=== PATIENT | male | born 1935 | race African-American/Black ===

== ENCOUNTER 2017-07-23 08:50 | Inpatient (IN) | payer MEDICARE, OTHER ==
[2017-07-23 09:56] LABS: Hematocrit 19.6 % (42.0-52.0); Mean Platelet Volume 13.9 fL (7.4-10.4); Red Blood Cell (RBC) Count 2.01 mill/uL (4.70-6.10); White Blood Cell (WBC) Count 3.4 thou/uL (4.8-10.8)
[2017-07-23 09:59] LABS: PTT 31.4 SEC (22.9-36.1); Prothrombin Time 14.1 SEC (12.0-14.7)
[2017-07-23 10:11] LABS: Anisocytosis SLIGHT = 6-15 cells (100X) (0-5/hpf); Band 23 % (5-11); Neutrophil 43 % (42-75); Polychromasia SLIGHT = 2-3 cells (100X) (0-2/hpf)
[2017-07-23 10:13] LABS: ALT (SGPT) 12 U/L (8-55); AST (SGOT) 17 U/L (5-34); Alkaline Phosphatase 76 U/L (40-150); Anion Gap 15 mmol/L (10-20); BUN (Urea Nitrogen) 67 mg/dL (8.4-25.7); Bilirubin, Total 0.8 mg/dL (0.2-1.2); Calc. Creatinine Clearance 0 mL/min (70-130); Calcium 8.9 mg/dL (7.8-10.44); Carbon Dioxide 31 mmol/L (23-31); Chloride 98 mmol/L (98-107); Estimated GFR-MDRD 13; Globulin 4.5 g/dL (2.4-3.5); Lipase 20 U/L (8-78); Protein, Total 7.8 g/dL (5.8-8.1)
--- NOTE | 2017-07-23 11:58 | CT ---
CT ANGIOGRAM ABDOMEN AND PELVIS WITH IV CONTRAST AND 3D RECONSTRUCTIONS: DATE: 07/23/17. HISTORY: Bright red blood in stool with onset of symptoms 1 day ago. The patient has associated abdominal ofelia n. COMPARISON: Noncontrasted CT abdomen and pelvis on 10/03/13 as well as noncontrast CT thorax on 11/30/14. There is bibasilar atelectasis present with motion at each lung base. There is persistent elevation of the left hemidiaphragm. Multiple osseous sclerotic metastatic lesions are seen throughout visualized thoracic as well as lumb ar spine involving the visualized lower ribs and each scapulae as well as multiple sclerotic metastat ic lesions within the pelvis and involving the visualized proximal bilateral femurs. Postsurgical ch anges lumbar spine are noted with pedicular screws within the L2, L3, and L4 vertebral bodies with ev idence of posterior fusion at these levels. There is a focal area of moderate narrowing involving the proximal superior mesenteric artery which d oes not appear to represent atherosclerotic area of narrowing and is likely related to a kink as the vessel extends at a 90-degree angle to the left in this region. The superior mesenteric and inferior mesenteric arteries appear patent. There is a single patent right renal artery with 2 left renal ar teries which are small in caliber but do appear patent. The abdominal aorta is normal in caliber without evidence of an aortic dissection. There is scattere d calcified atherosclerotic plaque within the abdominal aorta as well as involving the iliac arteries . There is mild narrowing involving the proximal bilateral internal iliac arteries due to eccentric atherosclerotic plaque. Bilateral common femoral arteries are patent, and the most proximal bilatera l superficial femoral arteries are patent. There is atherosclerotic narrowing and plaque in the prox imal right superficial femoral artery. There is a hypodense lesion at the superior pole left kidney measuring 2 cm, which does demonstrate a ttenuation coefficient suggesting a cyst. There are 2 additional subcentimeter too small to characte rize hypodense lesions in the superior pole and mid portion of the left kidney. The liver, spleen, pancreas, bilateral adrenal glands, and the right kidney demonstrate a normal CT a ppearance. Calcified granuloma is seen in the right hepatic lobe. The becker of the urinary bladder appear thickened, some of which could be related to incomplete diste ntion. However, cystitis is a possibility. Surgical clips are seen in the pelvis with findings which may be related to prostatectomy as the pros romero gland is not visualized on this exam. The becker of the rectum appear mildly thickened, but this is probably related to incomplete distentio n. The opacified small bowel has a normal CT appearance and no dilated loops of small bowel are pres ent. IMPRESSION: 1. Diffuse osteoblastic metastatic disease. 2. Prostatectomy. 3. Left renal cyst with subcentimeter difficult to characterize hypodense left renal lesion also pre sent. 4. Post cholecystectomy changes. 5. Prominent elevation of the left hemidiaphragm with volume loss present at each lung base. 6. No dilated loops of small bowel are seen. 7. There is a moderate to severe focal narrowing in the proximal superior mesenteric artery, but thi s is probably related to a prominent kink; there is no evidence of atherosclerotic narrowing of the s uperior mesenteric artery. The superior mesenteric artery distal to this region is well opacified. 8. Postsurgical changes right iliac bone. There are also postsurgical changes lumbar spine. POS: LARRY
--- NOTE | 2017-07-23 13:54 | HP-2 ---
CODE STATUS: FULL. PRIMARY CARE PHYSICIAN: Dr. Osei Forbes in [place], [place]. ATTENDING PHYSICIAN: Shari Fry M.D. RESIDENT PHYSICIAN: Jf Dumont M.D. CHIEF COMPLAINT: Bright red blood per rectum. HISTORY OF PRESENT ILLNESS: This is an 82-year-old male who presents with a 1-day history of bright red blood per rectum. He has had multiple year history of episodes of GI bleeding and had a workup e xtensively with the last endoscopy completed in 12/2016 that was unremarkable. He states he usually gets transfused and then discharged home. He is under treatment for bone cancer and has had radiatio n as recently as two and a half months ago. He states his bowel movements are watery with blood. He states he feels weak and lightheaded when he stands. Two to three weeks ago, he had a similar episo de in [place] and he was hospitalized at that time and received transfusion too. In the ER, he was t ransfused 1 unit of platelets and 1 unit of packed red blood cells. 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 PAST SURGICAL HISTORY: Cholecystectomy, back surgery x3, hernia and dialysis shunt and then a TURP. ALLERGIES: Apresoline. MEDICATIONS: 1. Amlodipine 5 mg. 2. Metoprolol tartrate 50 mg b.i.d. 3. Gabapentin 300 mg. 4. Doxazosin 2 mg. 5. Bicalutamide 50 mg. 6. Sodium bicarbonate 650 mg b.i.d. 7. Hydralazine 50 mg. FAMILY HISTORY: Noncontributory. SOCIAL HISTORY: The patient does have a 11-ruxz-alcf smoking history, but he quit 15 years ago. Alc ohol socially and he denies any drug use. REVIEW OF SYSTEMS: GENERAL: He denies any fevers or chills. He does admit to weight loss, but he cannot quantify how m uch. He denies any night sweats. He does admit to fatigue. EYES: Denies vision changes. ENT: Denies nasal congestion, rhinorrhea, or sore throat. RESPIRATORY: Denies cough, congestion. He does admit to exertional shortness of breath. CARDIOVASC ULAR: Denies chest pain, palpitations, edema. GASTROINTESTINAL: Denies nausea. He does admit to vomiting, abdominal pain, GI bleeding, early sati ety. GENITOURINARY: Denies incontinence, dysuria, polyuria. SKIN: Denies rashes, lesions, jaundice, itching. MUSCULOSKELETAL: Denies pain, tenderness, stiffness, swelling or arthritis. NEUROLOGIC: He does admit to weakness and tingling in his legs. He denies any numbness, syncope, or seizures. PSYCHIATRIC: He denies anxiety or depression. PHYSICAL EXAMINATION: VITAL SIGNS: Blood pressure 128/50, pulse 85, respiration 18, temperature max 98.0, pulse ox 99% on room air, current weight is 61 kilos. GENERAL: He is alert and oriented x4. He is appropriate, interactive. HEENT: PERRLA. Conjunctivae within normal limits. ENT: Tympanic membranes pearly do without bulging or erythema. Nasal mucosa and oropharynx within normal limits. NECK: Supple, no lymphadenopathy, no thyromegaly, no bruit. CARDIOVASCULAR: He had an irregular rhythm, regular rate, no murmurs. Radial and pedal pulses equal bilaterally. RESPIRATORY: Normal effort noted. No retractions. CHEST: Clear. LUNGS: Clear to auscultation bilaterally. SKIN: Warm and dry. No cyanosis. No lesions. ABDOMEN: Soft. Bowel sounds are present x4. No mass or distention. He did have tenderness to palp ation, but it was more of a superficial tenderness from a postherpetic neuralgia following a shingles infection the last month. Also, on his abdominal exam, he had bright red blood per rectum EXTREMITIES: No clubbing, cyanosis or edema. MUSCULOSKELETAL: Structure, tone. Muscle strength. Range of motion within normal limits. Muscle s trength is 4/5 in lower extremities, 5/5 in upper extremities. NEUROLOGIC: No focal neurologic deficits. Sensation within normal limits. Cranial nerves II-XII gr ossly intact. GCS is 15. PSYCHIATRIC: Appropriate. LABORATORY DATA: We have a white blood cell count 3.4, platelet count 26, hemoglobin 6.4, hematocrit 19.6, MCV 97.7 and 23% bands, 43% neutrophils. Sodium 140, potassium 3.8, chloride 98, bicarbonate 31, BUN 67, creatinine 5.31, glucose 125, calcium 8.9, total protein 7.8, albumin 3.3, total bilirubi n 0.8, AST 17, ALT 12, alkaline phosphatase 76. Blood type was O negative. He did have a positive f ecal occult blood test. PTT showed 31.4. PT showed 14.1, INR showed 1.1, lipase is 20. EKG showed atrial fibrillation with controlled ventricular response and a prolonged QTC. He did have a CT abdom en that showed diffuse osteoblastic disease, prostatectomy, left renal cyst, post-cholecystectomy dalia nges, prominent elevation of his left hemidiaphragm and no dilated bowel loops. ASSESSMENT AND PLAN: This is an 82-year-old male who presents with: 1. Gastrointestinal bleeding, status post transfusion. I will get a repeat CBC coming back later to day. We will consult with Dr. Call with GI and requesting records from his outside facility. 2. Severe symptomatic anemia. He is status post transfusion. We will monitor the CBC. We will put him on tele. 3. Thrombocytopenia. He is status post platelet transfusion. We will monitor that going forward as well. 4. End-stage renal disease on dialysis. We can consult to Dr. Dejuan Johnson to keep him on hi s Sunday, , and Sunday dialysis schedule. 5. Hypertension. Continue his home medications. 6. Malignancy, will continue his home meds. 7. Gastrointestinal for prophylaxis. We will put him on Protonix b.i.d. for his gastrointestinal bl eeding. Disposition and length of hospital stay will be at least 2 midnights. Symptomatic medications will be provided. History and physical exam as well as management has been discussed with Dr. Fry.
[2017-07-23] MEDS ORDERED: Acetaminophen 325 MG TAB PO PRN (14:29)
[2017-07-23] MEDS ORDERED: Pantoprazole 40 MG VIAL IVP SCH (14:45)
[2017-07-23 15:03] LABS: Iron 188 ug/dL (65-175)
[2017-07-23] MEDS ORDERED: GoLYTELY 4,000 ml Bottle PO SCH (17:15)
[2017-07-23] MEDS ORDERED: ISOVUE-370 76%-LOCM 1 ML ONE (17:20)
[2017-07-23] MEDS ORDERED: Iopamidol 370 76% 50 ML VIAL FS ONE (17:20)
[2017-07-23 19:22] LABS: Hematocrit 17.7 % (42.0-52.0)
[2017-07-23] MEDS ORDERED: FLU VACC TS2017-18 (>65YR) 0.5 ML SYRINGE IM ONE (21:00)
--- NOTE | 2017-07-23 21:00 | PDOC.EVN ---
Event Note - Event Note Event Note: Patient seen and examined at 1445. Case discussed with Dr. Dumont and his H&P reviewed and repeated by me. Agree with A/P as documented. Mr Beltran is an 82 yo BM with PMH of metastatic prostate cancer, recurrent hematochezia, ESRD, afib, h/o recurrent blood transfusions, HTN who presents with a one day history of hematochezia, generalized weakness. He has multiple admission for this (at [facility] and in [place]). He has had multiple EGDs/ colonoscopies that were negative. He also notes some mild bleeding of his gums. Denies petechial rash, hematuria, dyspnea and chest pain. afebrile, VSS CV: irreg irregular but normal rate. no m Lungs: ctab Abd: soft, nt/nd, +bs. Hemoccult positive Labs reviewed. 1. Hematochezia- stable vitals 2. Symptomatic iron deficiency anemia 3. Pancytopenia- most likely secondary to bone marrow dysfunction from bony mets 4. Metastatic Prostate Cancer 5. ESRD- dialysis T,Th, Sat Transfuse PRBC and platelets with serial CBCs. We do not have any records of his baseline Hgb and Plt count. Check peripheral smear and call his oncologist to discuss case with him. Per patient he has been getting transfusions at least every other week. Appreciate GI and nephro recs
[2017-07-23] MEDS: Pantoprazole 40 MG VIAL IVP SCH (23:36)
[2017-07-24 00:43] LABS: Hematocrit 16.2 % (42.0-52.0); Mean Platelet Volume 8.3 fL (7.4-10.4); Red Blood Cell (RBC) Count 1.76 mill/uL (4.70-6.10)
[2017-07-24 01:05] LABS: Anisocytosis MODERATE=16-30 cells (100X) (0-5/hpf); Band 8 % (5-11); Neutrophil 41 % (42-75)
--- NOTE | 2017-07-24 06:21 | PDOC.FM ---
- Subjective Subjective: Patient states he had a good night. He states he was still having bloody bowel movements. He does note that he is no longer as lightheaded or weak when he stands or walks this morning. He will be going for endoscopic evaluation and dialysis today. He has no other complaints at this time. - Objective Vital Signs & Weight: Vital Signs (12 hours) Temp Pulse Pulse Resp BP BP Pulse Ox 07/24/17 04:00 98.2 F 83 16 153/68 H 99 07/24/17 00:49 98.3 F 85 14 139/61 95 07/24/17 00:37 98.3 F 85 14 139/61 95 07/23/17 20:50 98.6 F 87 18 98 Weight Weight 71.804 kg I&O: 07/22/17 07/23/17 07/24/17 06:59 06:59 06:59 Intake Total 3900 Output Total 400 Balance 3500 Result Diagrams: 07/24/17 06:07 07/24/17 06:07 Phys Exam - Physical Examination HEENT: moist MMs Neck: no nodes Respiratory: no wheezing, clear to auscultation bilateral Cardiovascular: RRR, no significant murmur Gastrointestinal: soft, non-tender, no distention, positive bowel sounds Musculoskeletal: no edema, pulses present Neurological: non-focal, moves all 4 limbs Psychiatric: normal affect, A&O x 3 Skin: no rash Dx/Plan (1) GI bleeding Code(s): K92.2 - GASTROINTESTINAL HEMORRHAGE, UNSPECIFIED Status: Acute Plan: -Acute drop in Hgb to 5.3 following transfusion of blood -Dr. Call with GI consulted, appreciate his recs -Plans for endoscopy today. -Will await findings (2) Symptomatic anemia Code(s): D64.9 - ANEMIA, UNSPECIFIED Status: Acute Plan: -Hgb today 6.5 -Will transfuse 2u pRBCs this am -Will recheck this afternoon (3) Prostate cancer metastatic to bone Code(s): C61 - MALIGNANT NEOPLASM OF PROSTATE; C79.51 - SECONDARY MALIGNANT NEOPLASM OF BONE Status: Acute Plan: -On hormonal therapy -Requesting records from oncologist Dr. Quinteros -Will follow up with his recs. (4) Pancytopenia Code(s): D61.818 - OTHER PANCYTOPENIA Status: Acute Plan: Platelets this am 89 following 1u platelets -Hgb 5.3, undergoing 2u pRBCs -WBC 2.0 -Will contact Dr. Quinteros to find baseline values and overall treatment plans. (5) ESRD (end stage renal disease) on dialysis Code(s): N18.6 - END STAGE RENAL DISEASE; Z99.2 - DEPENDENCE ON RENAL DIALYSIS Status: Acute Plan: -Dialysis this AM -Will keep on , , Sun -Nephrology, Dr. Zaidi, consulted, appreciate his recs (6) Hypertension, benign Code(s): I10 - ESSENTIAL (PRIMARY) HYPERTENSION Status: Chronic Plan: -Continue home meds. - Plan Plan: Will recheck Hgb and await endoscopic results.
[2017-07-24 06:41] LABS: Mean Platelet Volume 9.2 fL (7.4-10.4); White Blood Cell (WBC) Count 2.6 thou/uL (4.8-10.8)
--- NOTE | 2017-07-24 06:41 | CON ---
GI CONSULTATION NOTE DATE OF CONSULTATION: 07/23/2017 REASON FOR CONSULTATION AND HISTORY OF PRESENT ILLNESS: Mr. Beltran is an 82-year-old gentleman with a history of metastatic prostate cancer to the bone, it is fairly extensive. His treatment has been over at [facility]. He came to the hospital and was admitted for 1 day history of bright red blood per rectum. He notes that it started yesterday, had about 3 episodes of blood wi th some clot. He had similar episodes of bleeding back in 12/2016 at which time he underwent a colon oscopy at [facility] by Dr. Scotty Jonas and was found to have internal hemorrho ids and some radiation telangiectasias, neither of which were bleeding at that time. He also had an EGD in 11/2016, which was negative. The patient denies any abdominal pain. Apparently in the ER, he had a CT angiogram that showed multiple metastatic lesions in the thoracic, lumbar spines, ribs, fem urs and humerus bilaterally. The patient denies any bone pain at this time. He is on dialysis as we ll in Sunday, and Sunday. His bowel movements have been pretty loose with some blood. W hen he came, he was weak and lightheaded and had a hemoglobin of 6, reports that he had to get transf used a few weeks ago in [place]. In the ER here, apparently, he was given a unit of blood and a unit of platelets. PAST MEDICAL HISTORY: 1. Metastatic prostate cancer of the bone. 2. Reflux. 3. Hypertension. 4. Prostate cancer, metastatic as above. 5. History of radiation proctitis. 6. End-stage renal disease, on dialysis Sunday, and Sunday. 7. Atrial fibrillation. PAST SURGICAL HISTORY: Includes cholecystectomy, back surgery x2, hernia, dialysis shunt and TURP. ALLERGIES: APRESOLINE. MEDICATIONS: Amlodipine, metoprolol, gabapentin, doxycycline, bicalutamide, sodium bicarbonate b.i.d . and hydralazine. SOCIAL HISTORY: A 01-epol-buiq smoking history. Alcohol socially, he denies now. PRESENT MEDICATIONS: Tylenol p.r.n., pantoprazole 40 mg IV one q.12 hours. PHYSICAL EXAMINATION: GENERAL: The patient is resting in bed. He is thin and frail. VITAL SIGNS: Temperature is 98, pulse 87, blood pressure is 106/74. LUNGS: Clear. HEART: Regular rate and rhythm, without clicks or murmurs. ABDOMEN: Soft and nontender, without palpable hepatosplenomegaly. No rebound or guarding. RECTAL: Shows no overt masses. There is some old blood on the examining glove. LABORATORY FINDINGS: White count 3.4. Hemoglobin is 6.4. His last hemoglobin here was 11.6 in 03/14 015, although looking at his labs from when he was in the hospital in December and several other times to the [facility] where he typically goes, has run between 7 and 8 range for several months now and gets transfused not infrequently. Platelet count 26,000. INR 1.1, BUN and creatinine are 67 and 5.31, sodium 140 and potassium 3.8. Liver function tests normal. ASSESSMENT: 1. Chronic anemia. He does have many components that may be contributing to this. His renal failur e and his metastatic bone cancer originating from the prostate and he has got a little bit of rectal bleeding. I suspect that the burden of metastatic disease in the bone is probably the driving factor and the fact that he is pancytopenic and his MCV is high. 2. Rectal bleeding. This has been attributed to hemorrhoids in the past and he has had on and off b leeding, had received transfusion a few months ago in [place] apparently. It will be reasonable to r epeat a flexible sigmoidoscopy and see if there are something we can treat there endoscopically. APC would be a reasonable treatment for radiation telangiectasias if they are significant. Although, I do not think that hemorrhoid surgery is in this patient's best interest with the platelet count of 26 ,000. We will plan limited sigmoidoscopy for APC tomorrow and get a unit of platelets on transfusion , and he needs to get a blood transfusion as well first.
[2017-07-24 06:47] LABS: Anion Gap 17 mmol/L (10-20); BUN (Urea Nitrogen) 76 mg/dL (8.4-25.7); Calc. Creatinine Clearance 12 mL/min (70-130); Calcium 8.3 mg/dL (7.8-10.44); Carbon Dioxide 25 mmol/L (23-31); Chloride 100 mmol/L (98-107); Estimated GFR-MDRD 13
--- NOTE | 2017-07-24 06:48 | CON ---
DATE OF CONSULTATION: 07/23/2017 CONSULTING PHYSICIAN: Dejuan Johnson M.D. REQUESTING PHYSICIAN: Jf Dumont MD REASON FOR CONSULTATION: The need for maintenance hemodialysis. IMPRESSION: 1. End-stage renal disease, hemodialysis dependent on Sunday, , and Sunday schedule. 2. Severe anemia in the context of multifactorial etiologies including blood loss. 3. History of metastatic prostatic carcinoma. PLAN: 1. The patient to receive dialysis today and then tomorrow. 2. The patient likely to get 2 more units of blood during dialysis tomorrow. HISTORY OF PRESENT ILLNESS: History is that of an 82-year-old gentleman recently initiated on hemodi alysis, who does have issues with anemia given the fact that this patient has metastatic prostatic ca rcinoma. The patient currently receiving erythropoiesis stimulating agent in the name of DiaBeta. PAST MEDICAL HISTORY: Significant for metastatic prostatic carcinoma, hypertension, reflux disease, atrial fibrillation, and end-stage renal disease. ALLERGIES: APRESOLINE. MEDICATIONS: As documented on [place]. FAMILY HISTORY: Not significantly related to the presenting illness. SOCIAL HISTORY: Denies alcohol, tobacco or illicit drug use. PHYSICAL EXAMINATION: GENERAL: On examination, the patient was found to be ill-looking. Noted with the following vital si gns. VITAL SIGNS: Afebrile with temperature 98.6, pulse 87, respiratory rate of 18, O2 sat of 99% with bl ood pressure 172/74. HEENT: Unremarkable. Moist oral mucosa. NECK: Supple. CARDIOVASCULAR SYSTEM: First and second heart sounds were heard. RESPIRATORY SYSTEM: Clear to auscultation. DIGESTIVE SYSTEM: Revealed a benign abdomen with positive bowel sounds. EXTREMITIES: No peripheral edema. SKIN: No new gross rash. LYMPHATICS: No peripheral lymphadenopathy. SUMMARY: An 82-year-old gentleman who presented here with GI bleed and noted to be severely anemic t o the point requiring blood transfusion.
[2017-07-24 08:34] LABS: Band 15 % (5-11); Hypochromia SLIGHT = 6-15 cells (100X) (0-5/hpf); Neutrophil 25 % (42-75); Polychromasia SLIGHT = 2-3 cells (100X) (0-2/hpf)
[2017-07-24] MEDS: Pantoprazole 40 MG VIAL IVP SCH ×2 (10:28→21:35)
--- NOTE | 2017-07-24 13:27 | EKG ---
Test Reason : Blood Pressure : / mmHG Vent. Rate : 092 BPM Atrial Rate : 100 BPM P-R Int : 000 ms QRS Dur : 080 ms QT Int : 392 ms P-R-T Axes : 000 063 072 degrees QTc Int : 484 ms Atrial fibrillation Prolonged QT Abnormal ECG Confirmed by CHIQUITA VOSS ([id number]), assistant production editor YADIEL HOWARD ([id number]) on 07/24/2017 1:26:59 PM Referred By: Confirmed By:CHIQUITA VOSS
--- NOTE | 2017-07-24 13:32 | ADD-PRG ---
DATE OF SERVICE: 07/24/2017 This is an addendum to the note of Dr. fJ Dumont. Mr. Beltran is an unfortunate 82-year-old black male patient with metastatic prostate cancer. He was admitted with a rather profound anemia with a hemoglobin of 6. He has a history of metastatic prost ate cancer which is likely causing his anemia through invasion of the bone marrow. He has been trans fused with packed cells and platelets and this will be continued to reach his normal of around 7-8. His overall prognosis would seem to be quite poor. He is currently in dialysis and is in no distress . He is awake, alert, talkative.
[2017-07-24 15:21] VITALS: BMI 22.1
[2017-07-24] MEDS ORDERED: Propofol 200 MG/20 ML VIAL ONE (16:07)
[2017-07-24] MEDS ORDERED: Lidocaine 1% PF 5 ML VIAL ONE (16:07)
--- NOTE | 2017-07-24 19:11 | OP ---
DATE OF PROCEDURE: 07/24/2017 PROCEDURE: Colonoscopy with control of hemorrhage. DESCRIPTION OF PROCEDURE: After speaking with the patient and outlining the risks and benefits of the procedures including risk of bleeding, perforation, infection or reaction to anesthesia, and pain, informed consent was obtained. The patient then was taken to the endoscopy suite, and after a timeout was performed, induction of deep sedation with propofol was administered via anesthesia support. A standard colonoscope was then introduced into the rectum and advanced to the terminal ileum with careful examination of the mucosa upon withdrawal. FINDINGS: Rectum: normal susan-rectal examination with no evidence of external hemorrhoids. Normal mucosa was seen in the terminal ileum. A large amount of blood mixed with stool was seen throughout the entire colon. However, upon aggressive irrigation and suctioning, the mucosa was able to be seen adequately for the purposes of determination of an origin of GI bleeding. A 2-3 mm polyp was seen in the transverse colon, but not intervened upon given increased risk of bleeding from this particular lesion. Another 3 mm polyp was seen in the distal transverse colon, but not removed again because of risk of bleeding. A 4 -5 mm lesion was seen in the descending colon and not removed due to increased risk of bleeding. A 3 mm arteriovenous malformation was seen in the sigmoid colon at approximately 30 cm with overlying clot, but not actively bleeding. Aggressive irrigation and suctioning did not induce bleeding from this particular lesion. Given that this lesion had high risk stigmata of rebleeding , argon plasma coagulation was then applied to this lesion with good hemostasis/ cautery achieved. A 1 cm polyp was seen in the sigmoid colon, but not intervened upon due to increased risk of bleeding. The mucosa in the rectum did have 1-2 areas of linear, petechia-like oozing of blood, but no significant active bleeding seen at this particular point in time. Upon retroflexion, large non-bleeding internal hemorrhoids were seen. IMPRESSION: 1. Multiple colonic polyps are seen throughout the colon ranging between 3-10 mm in size with the largest being in the sigmoid colon. These polyps were not removed at this particular point in time due to the admitting reason of GI bleed and possibility of creating more bleeding in the process. 2. A 3 mm arteriovenous malformation with overlying clot seen in the sigmoid colon with destruction of the lesion with APC. This is the most likely reason for the patient's hematochezia at this point in time 3. Large internal hemorrhoids. RECOMMENDATIONS: 1. Follow up with primary inpatient team. 2. Continue to trend H&H and transfuse as necessary to maintain an H&H of approximately 7/. 3. Continue to monitor for signs of GI bleeding. If he continues to have bright red blood per rectum, would consider CT angiography for evaluation of the bleeding source. 4. Can place patient on clear liquid diet, and with no signs of further bleeding , could ADAT We will continue to follow. Please call with any questions. HUSAM
--- NOTE | 2017-07-24 21:39 | PRG ---
DATE OF SERVICE: 07/24/2017 SUBJECTIVE: Sharon Beltran seen and examined today at dialysis and ill-looking, remained hemodynamic ally stable. OBJECTIVE: VITAL SIGNS: Afebrile with temperature 98.4, pulse 73, blood pressure 136/57, and respiratory rate o f 14. HEENT: Unremarkable. CARDIOVASCULAR: First and second heart sounds were heard. RESPIRATORY: Clear to auscultation. DIGESTIVE: Revealed a benign abdomen with positive bowel sounds. EXTREMITIES: No peripheral edema. SKIN: No new gross rash. LYMPHATICS: No peripheral lymphadenopathy. LABORATORY INVESTIGATIONS: Significant for hemoglobin that dropped down into the 5 range. IMPRESSION: 1. Multifactorial, severe anemia compounded by gastrointestinal blood loss. 2. End-stage renal disease on hemodialysis. PLAN: 1. The patient to continue with hemodialysis per his schedule. 2. Possible Gastroenterology intervention today. 3. Transfuse this patient with platelets as well as red blood cells. 4. Further management to be dependent on the clinical course.
[2017-07-25 05:47] LABS: Anion Gap 12 mmol/L (10-20); BUN (Urea Nitrogen) 32 mg/dL (8.4-25.7); Calc. Creatinine Clearance 17 mL/min (70-130); Calcium 8.7 mg/dL (7.8-10.44); Carbon Dioxide 29 mmol/L (23-31); Chloride 102 mmol/L (98-107); Estimated GFR-MDRD 20
[2017-07-25 06:08] LABS: Band 7 % (5-11); Hematocrit 28.2 % (42.0-52.0); Mean Platelet Volume 7.9 fL (7.4-10.4); Neutrophil 42 % (42-75); Red Blood Cell (RBC) Count 3.16 mill/uL (4.70-6.10); White Blood Cell (WBC) Count 2.5 thou/uL (4.8-10.8)
--- NOTE | 2017-07-25 06:14 | PDOC.FM ---
- Objective Vital Signs & Weight: Vital Signs (12 hours) Temp Pulse Resp BP Pulse Ox 07/25/17 04:22 98.7 F 81 16 147/67 H 94 L 07/25/17 04:00 98.7 F 81 147/67 H 07/24/17 23:37 98.6 F 77 14 171/77 H 98 07/24/17 22:03 98.6 F 77 14 98 Weight Admit Weight 71.668 kg Weight 69.49 kg Most Recent Monitor Data Heart Rate from ECG 79 NIBP 137/66 Respiration from ECG 14 I&O: 07/23/17 07/24/17 07/25/17 06:59 06:59 06:59 Intake Total 3900 2200 Output Total 400 3100 Balance 3500 -900 Result Diagrams: 07/25/17 05:02 07/25/17 05:02 Dx/Plan (1) GI bleeding Code(s): K92.2 - GASTROINTESTINAL HEMORRHAGE, UNSPECIFIED Status: Acute Plan: -Hgb 9.5 this AM following transfusions -Dr. Reyes with GI consulted, appreciate his recs -Colonoscopy found multiple polyps and AVMs, use of Argon for hemostasis -Patient will likely need to be followed by his PCP and oncologist for follow up of labs. (2) Symptomatic anemia Code(s): D64.9 - ANEMIA, UNSPECIFIED Status: Acute Plan: -Hgb today 9.5 today -No longer symptomatic (3) Prostate cancer metastatic to bone Code(s): C61 - MALIGNANT NEOPLASM OF PROSTATE; C79.51 - SECONDARY MALIGNANT NEOPLASM OF BONE Status: Acute Plan: -On hormonal therapy -Requesting records from oncologist Dr. Quinteros -Will follow up with his recs. (4) Pancytopenia Code(s): D61.818 - OTHER PANCYTOPENIA Status: Acute Plan: Platelets this am 117 -Hgb 9.5 -WBC 2.5 -Will attempt to contact Dr. Quinteros again to find baseline values and overall treatment plans. (5) ESRD (end stage renal disease) on dialysis Code(s): N18.6 - END STAGE RENAL DISEASE; Z99.2 - DEPENDENCE ON RENAL DIALYSIS Status: Acute Plan: -Dialysis this AM -Will keep on T, , Sat -Nephrology, Dr. Zaidi, consulted, appreciate his recs (6) Hypertension, benign Code(s): I10 - ESSENTIAL (PRIMARY) HYPERTENSION Status: Chronic Plan: -Continue home meds. - Plan Plan: Patient can likely be discharged today with follow up with GI for polyps, Oncology for prostate cancer & anemia, and PCP for coordination of his healthcare needs.
[2017-07-25] MEDS: Pantoprazole 40 MG VIAL IVP SCH (10:50)
--- NOTE | 2017-07-25 11:04 | PQF ---
CLINICAL DOCUMENTATION IMPROVEMENT CLARIFICATION FORM: ICD-10 Updated PLEASE DO AN ADDENDUM TO THE PROGRESS NOTE WITH ANY DOCUMENTATION UPDATES OR ADDITIONS AND CARRY THROUGH TO DC SUMMARY. THANK YOU. DATE: 07/25/17 ATTN: Dr. Dumont/ Attending Dr. Granado Please exercise your independent, professional judgment in responding to the clarification form. 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 ACUTE DROP IN HGB TO 5.3 FOLLOWING TRANSFUSION OF BLOOD. SYMPTOMATIC ANEMIA. ACUTE. RENAL PN 07/24: MULTIFACTORIAL, SEVERE ANEMIA COMPOUNDED BY GI BLOOD LOSS. RISKS: H&P: HX SIGNIFICANT FOR BONE CANCER. HYPERTENSION, PROSTATE CANCER, ESRD. TREATMENT: CPOE 07/23: GI CONSULT TRANSFUSIONS 07/23: LEUKOCYTE-REDUCED RED BLOOD CELLS @ 1058 07/24: LEUKOCYTE-REDUCED RED BLOOD CELLS @ 0112 LEUKOCYTE-REDUCED RED BLOOD CELLS @ 0614 LEUKOCYTE-REDUCED RED BLOOD CELLS @ 0859 LEUKOCYTE-REDUCED RED BLOOD CELLS @ 0950 Thank you, Jyoti (This form is maintained as a part of the permanent medical record) 2015 [employer] All Rights Reserved Jyoti Tay RN, BSN [email or web address] Office: [phone] [facility]
--- NOTE | 2017-07-25 11:29 | ADD-PRG ---
DATE OF SERVICE: 07/25/2017 This is an addendum to the note of Dr. Jf Dumont. Mr. Beltran looks and feels much better this morning. He underwent colonoscopy yesterday per Dr. Darya marrero with finding of some colon polyps and AV malformations, telangiectasia's which were cauterized. H e is now back up to a hemoglobin of above 9. He will be discharged and instructed to follow up close ly with his PCP.
[2017-07-25 12:00] VITALS: BP 172/80; TEMP 98
--- NOTE | 2017-07-25 17:41 | DIS-2 ---
DATE OF ADMISSION: 07/23/2017 DATE OF DISCHARGE: 07/25/2017 RESIDENT PHYSICIAN: Jf Dumont M.D. ADMITTING ATTENDING: Catalino Granado M.D. DISCHARGE ATTENDING: Catalino Granado M.D. CONSULTATIONS: Gastroenterology with Dr. Call, Nephrology with Dr. Dejuan Johnson. Consults for PT evaluation and treatment. PROCEDURES: The patient did have an abdominal pelvis CTA that showed it was done on 07/23/2017. It showed diffuse osteoblastic metastatic disease, evidence of a prostatectomy, a left renal cyst with subcentimeter, difficulty to characterize hypodense left renal lesion post-cholecystectomy changes, prominent elevation of left hemidiaphragm with volume loss present in each lung base, no dilated loops of small bowel are seen in a moderate to severe focal narrowing in the proximal superior mesenteric artery. He also underwent a colonoscopy with Dr. Reyes who was covering for Dr. Call. Colonoscopy did show multiple colonic polyps seen throughout the colon ranging from 3-10 mm in size with the largest being in the sigmoid colon. These polyps were not removed at this particular point in time due to the admitting reason of GI bleed and possibility of occurring more bleeding in the process. Also, a 3 mm arteriovenous malformation overlying clot seen in the sigmoid colon with destruction of lesion with APC. The patient also did receive 5 units of leukoreduced red blood cells and 2 units of leukoreduced platelets during his hospitalization. Hemodialysis on Sunday to keep him on his regular dialysis schedule. PRIMARY DIAGNOSES: 1. Gastrointestinal bleeding. 2. Symptomatic anemia. 3. Prostate cancer, metastatic to bone. 4. Pancytopenia. 5. End-stage renal disease, on dialysis. 6. Hypertension. DISCHARGE MEDICATIONS: 1. Metoprolol tartrate 50 mg b.i.d. 2. Doxazosin 2 mg at bedtime. 3. Gabapentin 300 mg at bedtime. 4. Casodex 50 mg daily. 5. Amlodipine 5 mg daily. 6. Hydralazine 50 mg daily. 7. Sodium bicarbonate 650 mg b.i.d. HISTORY OF PRESENT ILLNESS AND HOSPITAL COURSE: This is an 82-year-old male who presents with 1-day history of bright red blood per rectum. He has had multiple year history of episodes of GI bleeding and has had a workup extensively with last endoscopy completed in 12/2016 that was unremarkable. He states he usually gets transfused and then discharged home. He is under treatment for bone cancer and has had radiation as recently as two and a half months ago. He states his bowel movements are watery with blood. He states he feels weak and lightheaded when he stands. Two to three weeks ago, he had a similar episode in [place] and he was hospitalized at that time and received transfusions as well. In the ER, he was transfused 1 unit of platelets and 1 unit of packed red blood cells. During his hospitalization, he did undergo 5 units of transfusions of leukoreduced packed red blood cells and 2 units of platelets. His hemoglobin ranged from as low as 5.3 to as high as 9.5. On day of discharge, his white blood cell ranged from 2.0-3.4. Platelet count ranged from 21-117 on day of discharge. The patient also had a ferritin level of 2252 and iron level of 188 , total iron binding capacity 184. He also had a peripheral smear that was completed that did note pancytopenia negative for blast cells. The patient underwent the colonoscopy by Dr. Reyes, had the Argon treatment on [facility]. At that time, he no longer was symptomatic, no longer was bleeding from his rectum and no longer had any of the lightheadedness spells. His lightheadedness and weakness improved from the blood transfusion, but he noted improvement specifically after he had his colonoscopy. Patient also underwent hemodialysis per Dr. Zaidi to keep him on his Sunday, , and Sunday schedule and he tolerated that well. Patient otherwise had no other complications during this hospitalization and will be discharged in appropriate condition. DISPOSITION: Stable. DISCHARGE INSTRUCTIONS: 1. The patient will be discharged home into his own care. 2. Diet will be a renal, low sodium diet. 3. Activity will be as tolerated with no restrictions. Follow up will be with his primary care physician, Dr. Osei sanchez in [place], [place]. Also with Dr. Quinteros, his oncologist down in [place]. We wish him the best of luck hope that he can have some coordination with his care as far as the likely outcome and likely prognosis of his condition, being it be so dismal. [facility] CENTERMadeline
== END 2017-07-25 14:59 | disposition home or self-care (01) | DRG 377 ==
LOC: ERS 08:50 → ERHOLD 12:00 → 2NO 14:20
PROVIDERS: ADMIT Family Medicine; ATTEND Family Medicine
PROC: 30233R1 Transfusion of Nonautologous Platelets into Peripheral Vein, Percutaneous Approach (ICD-10-PCS; 2017-07-23)
PROC: 30233N1 Transfusion of Nonautologous Red Blood Cells into Peripheral Vein, Percutaneous Approach (ICD-10-PCS; 2017-07-23)
PROC: 0W3P8ZZ Control Bleeding in Gastrointestinal Tract, Via Natural or Artificial Opening Endoscopic (ICD-10-PCS; principal; 2017-07-24)
PROC: 5A1D70Z Performance of Urinary Filtration, Intermittent, Less than 6 Hours Per Day (ICD-10-PCS; 2017-07-24)
DX: K55.21 Angiodysplasia of colon with hemorrhage (principal); N18.6 End stage renal disease; C79.51 Secondary malignant neoplasm of bone; D61.818 Other pancytopenia; I12.0 Hypertensive chronic kidney disease with stage 5 chronic kidney disease or end stage renal disease; D69.6 Thrombocytopenia, unspecified; B02.9 Zoster without complications; D63.0 Anemia in neoplastic disease; D50.0 Iron deficiency anemia secondary to blood loss (chronic); K21.9 Gastro-esophageal reflux disease without esophagitis; K63.5 Polyp of colon; K64.8 Other hemorrhoids; I78.1 Nevus, non-neoplastic; Z99.2 Dependence on renal dialysis; Z88.8 Allergy status to other drugs, medicaments and biological substances; Z92.3 Personal history of irradiation
CPT/HCPCS: 36415; 36416; 36430; 74174; 80048; 80053; 82274; 82728; 83540; 83550; 83690; 85025; 85060; 85610; 85730; 86850; 86900; 86901; 87340; 90471; 90682; 90935; 93005; C9113; G0008; G0257; G8987-GO-CI; G8988-GO-CI; G8989-GO-CI; J2001; J2704; P9016; P9035; Q2036

== ENCOUNTER 2017-08-10 14:14 | Day surgery (SDC) | payer MEDICARE ==
[2017-08-10] MEDS ORDERED: FLU VACC TS2017-18 (>65YR) 0.5 ML SYRINGE IM ONE (17:30)
[2017-08-11 00:58] VITALS: BP 142/64; TEMP 98
== END 2017-08-11 00:54 | disposition home or self-care (01) ==
LOC: ONC/OP 14:14 → EDSTATUS 14:17 → ONC/OP 08-11 00:54
PROVIDERS: ATTEND Internal Medicine Nephrology
PROC: 30233R1 Transfusion of Nonautologous Platelets into Peripheral Vein, Percutaneous Approach (ICD-10-PCS; principal; 2017-08-10)
PROC: 30233N1 Transfusion of Nonautologous Red Blood Cells into Peripheral Vein, Percutaneous Approach (ICD-10-PCS; 2017-08-10)
DX: D64.9 Anemia, unspecified (principal); D69.6 Thrombocytopenia, unspecified; I12.0 Hypertensive chronic kidney disease with stage 5 chronic kidney disease or end stage renal disease; N18.6 End stage renal disease; K21.9 Gastro-esophageal reflux disease without esophagitis; I48.91 Unspecified atrial fibrillation; Z88.8 Allergy status to other drugs, medicaments and biological substances; Z99.2 Dependence on renal dialysis; Z87.891 Personal history of nicotine dependence
CPT/HCPCS: 36415; 36430; 86850; 86900; 86901; P9016; P9035

== ENCOUNTER 2017-08-25 09:01 | Observation (INO) | payer MEDICARE ==
[2017-08-25 15:56] VITALS: BP 147/65
[2017-08-25 19:13] VITALS: TEMP 97.4
== END 2017-08-25 18:41 | disposition home or self-care (01) ==
LOC: LAB 09:01 → ONC 10:02
PROVIDERS: ADMIT Internal Medicine Nephrology; ATTEND Internal Medicine Nephrology
PROC: 30233M1 Transfusion of Nonautologous Plasma Cryoprecipitate into Peripheral Vein, Percutaneous Approach (ICD-10-PCS; principal; 2017-08-25)
DX: I12.0 Hypertensive chronic kidney disease with stage 5 chronic kidney disease or end stage renal disease (principal); N18.6 End stage renal disease; D63.1 Anemia in chronic kidney disease; K21.9 Gastro-esophageal reflux disease without esophagitis; C61 Malignant neoplasm of prostate; C41.9 Malignant neoplasm of bone and articular cartilage, unspecified; Z88.8 Allergy status to other drugs, medicaments and biological substances; Z79.899 Other long term (current) drug therapy; Z90.49 Acquired absence of other specified parts of digestive tract; Z98.890 Other specified postprocedural states; Z87.891 Personal history of nicotine dependence; Z99.2 Dependence on renal dialysis
CPT/HCPCS: 36430; 86850; 86900; 86901; 86920; G0379; P9016

== ENCOUNTER 2017-09-02 06:59 | Day surgery (SDC) | payer MEDICARE ==
[2017-09-02 15:30] VITALS: BP 153/71; TEMP 98.2
== END 2017-09-02 15:47 | disposition home or self-care (01) ==
LOC: SDC/OP 06:59 → ONC 07:14 → UNDOADMOB 07:14 → ONC 07:14 → SDC/OP 15:47 → UNDODISOB 15:47
PROVIDERS: ATTEND Internal Medicine Nephrology
PROC: 30233N1 Transfusion of Nonautologous Red Blood Cells into Peripheral Vein, Percutaneous Approach (ICD-10-PCS; principal; 2017-09-02)
DX: I12.0 Hypertensive chronic kidney disease with stage 5 chronic kidney disease or end stage renal disease (principal); N18.6 End stage renal disease; D63.1 Anemia in chronic kidney disease; K21.9 Gastro-esophageal reflux disease without esophagitis; I48.91 Unspecified atrial fibrillation; C61 Malignant neoplasm of prostate; C79.51 Secondary malignant neoplasm of bone; Z99.2 Dependence on renal dialysis; Z79.899 Other long term (current) drug therapy; Z88.8 Allergy status to other drugs, medicaments and biological substances; Z90.49 Acquired absence of other specified parts of digestive tract; Z98.890 Other specified postprocedural states; Z87.891 Personal history of nicotine dependence; Z86.73 Personal history of transient ischemic attack (TIA), and cerebral infarction without residual deficits
CPT/HCPCS: 36430; 86850; 86900; 86901; 86920; P9016; 36415

== ENCOUNTER 2017-09-07 13:07 | Day surgery (SDC) | payer MEDICARE ==
[2017-09-07 15:23] VITALS: BP 150/67; TEMP 97.7
== END 2017-09-07 15:24 | disposition home or self-care (01) ==
LOC: ONC/OP 13:07
PROVIDERS: ATTEND Internal Medicine Nephrology
PROC: 30233R1 Transfusion of Nonautologous Platelets into Peripheral Vein, Percutaneous Approach (ICD-10-PCS; principal; 2017-09-07)
DX: D69.6 Thrombocytopenia, unspecified (principal); I12.0 Hypertensive chronic kidney disease with stage 5 chronic kidney disease or end stage renal disease; N18.6 End stage renal disease; D63.1 Anemia in chronic kidney disease; K21.9 Gastro-esophageal reflux disease without esophagitis; I48.91 Unspecified atrial fibrillation; C61 Malignant neoplasm of prostate; C79.51 Secondary malignant neoplasm of bone; Z99.2 Dependence on renal dialysis; Z79.899 Other long term (current) drug therapy; Z88.8 Allergy status to other drugs, medicaments and biological substances; Z90.49 Acquired absence of other specified parts of digestive tract; Z98.890 Other specified postprocedural states; Z87.891 Personal history of nicotine dependence
CPT/HCPCS: 36430; 86900; 86901; P9035

== ENCOUNTER 2017-09-13 10:50 | Inpatient (IN) | payer MEDICARE ==
[2017-09-13] MEDS ORDERED: Hydrocortisone Sod Succ/PF 100 mg/2 ml Vial ONE (12:09)
[2017-09-13] MEDS ORDERED: Methocarbamol 0.5 GM in Sodium Chloride 0.9% 100 ML IVPB ONE (12:15)
[2017-09-13] MEDS ORDERED: Hydrocortisone Sod Succ/PF 100 mg/2 ml Vial IVP SCH (12:15)
[2017-09-13 12:37] LABS: Hemoglobin 8.1 g/dL (14.0-18.0); Mean Corpuscular HGB CONC 31.1 g/dL (32.0-36.0); Mean Corpuscular Hemoglobin 29.2 pg (27.0-31.0); Mean Corpuscular Volume 93.9 fl (80.0-94.0); Mean Platelet Volume 11.1 fL (7.4-10.4); Platelet Count 19 thou/uL (130-400); RBC Distribution Width 13.5 % (11.5-14.5); Red Blood Cell (RBC) Count 2.78 mill/uL (4.70-6.10); White Blood Cell (WBC) Count 1.4 thou/uL (4.8-10.8)
[2017-09-13 12:51] LABS: Band 12 % (5-11); Lymphocytes 66 % (21-51); MDiff Complete? YES; Monocytes 6 % (0-10); Neutrophil 14 % (42-75); PLT Morphology Comment Appears Decreased; RBC Morphology Normal; Reactive Lymphocytes 2 % (0-10)
[2017-09-13 12:58] LABS: ALT (SGPT) 16 U/L (8-55); AST (SGOT) 22 U/L (5-34); Albumin 3.5 g/dL (3.4-4.8); Alkaline Phosphatase 114 U/L (40-150); Anion Gap 17 mmol/L (10-20); BUN (Urea Nitrogen) 71 mg/dL (8.4-25.7); Bilirubin, Total 0.6 mg/dL (0.2-1.2); CK (CPK) 85 U/L (30-200); Calc. Creatinine Clearance 0 mL/min (70-130); Calcium 8.5 mg/dL (7.8-10.44); Carbon Dioxide 31 mmol/L (23-31); Chloride 96 mmol/L (98-107); Estimated GFR-MDRD 12; Globulin 4.9 g/dL (2.4-3.5); Glucose 119 mg/dL (83-110); Magnesium 2.3 mg/dL (1.6-2.6); Protein, Total 8.4 g/dL (5.8-8.1); Sodium 140 mmol/L (136-145)
--- NOTE | 2017-09-13 13:57 | CT ---
CT OF THE LUMBAR SPINE WITHOUT CONTRAST: Date: 09/13/17 HISTORY: Low back pain for over a week with tremors in legs and tingling in legs. TECHNIQUE: Multiple contiguous axial images were obtained in a CT of the lumbar spine without contrast. Sagittal and coronal reformats were performed. FINDINGS: There are extensive postsurgical changes in the lumbar spine. Currently, hardware is seen spanning th e posterior elements of L2, L3, and L4. The bilateral pedicle screws at these levels show no perihard banerjee lucency. There are prior postsurgical changes from fusion of L4 through S1. No bony narrowing of the central canal is seen. There are sclerotic lesions in the visualized bones c oncerning for blastic metastatic disease. The prevertebral soft tissues show atherosclerotic calcific ations in aorta, but are otherwise unremarkable. IMPRESSION: 1. Extensive postsurgical changes of the lumbar spine without acute osseous abnormality. 2. There are multiple sclerotic lesions in the bones consistent with osseous metastatic disease. POS: BEN
--- NOTE | 2017-09-13 16:31 | PDOC.EVN ---
Attending Addendum - Attending Addendum I personally evaluated the patient and discussed the management with Dr. Mcdonald I agree with the History, Examination, Assessment and Plan documented above with any addition or exceptions noted below. 82 yo BM brought to Er with tremor and weakness. Patient with history Metastatic prostrate CA to bone s/p XRT. Patient with recent GI bleed secondary colon angiodysplasia. s/p several transfusion outpt received 2 units tranfusion PRBC two weeks ago. Patient today notable pancytopenia with WBC 1, 400 HGB 8.1 and Platelets 19,000. PMHX notable HTN ESRD Hemodialysis, prior CVA with right sided hemiparesis. remote history of atrial fibrillation. Patient followed by Nephrology and oncology. Exam notable afebrile HR 86 BP 108/57 alert OX3 right hemiparesis 4/5 RLE No rales Lung exam heart irregular rhythm addomen soft nontender vascular access right upper ext with brisk thrill Patient will be admitted transfuse plts and consider neupogen etc to address leukopenia will consult with oncology for recommendation. 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 Note elevated globulins consider SPEP
[2017-09-13] MEDS ORDERED: Acetaminophen 325 MG TAB PO PRN (18:08)
[2017-09-13] MEDS ORDERED: Ondansetron HCl/PF 4 MG/2 ML Vial IVP PRN (18:08)
[2017-09-13] MEDS ORDERED: HYDROcodone/Acetaminophen 5/325 mg Tablet PO PRN ×4 (18:08→19:46)
[2017-09-13] MEDS ORDERED: Ondansetron ODT 4 MG TAB SL PRN (18:08)
[2017-09-13] MEDS ORDERED: Gabapentin 300 MG CAP PO SCH (21:00)
[2017-09-13] MEDS ORDERED: Doxazosin 2 MG TAB PO SCH (21:00)
[2017-09-13] MEDS: Metoprolol Tartrate 50 MG TAB PO SCH (21:58)
[2017-09-13] MEDS: Sodium Bicarbonate Tab 325 MG TAB PO SCH (21:58)
[2017-09-13 22:03] VITALS: BMI 22.6
--- NOTE | 2017-09-14 00:26 | HP-2 ---
CODE STATUS: FULL. PRIMARY CARE PHYSICIAN: This is a [facility]. Patient's physician is located in [place], [place]. ATTENDING: Dr. Lin. RESIDENT: Dr. Regine Pablo. SPECIALISTS: 1. Nephrology, Dr. Zaidi. 2. Oncology, Dr. Quinteros. CHIEF COMPLAINT: Weakness. HISTORY OF PRESENT ILLNESS: This is an 82-year-old -[place] male with past medical history of metastatic prostate cancer that presented with generalized weakness and worsening lower left extremity numbness and tingling. Patient was recently seen on our service for severe symptomatic anemia. At that time, endoscopy and colonoscopy were performed which did not show any evidence of acute blood loss. Patient does have metastatic prostate cancer and bone marrow appears to be infiltrated and nonfunctioning. Thus, the patient requires recurrent transfusions to maintain levels of hemoglobin and platelets. Left lower extremity numbness and tingling has been present for several months ; however, it did worsen, which is what prompted patient's visit to the emergency department. He denies any chest pain, shortness of breath or palpitations at this time. His last transfusion was on 09/07/[address] Zaidi. He received 2 units of packed red blood cells at that time. Patient was receiving radiation therapy, but has not had that done in several months. Patient was given steroids in the emergency department to help with inflammation and decompression of the spine which is possibly causing the patient's symptoms. Of note, patient's platelets were found to be 19 today, thus prompting his admission into the hospital for further transfusion. PAST MEDICAL HISTORY: 1. Metastatic prostate cancer. 2. Gastroesophageal reflux disease. 3. Hypertension. 4. End-stage renal disease on dialysis Sunday, and Sunday. 5. Atrial fibrillation. PAST SURGICAL HISTORY: 1. Cholecystectomy. 2. Back surgery x3. 3. Hernia and dialysis shunt. 4. TURP. ALLERGIES: APRESOLINE. MEDICATIONS: 1. Amlodipine 5 mg daily. 2. Metoprolol tartrate 50 mg b.i.d. 3. Bicalutamide 50 mg daily. 4. Hydralazine 50 mg daily. 5. Sodium bicarbonate 650 daily. 6. Gabapentin 300 mg daily. FAMILY HISTORY: Noncontributory. SOCIAL HISTORY: Patient has a 11-[id number] history. He quit 15 years ago. He admits to drinking socially. Denies any drug use. REVIEW OF SYSTEMS: The patient denies any fever or chills. Appetite decreased. Night sweats, vision changes, nasal congestion, rhinorrhea, sore throat, cough, congestion, shortness of breath, exercise intolerance, chest pain , palpitations, edema, nausea, vomiting, diarrhea, constipation, urinary or fecal incontinence, rashes, lesions, jaundice syncope, anxiety or depression. The patient does endorse some fatigue, low back pain and , weakness and numbness and tingling on the left lower extremity. PHYSICAL EXAMINATION: VITAL SIGNS: Blood pressure 115/58, pulse 93, respiratory rate 18, T-max 99.1, pulse ox 100% on room air, current weight 77.11 kilograms. GENERAL: Patient is alert and oriented x3, no acute distress, well-developed, well-nourished, and appropriately interactive. EYES: Extraocular muscles intact. Conjunctiva within normal limits. ENT: Nasal mucosa within normal limits. NECK: Supple. CARDIOVASCULAR: Irregularly irregular rhythm, but no murmurs, no gallops. Radial and pedal pulses 2+. RESPIRATORY: Normal effort, no retractions, clear to auscultation bilaterally. SKIN: Warm and dry. No cyanosis. No lesions. ABDOMEN: Soft, nontender to palpation. Bowel sounds positive in all 4 quadrants. No masses or distention. EXTREMITIES: No clubbing, cyanosis or edema. MUSCULOSKELETAL: Structure within normal limits. Muscle strength 5/5 in upper extremities and 4/5 in the lower extremities secondary to back pain. Patient does have tenderness to palpation along the lower thoracic spine and the lumbar spine. NEUROLOGIC: No focal deficits. GCS 15. PSYCHIATRIC: Appropriate. LABORATORY DATA: 1. CBC reveals white blood cell count 1.4, hemoglobin 8.1, hematocrit 26.1, and platelets of 19. 2. CMP: Sodium 140, potassium 4.0, chloride 96, bicarbonate 31, BUN 71, creatinine 5.42, blood glucose 117, calcium 8.5, protein 8.4, albumin 3.5, alkaline phosphatase 114, AST 22, ALT 16, total bilirubin 0.6. 3. Magnesium 2.3. 4. CK 85. 5. CT lumbar spine shows extensive postsurgical changes in the lumbar spine without acute osseous abnormality. There are multiple sclerotic lesions in the bones indicating osseous metastasis. ASSESSMENT AND PLAN: This is an 82-year-old -[place] male with past medical history of metastatic prostate cancer that presents with weakness. 1. 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 The patient was admitted to telemetry as inpatient. Patient' s rn clinical review, Dr. Zaidi was consulted. He has plans to do hemodialysis and transfuse platelets in conjunction with the dialysis session. We will repeat a CBC in the a.m. to evaluate for changes in platelet function. 2. Severe neutropenia secondary to bone marrow failure from metastatic prostate cancer. Again, Dr. Zaidi was consulted. We will consult Oncology in the morning. We will consider Neupogen at this time, but we will get the recommendations from Oncology before administering this medication. The patient's white blood cell count was 1.4, which is the lowest it has been. 3. Normocytic anemia. This is again likely secondary to infiltrated bone marrow from the metastatic prostate cancer. Patient has frequent transfusions. His last transfusion was on the of this month at which time he received 2 units of packed red blood cells during dialysis. His hemoglobin is 8.1 and stable at this time. 4. Left lower extremity neuropathy. CT of the lumbar spine showed the sclerotic lesions in the bones, which is consistent with osseous metastasis and he does have some lumbar spine changes. Again, this is all likely secondary to the cancer. Steroids were given in the emergency department for symptomatic relief. The patient has no symptoms of cauda equina at this time to include loss of bowel function, perineal paresthesias or urinary incontinence. 5. End-stage renal disease on hemodialysis Sunday, , and Sunday. The patient has not missed a session. Dr. Zaidi was consulted in the emergency department. He will transfuse platelets during dialysis. We appreciate Dr. Zaidi's recommendations. 6. Metastatic prostate cancer. The patient sees Dr. Quinteros, his oncologist. He used to do radiation, but has not in a while. He plans on restarting this in the near future. We will do p.r.n. pain medications for the patient. 7. Hypertension. We will continue his home medications. 8. Gastroesophageal reflux disease. Continue home medications. 9. Gastrointestinal prophylaxis, Protonix. 10. Deep venous thrombosis prophylaxis, sequential compression devices. The patient has contraindication to Lovenox therapy at this time as he has had recent GI bleed and his platelets are below 100. DISPOSITION AND LENGTH OF HOSPITAL STAY: Two days. Symptomatic medication will be provided. History and physical exam as well as management discussed with Dr. Lin. HUSAM
[2017-09-14 05:35] LABS: Anion Gap 14 mmol/L (10-20); BUN (Urea Nitrogen) 34 mg/dL (8.4-25.7); Calc. Creatinine Clearance 19 mL/min (70-130); Calcium 8.7 mg/dL (7.8-10.44); Carbon Dioxide 28 mmol/L (23-31); Chloride 99 mmol/L (98-107); Estimated GFR-MDRD 23; Glucose 114 mg/dL (83-110); Potassium 3.7 mmol/L (3.5-5.1); Sodium 137 mmol/L (136-145)
[2017-09-14 06:27] LABS: Band 6 % (5-11); Hemoglobin 7.2 g/dL (14.0-18.0); Lymphocytes 50 % (21-51); MDiff Complete? YES; Mean Corpuscular HGB CONC 32.5 g/dL (32.0-36.0); Mean Corpuscular Hemoglobin 30.4 pg (27.0-31.0); Mean Corpuscular Volume 93.5 fl (80.0-94.0); Mean Platelet Volume 8.3 fL (7.4-10.4); Monocytes 17 % (0-10); Neutrophil 27 % (42-75); PLT Morphology Comment Appears Decreased; Platelet Count 63 thou/uL (130-400); RBC Distribution Width 13.2 % (11.5-14.5); Red Blood Cell (RBC) Count 2.35 mill/uL (4.70-6.10); White Blood Cell (WBC) Count 1.3 thou/uL (4.8-10.8)
--- NOTE | 2017-09-14 08:10 | PDOC.FM ---
- Subjective Subjective: Patient resting comfortably with no complaints this morning. He went for dialysis yesterday and received 1 unit of platelets as well. He is afebrile, with normal vital signs overnight. - Objective MAR Reviewed: Yes Vital Signs & Weight: Vital Signs (12 hours) Temp Pulse Resp BP BP Pulse Ox 09/14/17 07:15 98.1 F 75 18 109/75 100 09/14/17 03:23 97.2 F L 78 18 112/56 L 97 09/13/17 23:26 98.5 F 94 114/52 L 97 09/13/17 21:25 98.3 F 118 H 18 132/61 100 Weight Weight 73.482 kg Most Recent Monitor Data Heart Rate from ECG 93 NIBP 101/58 Respiration from ECG 16 I&O: 09/13/17 09/14/17 09/15/17 06:59 06:59 06:59 Intake Total 730 Output Total 150 Balance 580 Result Diagrams: 09/14/17 04:38 09/14/17 04:38 <Don Echols - Last Filed: 09/14/17 08:06> - Objective Vital Signs & Weight: Vital Signs (12 hours) Temp Pulse Resp BP Pulse Ox 09/14/17 07:15 98.1 F 75 18 109/75 100 09/14/17 03:23 97.2 F L 78 18 112/56 L 97 09/13/17 23:26 98.5 F 94 114/52 L 97 Weight Weight 73.482 kg Most Recent Monitor Data Heart Rate from ECG 93 NIBP 101/58 Respiration from ECG 16 I&O: 09/13/17 09/14/17 09/15/17 06:59 06:59 06:59 Intake Total 730 Output Total 150 Balance 580 Result Diagrams: 09/14/17 04:38 09/14/17 04:38 <Daljit Marroquin - Last Filed: 09/14/17 10:47> Phys Exam - Physical Examination Constitutional: NAD HEENT: moist MMs Respiratory: no wheezing, no rales Cardiovascular: RRR, no significant murmur Gastrointestinal: soft, non-tender TTP of paraspinous muscles in lumbar region Psychiatric: normal affect, A&O x 3 <Don Echols - Last Filed: 09/14/17 08:06> Dx/Plan (1) Pancytopenia Code(s): D61.818 - OTHER PANCYTOPENIA Status: Chronic Plan: Secondary to bone marrow failure from primary prostate cancer. Admitted with a plt count of 19. He is s/p 1u transfusion and is now at 63. Hg is stable at 7.2. He is asymptomatic currently. S/p 2u PRBC transfusion on WBC count of 1.3 (2) ESRD (end stage renal disease) on dialysis Code(s): N18.6 - END STAGE RENAL DISEASE; Z99.2 - DEPENDENCE ON RENAL DIALYSIS Status: Chronic Plan: Managed by Nephro Dialysis yesterday with transfusion of platelets Monitor BUN, Cr, and mental status (3) Prostate cancer metastatic to bone Code(s): C61 - MALIGNANT NEOPLASM OF PROSTATE; C79.51 - SECONDARY MALIGNANT NEOPLASM OF BONE Status: Chronic Plan: CT in ER shows osseous lesions in lumbar spine that are likely the etiology behind his new left lower extremity neuropathy. Follows up with oncologist regularly and was seen in office last week. (4) Hypertension, benign Code(s): I10 - ESSENTIAL (PRIMARY) HYPERTENSION Status: Chronic Plan: continue amlodipine, hydralazine, and metoprolol (5) History of CVA with residual deficit Code(s): I69.30 - UNSPECIFIED SEQUELAE OF CEREBRAL INFARCTION Status: Chronic - Plan Plan: Plan: -patient is stable and platelet count has improved. His metastatic prostate cancer is likely the cause behind this LLE weakness <Don Echols - Last Filed: 09/14/17 08:06> Attending Addendum - Attending Addendum I personally evaluated the patient and discussed the management with Dr. Echols. I agree with and repeated the History, Examination, Assessment and Plan documented above with any addition or exceptions noted below. Patient in great spirits this morning, wants to go home. Denies cp/sob/n/v/f/c. Exam unremarkable - no signs of thrombocytopenia. Likely plan for discharge today after discussing with and establishing good follow up with oncology. No s/s infection. ANC noted. <Daljit Marroquin - Last Filed: 09/14/17 10:47>
[2017-09-14] MEDS ORDERED: Amlodipine 5 MG TAB PO SCH (09:00)
[2017-09-14] MEDS ORDERED: Bicalutamide 50 MG TAB PO SCH (09:00)
[2017-09-14] MEDS ORDERED: hydrALAZINE 25 MG TAB PO SCH (09:00)
[2017-09-14] MEDS: Sodium Bicarbonate Tab 325 MG TAB PO SCH (09:59)
[2017-09-14] MEDS: Metoprolol Tartrate 50 MG TAB PO SCH (10:00)
[2017-09-14 12:45] VITALS: BP 107/52; TEMP 97.6
--- NOTE | 2017-09-21 03:40 | DIS-2 ---
DATE OF ADMISSION: 09/13/2017 DATE OF DISCHARGE: 09/14/2017 RESIDENT: Don Echols M.D. ADMITTING ATTENDING: Brandan Lin M.D. DISCHARGE ATTENDING: Daljit Marroquin M.D. CONSULTS: Nephrology. PROCEDURES: CT of the lumbar spine without contrast showing extensive post- surgical changes of the lumbar spine without acute osseous abnormalities. There are multiple sclerotic lesions in the bones consistent with osseous metastatic disease. PRIMARY DIAGNOSES: 1. Severe pancytopenia secondary to metastatic prostate cancer. 2. Prostate cancer with metastases. SECONDARY DIAGNOSES: 1. Atrial fibrillation. 2. Hypertension. 3. Gastroesophageal reflux disease. 4. End-stage renal disease on hemodialysis. 5. History of gastrointestinal bleed. DISCHARGE MEDICATIONS: 1. Metoprolol tartrate 50 mg p.o. b.i.d. 2. Doxazosin 2 mg p.o. at bedtime. 3. Gabapentin 300 mg p.o. at bedtime. 4. Casodex 50 mg p.o. daily. 5. Amlodipine 5 mg p.o. daily. 6. Sodium bicarbonate 650 mg tablet p.o. b.i.d. DISCONTINUED MEDICATIONS: Gore 5/325. HISTORY OF PRESENT ILLNESS AND HOSPITAL COURSE: An 82-year-old - [place] male with history of metastatic prostate cancer, recently coming into the ER with generalized weakness in the left lower extremity. The patient endorsed numbness and tingling on the presentation. The patient has been pancytopenic at that time he requires frequent transfusions. Bone marrow appears to be infiltrated and nonfunctioning. CT was done of the lumbar spine showing likely osseous metastasis responsible for his new onset radiculopathy. The patient was admitted, given 6-pack of platelets and monitored. Platelets increased from 19 to 63. His hemoglobin was 7.2 on day of discharge, not requiring transfusion. This was higher than the levels over the last several months. The patient has scheduled followup with Oncology after discharge. The patient was started on gabapentin for his left lower extremity neuropathy. DISPOSITION: Guarded. DISCHARGE INSTRUCTIONS: 1. Location: Home. 2. Diet: Heart healthy. 3. Activity: As tolerated. 4. Followup: Follow up with Oncology in 5 to 7 days. [facility]
== END 2017-09-14 14:33 | disposition home or self-care (01) | DRG 840 ==
LOC: ERS 10:50 → T4-B 15:08 → ERS 17:03 → ERHOLD 18:26 → 2NO 18:33
PROVIDERS: ADMIT Student in an Organized Health Care Education/Training Program; ATTEND Student in an Organized Health Care Education/Training Program
PROC: 5A1D70Z Performance of Urinary Filtration, Intermittent, Less than 6 Hours Per Day (ICD-10-PCS; principal; 2017-09-13)
PROC: 30233R1 Transfusion of Nonautologous Platelets into Peripheral Vein, Percutaneous Approach (ICD-10-PCS; 2017-09-13)
DX: D61.82 Myelophthisis (principal); N18.6 End stage renal disease; C79.51 Secondary malignant neoplasm of bone; I12.0 Hypertensive chronic kidney disease with stage 5 chronic kidney disease or end stage renal disease; G62.9 Polyneuropathy, unspecified; I48.91 Unspecified atrial fibrillation; K21.9 Gastro-esophageal reflux disease without esophagitis; C61 Malignant neoplasm of prostate; Z99.2 Dependence on renal dialysis; Z88.8 Allergy status to other drugs, medicaments and biological substances; Z79.899 Other long term (current) drug therapy
CPT/HCPCS: 36415; 36430; 72131; 80048; 80053; 82550; 83735; 85025; 86850; 86900; 86901; 90935; 93005; 93010; 96365; 96375; G0257; J1720; J2800; J7050; P9035

== ENCOUNTER 2017-09-28 13:05 | Emergency (ER) | payer MEDICARE ==
[2017-09-28 15:47] LABS: Hemoglobin 8.3 g/dL (14.0-18.0); Mean Corpuscular HGB CONC 33.1 g/dL (32.0-36.0); Mean Corpuscular Hemoglobin 30.5 pg (27.0-31.0); Mean Corpuscular Volume 92.1 fl (80.0-94.0); Platelet Count 10 thou/uL (130-400); RBC Distribution Width 12.7 % (11.5-14.5); Red Blood Cell (RBC) Count 2.73 mill/uL (4.70-6.10); White Blood Cell (WBC) Count 1.5 thou/uL (4.8-10.8)
[2017-09-28 16:00] LABS: ALT (SGPT) 11 U/L (8-55); AST (SGOT) 17 U/L (5-34); Albumin 3.4 g/dL (3.4-4.8); Alkaline Phosphatase 116 U/L (40-150); Anion Gap 15 mmol/L (10-20); BUN (Urea Nitrogen) 42 mg/dL (8.4-25.7); Bilirubin, Total 0.5 mg/dL (0.2-1.2); Calc. Creatinine Clearance 0 mL/min (70-130); Carbon Dioxide 31 mmol/L (23-31); Chloride 96 mmol/L (98-107); Estimated GFR-MDRD 15; Glucose 78 mg/dL (83-110); Potassium 3.1 mmol/L (3.5-5.1); Protein, Total 8.4 g/dL (5.8-8.1); Sodium 139 mmol/L (136-145)
[2017-09-28 16:19] LABS: Band 2 % (5-11); Eosinophils 2 % (0-10); Lymphocytes 60 % (21-51); MDiff Complete? YES; Monocytes 12 % (0-10); Neutrophil 20 % (42-75); PLT Morphology Comment Appears Decreased; Reactive Lymphocytes 4 % (0-10)
== END 2017-09-28 19:01 | disposition home or self-care (01) ==
LOC: ERS 13:05
DX: D69.6 Thrombocytopenia, unspecified (principal); C61 Malignant neoplasm of prostate; C79.51 Secondary malignant neoplasm of bone; K21.9 Gastro-esophageal reflux disease without esophagitis; I48.91 Unspecified atrial fibrillation; I12.9 Hypertensive chronic kidney disease with stage 1 through stage 4 chronic kidney disease, or unspecified chronic kidney disease; N18.9 Chronic kidney disease, unspecified; Z79.899 Other long term (current) drug therapy; Z99.2 Dependence on renal dialysis
CPT/HCPCS: 36430; 80053; 85025; 86850; 86900; 86901; 99284; P9035; 36415

== ENCOUNTER 2017-10-05 09:15 | Day surgery (SDC) | payer MEDICARE ==
[2017-10-05] MEDS ORDERED: Sodium Chloride 0.9% 20 ML ONE (10:04)
[2017-10-05 15:38] VITALS: BP 139/68; TEMP 98.5
== END 2017-10-05 15:38 | disposition home or self-care (01) ==
LOC: ONC/OP 09:15
PROVIDERS: ATTEND Internal Medicine Nephrology
PROC: 30233N1 Transfusion of Nonautologous Red Blood Cells into Peripheral Vein, Percutaneous Approach (ICD-10-PCS; principal; 2017-10-05)
DX: I12.0 Hypertensive chronic kidney disease with stage 5 chronic kidney disease or end stage renal disease (principal); N18.6 End stage renal disease; D63.1 Anemia in chronic kidney disease; I48.91 Unspecified atrial fibrillation; K21.9 Gastro-esophageal reflux disease without esophagitis; C61 Malignant neoplasm of prostate; Z88.8 Allergy status to other drugs, medicaments and biological substances; Z98.890 Other specified postprocedural states
CPT/HCPCS: 36415; 36430; 86850; 86900; 86901; A4216; P9016

== ENCOUNTER 2017-10-19 07:51 | Day surgery (SDC) | payer MEDICARE ==
[2017-10-19] MEDS ORDERED: Sodium Chloride 0.9% 30 ML ONE (08:06)
[2017-10-19 14:47] VITALS: BP 126/63; TEMP 98.8
== END 2017-10-19 14:42 | disposition home or self-care (01) ==
LOC: ONC/OP 07:51
PROVIDERS: ATTEND Internal Medicine Nephrology
PROC: 30233N1 Transfusion of Nonautologous Red Blood Cells into Peripheral Vein, Percutaneous Approach (ICD-10-PCS; principal; 2017-10-19)
DX: I12.0 Hypertensive chronic kidney disease with stage 5 chronic kidney disease or end stage renal disease (principal); N18.6 End stage renal disease; D63.1 Anemia in chronic kidney disease; C61 Malignant neoplasm of prostate; I48.91 Unspecified atrial fibrillation; K21.9 Gastro-esophageal reflux disease without esophagitis; Z88.8 Allergy status to other drugs, medicaments and biological substances; Z79.899 Other long term (current) drug therapy; Z90.49 Acquired absence of other specified parts of digestive tract; Z90.79 Acquired absence of other genital organ(s); Z98.890 Other specified postprocedural states; Z87.891 Personal history of nicotine dependence
CPT/HCPCS: 36415; 36430; 86850; 86900; 86901; A4216; P9016

== ENCOUNTER 2017-10-23 10:24 | Day surgery (SDC) | payer MEDICARE ==
[2017-10-23] MEDS ORDERED: Epoetin 40,000 UNITS/ML VIAL ONE (10:34)
== END 2017-10-23 12:29 | disposition home or self-care (01) ==
LOC: ONC/OP 10:24
PROVIDERS: ATTEND Internal Medicine Nephrology
DX: I12.0 Hypertensive chronic kidney disease with stage 5 chronic kidney disease or end stage renal disease (principal); N18.6 End stage renal disease; D63.1 Anemia in chronic kidney disease; C61 Malignant neoplasm of prostate; D61.818 Other pancytopenia; I48.91 Unspecified atrial fibrillation; K21.9 Gastro-esophageal reflux disease without esophagitis; Z88.8 Allergy status to other drugs, medicaments and biological substances; Z79.899 Other long term (current) drug therapy; Z90.79 Acquired absence of other genital organ(s); Z98.890 Other specified postprocedural states; Z87.891 Personal history of nicotine dependence
CPT/HCPCS: 96372; J0885

== ENCOUNTER 2017-11-01 10:13 | Day surgery (SDC) | payer MEDICARE ==
[2017-11-01] MEDS ORDERED: Sodium Chloride 0.9% 40 ML ONE (12:27)
[2017-11-01 17:11] VITALS: TEMP 98
[2017-11-01 18:04] VITALS: BP 133/60
== END 2017-11-01 18:04 | disposition home or self-care (01) ==
LOC: ONC/OP 10:13
PROVIDERS: ATTEND Internal Medicine Nephrology
PROC: 30233N1 Transfusion of Nonautologous Red Blood Cells into Peripheral Vein, Percutaneous Approach (ICD-10-PCS; principal; 2017-11-01)
DX: I12.0 Hypertensive chronic kidney disease with stage 5 chronic kidney disease or end stage renal disease (principal); N18.6 End stage renal disease; D63.1 Anemia in chronic kidney disease; I48.91 Unspecified atrial fibrillation; K21.9 Gastro-esophageal reflux disease without esophagitis; Z99.2 Dependence on renal dialysis; Z79.899 Other long term (current) drug therapy; Z88.8 Allergy status to other drugs, medicaments and biological substances
CPT/HCPCS: 36430; 86850; 86900; 86901; A4216; P9016

== ENCOUNTER 2017-11-06 10:05 | Day surgery (SDC) | payer MEDICARE ==
[2017-11-06] MEDS ORDERED: Epoetin 40,000 UNITS/ML VIAL ONE (10:29)
[2017-11-06] MEDS ORDERED: Epoetin 40,000 UNITS/ML VIAL SC SCH (11:15)
== END 2017-11-06 11:00 | disposition home or self-care (01) ==
LOC: ONC/OP 10:05
PROVIDERS: ATTEND Internal Medicine Nephrology
DX: I12.0 Hypertensive chronic kidney disease with stage 5 chronic kidney disease or end stage renal disease (principal); D63.1 Anemia in chronic kidney disease; N18.6 End stage renal disease; I48.91 Unspecified atrial fibrillation; C61 Malignant neoplasm of prostate; C79.51 Secondary malignant neoplasm of bone; D61.818 Other pancytopenia; I69.30 Unspecified sequelae of cerebral infarction; K21.9 Gastro-esophageal reflux disease without esophagitis; Z88.8 Allergy status to other drugs, medicaments and biological substances; Z79.899 Other long term (current) drug therapy; Z90.79 Acquired absence of other genital organ(s); Z98.890 Other specified postprocedural states
CPT/HCPCS: 96372; J0885

== ENCOUNTER 2017-11-13 07:41 | Inpatient (IN) | payer MEDICARE ==
[2017-11-13 08:32] LABS: Hemoglobin 5.9 g/dL (14.0-18.0); Mean Corpuscular Hemoglobin 30.3 pg (27.0-31.0); Mean Corpuscular Volume 91.7 fl (80.0-94.0); Mean Platelet Volume 14.2 fL (7.4-10.4); Platelet Count 9 thou/uL (130-400); RBC Distribution Width 12.9 % (11.5-14.5); Red Blood Cell (RBC) Count 1.95 mill/uL (4.70-6.10); White Blood Cell (WBC) Count 1.5 thou/uL (4.8-10.8)
[2017-11-13 08:41] LABS: ALT (SGPT) 16 U/L (8-55); AST (SGOT) 20 U/L (5-34); Albumin 3.1 g/dL (3.4-4.8); Alkaline Phosphatase 102 U/L (40-150); Anion Gap 15 mmol/L (10-20); BUN (Urea Nitrogen) 59 mg/dL (8.4-25.7); Bilirubin, Total 0.6 mg/dL (0.2-1.2); Calc. Creatinine Clearance 0 mL/min (70-130); Calcium 8.3 mg/dL (7.8-10.44); Carbon Dioxide 30 mmol/L (23-31); Chloride 96 mmol/L (98-107); Estimated GFR-MDRD 13; Globulin 4.5 g/dL (2.4-3.5); Glucose 115 mg/dL (83-110); Potassium 3.8 mmol/L (3.5-5.1); Protein, Total 7.6 g/dL (5.8-8.1); Sodium 137 mmol/L (136-145)
[2017-11-13 08:53] LABS: Band 10 % (5-11); Lymphocytes 39 % (21-51); MDiff Complete? YES; Monocytes 12 % (0-10); Neutrophil 39 % (42-75); PLT Morphology Comment Appears Decreased
[2017-11-13 09:15] LABS: INR-International Normal Ratio 1.3; Prothrombin Time 16.1 SEC (12.0-14.7)
[2017-11-13] MEDS ORDERED: HYDROcodone/Acetaminophen 5/325 mg Tablet PO PRN (10:46)
[2017-11-13] MEDS ORDERED: Chloraseptic Spray 180 ml Bottle PO PRN (10:46)
[2017-11-13] MEDS ORDERED: Loratadine 10 MG TAB PO PRN (10:46)
[2017-11-13] MEDS ORDERED: Diabetic Tussin 200 MG/10 ML UDCUP PO PRN (10:46)
[2017-11-13] MEDS ORDERED: Milk Of Magnesia 30 ML UDCUP PO PRN (10:46)
[2017-11-13] MEDS ORDERED: Ondansetron PF 4 MG/2 ML Vial IVP PRN (10:46)
[2017-11-13] MEDS ORDERED: Labetalol HCl 100 MG/20 ML VIAL SLOW IVP PRN (10:46)
[2017-11-13] MEDS ORDERED: Eucerin (Mineral Oil/Petrolatum,White) 30 gm Jar TOP PRN (10:46)
[2017-11-13] MEDS ORDERED: Acetaminophen 325 MG TAB PO PRN (10:46)
[2017-11-13] MEDS ORDERED: cloNIDine 0.1 MG TAB PO PRN (10:46)
[2017-11-13] MEDS ORDERED: Senokot 8.6 MG TAB PO PRN (10:46)
[2017-11-13] MEDS ORDERED: Ondansetron ODT 4 MG TAB PO PRN (10:46)
[2017-11-13] MEDS ORDERED: Zolpidem Tartrate 5 MG TAB PO PRN (10:46)
[2017-11-13] MEDS ORDERED: Loperamide HCl 2 MG CAP PO PRN (10:46)
[2017-11-13] MEDS ORDERED: Mag-Al 1200 mg/1200 mg/30 ML UDCUP PO PRN (10:46)
[2017-11-13] MEDS ORDERED: Sodium Chloride 0.65% Nasal 44 ML BOT EA NARE PRN (10:46)
[2017-11-13] MEDS ORDERED: Artificial Tears 18 DROP/0.9 ML EA EYE PRN (10:46)
--- NOTE | 2017-11-13 10:48 | RAD ---
TWO VIEWS CHEST: Comparison: 05-10-08 History: Weakness and abnormal laboratory values. Patient was sent from dialysis for fever and chills . FINDINGS: Single view of the chest shows a cardiomediastinal silhouette which is upper limits of normal in size . There is stable elevation of the left hemidiaphragm. There is questionable airspace opacity project ing over the left upper lobe. No pleural effusion is seen. IMPRESSION: Possible left upper lobe infiltrate. POS: [facility]
[2017-11-13] MEDS ORDERED: Digoxin 0.5 MG/2 ML AMP SLOW IVP SCH (11:00)
--- NOTE | 2017-11-13 11:16 | HP ---
PRIMARY CARE PHYSICIAN: Dr. Franz in [place]. REASON FOR ADMISSION: Symptomatic anemia, severe pancytopenia. HISTORY OF PRESENT ILLNESS: An 82-year-old -[place] male who has history of hypertension, end-stage renal disease on hemodialysis as well as metastatic prostate cancer who had dialysis today. Over there, he was having fever and chills. The patient was feeling weak for the last few days. The patient had routine blood test done at dialysis center, and his hemoglobin was very low and that is why he was told to go to emergency room for evaluation. In the emergency room, his blood pressure was 107/69. He was tachycardic with pulse of 110. He was afebrile. Patient does have subjective fever and chills since yesterday. He was feeling weak, fatigued, tired, dyspnea on exertion, dizziness. He denies any chest pain, abdominal pain or rash. He denies any hematochezia, melena or hematemesis. He denies taking any blood thinner medicine. He denies taking any NSAIDs. Patient reports that he had multiple blood transfusions in the past. The patient denies any UTI symptoms. He denies any constipation, diarrhea. He denies any cough or flu-like illness. Today in the emergency room, he had routine blood tests and he was found with WBC of 1.5, hemoglobin 5.9, and platelet 9. His chest x-ray was unremarkable. The patient is being admitted for symptomatic anemia as well as severe pancytopenia. ALLERGIES: No known drug allergy. CURRENT HOME MEDICATIONS: Metoprolol 50 mg p.o. twice daily, bicalutamide 50 mg p.o. daily, hydralazine 50 mg p.o. daily, sodium bicarbonate 650 mg p.o. daily, gabapentin 300 mg p.o. at bedtime. PAST MEDICAL HISTORY: Metastatic prostate cancer, gastroesophageal reflux disease, hypertension, end-stage renal disease on hemodialysis, paroxysmal atrial fibrillation. PAST SURGICAL HISTORY: Laparoscopic cholecystectomy, back surgery x3, hernia repair, dialysis shunt in left upper extremity. PAST PSYCHIATRIC HISTORY: Reviewed and negative. SOCIAL HISTORY: Patient is and lives at home with his . He is a former smoker. He currently denies any smoking. He denies any alcohol or other illicit drug abuse. FAMILY HISTORY: Positive for kidney failure, cancer among several family members. EMERGENCY ROOM COURSE: Reviewed. REVIEW OF SYSTEMS: The following complete review of systems was negative, unless otherwise mentioned in the HPI or below: Constitutional: Weight loss or gain, ability to conduct usual activities. Skin: Rash, itching. Eyes: Double vision, pain. ENT/Mouth: Nose bleeding, neck stiffness, pain, tenderness. Cardiovascular: Palpitations, dyspnea on exertion, orthopnea. Respiratory: Shortness of breath, wheezing, cough, hemoptysis, fever or night sweats. Gastrointestinal: Poor appetite, abdominal pain, heartburn, nausea, vomiting, constipation, or diarrhea. Genitourinary: Urgency, frequency, dysuria, nocturia. Musculoskeletal: Pain, swelling. Neurologic/Psychiatric: Anxiety, depression. Allergy/Immunologic: Skin rash, bleeding tendency. Please see my HPI for pertinent positive and negative. All other review of systems reviewed and negative except as mentioned in the HPI. PHYSICAL EXAMINATION: VITAL SIGNS: On arrival, blood pressure 107/69, pulse 110 irregular, respiratory rate 13, temperature 98.2, saturation 95% on room air, weight 76.2 kilograms. GENERAL: Patient currently appears alert, awake, weak. No obvious acute distress. HEAD: Normocephalic, atraumatic. EYES: Pupils round, reactive to light. Pale conjunctivae. No nystagmus. ENT: Pale mucous membrane. No oropharyngeal lesion. No exudate. No pharyngeal erythema. Moist mucous membranes. NECK: Supple, no JVD, no thyromegaly, no carotid bruit, no jugular venous distention. LUNGS: Clear to auscultation without any rhonchi or rales. CARDIAC: S1, S2 appears irregular. Soft systolic murmur noted. No gallop, no rub. ABDOMEN: Soft, bowel sounds present, nontender, nondistended. No organomegaly , no mass, no suprapubic tenderness. BACK: Unremarkable, no CVA tenderness. EXTREMITIES: Upper extremity, passive movement of all joints are normal. Dialysis site in left arm with palpable thrill. Lower extremity, no edema, good peripheral pulsation, no calf tenderness. SKIN: No skin rash. HEMATOLOGICAL: No lymphadenopathy. PSYCHIATRIC: Normal affect. NEUROLOGIC: The patient is moving all 4 limbs. Plantar bilateral flexor. Sensation intact. Motor 5/5. Reflexes symmetrical, no focal neurological deficit noted. SIGNIFICANT LABORATORY DATA AND IMAGING: EKG showing atrial fibrillation with rapid ventricular response, nonspecific ST-T changes. Chest x-ray based on my review, no acute cardiopulmonary process. CBC: WBC 1.1, hemoglobin 5.9, platelet 9, bandemia. INR 1.3. BMP shows sodium 137, potassium 3.8, chloride 96, carbon dioxide 30, anion gap 15, BUN 59, creatinine 5.11, glucose 115, calcium 8.3. Lactic acid 1.7. LFT: AST 20, ALT 16, alkaline phosphatase 102, albumin 3.1. ASSESSMENT AND PLAN: 1. Symptomatic anemia. At this point, the patient does have symptoms of anemia including fatigue, dyspnea on exertion and dizziness. The patient will need 2 units of blood transfusion. With dialysis, we will try to give him 2 units of blood transfusion. The patient already had dialysis today and that is why we want to give him at least 1 unit of blood transfusion today and tomorrow with the dialysis, we will consider giving him another unit of blood transfusion. We will watch for any fluid overload. We will also consult Hematology for their opinion. 2. Pancytopenia, likely related with bone marrow suppression from metastatic tumor involvement. We will consult Hematology for their opinion. We are transfusing platelets as well as blood transfusion during this admission for support. 3. End-stage renal disease, on hemodialysis. Patient is following Dr. Zaidi and that is why we will consult him for maintenance hemodialysis while in hospital. 4. Atrial fibrillation with rapid ventricular response. At this point, the patient's blood pressure runs low and that is why we will give him digoxin 0.125 mcg IV one time dose. If blood pressure permits, then we will resume metoprolol tartrate 50 mg twice daily. The patient is not a candidate for any chronic anticoagulation therapy, because of severe anemia from bone marrow suppression. 5. Metastatic prostate cancer. We will continue bicalutamide 50 mg p.o. daily. 6. History of hypertension, but currently low blood pressure and that is why we will hold on hydralazine therapy. If blood pressure permits, then we will resume hydralazine therapy. 7. Peripheral neuropathy. Based on the renal dose, we will continue gabapentin 300 mg p.o. at bedtime. 8. Deep venous thrombosis prophylaxis. Sequential compression device boots. No Lovenox because of low platelet count as well as severe anemia. 9. Gastrointestinal prophylaxis, Protonix 40 mg p.o. daily. 10. Gastroesophageal reflux disease. We will continue Protonix 40 mg p.o. daily while in hospital. 11. Severe thrombocytopenia: will transfuse 1 unit platelet today CODE STATUS: The patient is FULL CODE. The patient's is surrogate decision maker. DISPOSITION AND PLAN BASED ON CLINICAL COURSE: We are expecting patient's stay in hospital more than 2 midnights. Plan of care discussed with the patient in detail. [facility]TDD
[2017-11-13 16:02] VITALS: BMI 24.7
[2017-11-13] MEDS: Gabapentin 300 MG CAP PO SCH (20:30)
--- NOTE | 2017-11-13 22:34 | CON ---
DATE OF CONSULTATION: 11/13/2017 CONSULTING PHYSICIAN: Dejuan Johnson M.D. REQUESTING PHYSICIAN: Dr. Sellers. REASON FOR CONSULTATION: Need for maintenance hemodialysis. IMPRESSION: 1. End-stage renal disease, hemodialysis dependent, could not dialyze effectively today. 2. Severe symptomatic pancytopenia in the context of problem 3. 3. Metastatic prostatic carcinoma, status post radiotherapy. PLAN: 1. The patient to be transfused with some units of blood today and platelets and then plan on dialyz ing this patient tomorrow and receive more 2 units of blood during dialysis tomorrow. 2. Urinalysis, we will check for urine culture if indicated. 3. Further management will be dependent on the clinical course. HISTORY OF PRESENT ILLNESS: An 82-year-old gentleman with end-stage renal disease, hemodialysis depe sallynt, who has been dependent on blood transfusions for some time due to severe anemia in the context of prostatic carcinoma, metastatic, status post radiotherapy which I do believe has destroyed the pa carlisle's bone marrow. Patient presented with worsening weakness, fever, and inability to sleep last n ight. Hemoglobin was checked at dialysis, it came back 5 and platelet was 9000. Decision was then t zuleima to transfer this patient to ER for further management. Patient is now being admitted with the deanne banuelos complaints. PAST MEDICAL HISTORY: Significant for end-stage renal disease, hemodialysis dependent, hypertension, metastatic prostatic CA status post radiotherapy. MEDICATIONS: Reviewed and documented on Figment. ALLERGIES: No known drug allergy. FAMILY HISTORY: Not significantly related to presenting illness. SOCIAL HISTORY: The patient is . Denies alcohol, tobacco or illicit drug use. REVIEW OF SYSTEMS: As documented in the body of the history, reviewed with patient that is pretty si ck. All the other systems review were not found to be significantly related to presenting illness. PHYSICAL EXAMINATION: GENERAL: The patient was found to be ill-looking, not able to follow. VITAL SIGNS: Afebrile with temperature 98.8, pulse 84, respiratory rate of 18, O2 saturation 100% wi th blood pressure 123/71. HEENT: Unremarkable with moist oral mucosa. CARDIOVASCULAR SYSTEM: First and second heart sounds were heard. RESPIRATORY SYSTEM: Clear to auscultation. DIGESTIVE SYSTEM: Revealed a benign abdomen with positive bowel sounds. EXTREMITIES: No peripheral edema. SKIN: No new gross rash. LYMPHATICS: No peripheral lymphadenopathy. SUMMARY: An 82-year-old gentleman with end-stage renal disease, hemodialysis dependent, who presente d here with symptomatic pancytopenia.
[2017-11-14] MEDS ORDERED: Vancomycin HCl 1.5 GM in Sodium Chloride 0.9% 250 ML 300 ML IVPB SCH (00:45)
[2017-11-14] MEDS ORDERED: Vancomycin HCl 1.25 GM in Sodium Chloride 0.9% 250 ML 250 ML IVPB SCH (03:45)
[2017-11-14] MEDS ORDERED: HOLD VANCOMYCIN FOR LEVEL >20 FS SCH ×2 (03:45)
[2017-11-14] MEDS ORDERED: Vancomycin HCl 500 MG in Sodium Chloride 0.9% 100 ML IVPB SCH (03:45)
[2017-11-14] MEDS ORDERED: Vancomycin HCl 750 MG in Sodium Chloride 0.9% 250 ML 250 ML IVPB SCH (03:45)
[2017-11-14] MEDS ORDERED: Vancomycin HCl 1 GM in Premix Bag 1 BAG IVPB SCH (03:45)
[2017-11-14 06:30] LABS: ALT (SGPT) 13 U/L (8-55); AST (SGOT) 14 U/L (5-34); Albumin 2.9 g/dL (3.4-4.8); Alkaline Phosphatase 98 U/L (40-150); Anion Gap 14 mmol/L (10-20); BUN (Urea Nitrogen) 76 mg/dL (8.4-25.7); Bilirubin, Total 0.7 mg/dL (0.2-1.2); Calc. Creatinine Clearance 10 mL/min (70-130); Calcium 8.2 mg/dL (7.8-10.44); Carbon Dioxide 29 mmol/L (23-31); Chloride 100 mmol/L (98-107); Estimated GFR-MDRD 11; Globulin 3.9 g/dL (2.4-3.5); Glucose 99 mg/dL (83-110); Potassium 4.2 mmol/L (3.5-5.1); Protein, Total 6.8 g/dL (5.8-8.1); Sodium 139 mmol/L (136-145)
[2017-11-14 06:38] LABS: Band 2 % (5-11); Hemoglobin 7.3 g/dL (14.0-18.0); Lymphocytes 39 % (21-51); MDiff Complete? YES; Mean Corpuscular HGB CONC 33.6 g/dL (32.0-36.0); Mean Corpuscular Hemoglobin 30.4 pg (27.0-31.0); Mean Corpuscular Volume 90.4 fl (80.0-94.0); Mean Platelet Volume 7.9 fL (7.4-10.4); Monocytes 20 % (0-10); Neutrophil 38 % (42-75); PLT Morphology Comment Appears Decreased; Platelet Count 51 thou/uL (130-400); RBC Distribution Width 12.9 % (11.5-14.5); Reactive Lymphocytes 1 % (0-10); Red Blood Cell (RBC) Count 2.39 mill/uL (4.70-6.10); White Blood Cell (WBC) Count 1.5 thou/uL (4.8-10.8)
[2017-11-14] MEDS: cefTRIAXone\\ROCEPHIN 1 GM in Syringe 10 ML IVPB SCH (06:40)
[2017-11-14] MEDS ORDERED: Epoetin (ESRD) 20,000 UNITS/ML SC SCH (09:00)
[2017-11-14] MEDS ORDERED: Non-Formulary Item 1 EACH (Sodium Bicarbonate [Sodium Bicarbonate] 650 MG) PO SCH (09:00)
[2017-11-14] MEDS ORDERED: Non-Formulary Item 1 EACH (Cholecalciferol (Vitamin D3) [Vitamin D3] 2,000 UNIT) PO SCH (09:00)
[2017-11-14] MEDS: Sodium Bicarbonate Tab 325 MG TAB PO SCH ×2 (09:09→21:25)
[2017-11-14] MEDS: Calcium Acetate 667 MG CAP PO SCH ×3 (09:10→17:56)
[2017-11-14] MEDS: Folic Acid/Vit B Comp W-C PO SCH (09:10)
--- NOTE | 2017-11-14 09:44 | PDOC.PN ---
- Subjective Encounter Start Date: 11/14/17 Encounter Start Time: 06:45 -: old records requested/rev Patient seen and examined. No new complaints. No overnight events has cough - Objective Resuscitation Status: Resuscitation Status FULL:Full Resuscitation MAR Reviewed: Yes Vital Signs & Weight: Vital Signs (12 hours) Temp Pulse Resp BP Pulse Ox 11/14/17 04:00 98.1 F 85 16 104/59 L 100 I&O: 11/13/17 11/14/17 11/15/17 06:59 06:59 06:59 Intake Total 0 Output Total 150 Balance -150 Result Diagrams: 11/14/17 05:04 11/14/17 05:04 EKG Reviewed by me: Yes Phys Exam - Physical Examination Constitutional: NAD HEENT: PERRLA, moist MMs, sclera anicteric Neck: no JVD, supple Respiratory: no wheezing, no rales, no rhonchi Cardiovascular: RRR, no significant murmur, no rub Gastrointestinal: soft, non-tender, no distention, positive bowel sounds Musculoskeletal: no edema, pulses present Neurological: non-focal, normal sensation, moves all 4 limbs Lymphatic: no nodes Psychiatric: normal affect Skin: no rash, normal turgor Dx/Plan (1) Bacteremia due to Streptococcus Code(s): R78.81 - BACTEREMIA; B95.5 - UNSP STREPTOCOCCUS THE CAUSE OF DISEASES CLASSD ELSWHR Status: Acute (2) UTI (urinary tract infection) Status: Acute (3) Sepsis Code(s): A41.9 - SEPSIS, UNSPECIFIED ORGANISM Status: Acute (4) Streptococcal pneumonia Code(s): J15.4 - PNEUMONIA DUE TO OTHER STREPTOCOCCI Status: Acute (5) Symptomatic anemia Code(s): D64.9 - ANEMIA, UNSPECIFIED Status: Acute (6) Thrombocytopenia Code(s): D69.6 - THROMBOCYTOPENIA, UNSPECIFIED Status: Acute (7) ESRD (end stage renal disease) on dialysis Code(s): N18.6 - END STAGE RENAL DISEASE; Z99.2 - DEPENDENCE ON RENAL DIALYSIS Status: Chronic (8) GERD (gastroesophageal reflux disease) Code(s): K21.9 - GASTRO-ESOPHAGEAL REFLUX DISEASE WITHOUT ESOPHAGITIS Status: Chronic (9) Hypertension Code(s): I10 - ESSENTIAL (PRIMARY) HYPERTENSION Status: Chronic (10) Pancytopenia Code(s): D61.818 - OTHER PANCYTOPENIA Status: Chronic (11) Peripheral neuropathy Code(s): G62.9 - POLYNEUROPATHY, UNSPECIFIED Status: Chronic (12) Prostate cancer metastatic to bone Code(s): C61 - MALIGNANT NEOPLASM OF PROSTATE; C79.51 - SECONDARY MALIGNANT NEOPLASM OF BONE Status: Chronic - Plan cont current plan of care, plan discussed w/ family, continue antibiotics, PT/OT * continue vancomycin * add rocephin * repeat labs and culture tomorrow * medication reviewed as below * symptomatic treatment * HD as pe nephrology. * ID consult * Echo today * discussed with Review of Systems - Review of Systems Constitutional: weakness. negative: fever, chills, sweats, malaise, other ENT: negative: Ear Pain, Ear Discharge, Nose Pain, Nose Discharge, Nose Congestion, Mouth Pain, Mouth Swelling, Throat Pain, Throat Swelling, Other Respiratory: Cough. negative: Dry, Shortness of Breath, Hemoptysis, SOB with Excertion, Pleuritic Pain, Sputum, Wheezing Cardiovascular: negative: chest pain, palpitations, orthopnea, paroxysmal nocturnal dyspnea, edema, light headedness, other Gastrointestinal: negative: Nausea, Vomiting, Abdominal Pain, Diarrhea, Constipation, Melena, Hematochezia, Other Genitourinary: negative: Dysuria, Frequency, Incontinence, Hematuria, Retention , Other Musculoskeletal: negative: Neck Pain, Shoulder Pain, Arm Pain, Back Pain, Hand Pain, Leg Pain, Foot Pain, Other Skin: negative: Rash, Lesions, Tru, Bruising, Other - Medications/Allergies Allergies/Adverse Reactions: Allergies Allergy/AdvReac Type Severity Reaction Status Date / Time No Known Allergies Allergy Unverified 11/13/17 17:05 Medications: Current Medications Acetaminophen (Tylenol) 650 mg PO Q4H PRN PRN Reason: Headache/Fever or Pain Last Admin: 11/13/17 20:30 Dose: 650 mg Hydrocodone Bitart/Acetaminophen ([place] 5/325) 1 tab PO Q4H PRN PRN Reason: Moderate Pain (4-6) Al Hydroxide/Mg Hydroxide (Maalox) 30 ml PO Q6H PRN PRN Reason: Heartburn or Indigestion Artificial Tears (Tears Naturale) 0 drop EA EYE PRN PRN PRN Reason: Dry Eyes Bicalutamide (Casodex) 50 mg PO DAILY [facility] Calcium Acetate (Phoslo) 1,334 mg PO TID-[facility] Last Admin: 11/14/17 09:10 Dose: 1,334 mg Cholecalciferol (Vitamin D3) 2,000 units PO DAILY [facility] Last Admin: 11/14/17 09:09 Dose: 2,000 units Clonidine (Catapres) 0.1 mg PO Q4H PRN PRN Reason: Systolic BP > 180 Epoetin Emir (Procrit) 20,000 units [facility] Gabapentin (Neurontin) 300 mg PO [facility] Last Admin: 11/13/17 20:30 Dose: 300 mg Guaifenesin (Robitussin Sf) 200 mg PO Q4H PRN PRN Reason: Cough Vancomycin HCl 1.25 gm/ Sodium (Chloride) 250 mls @ 166.667 mls/hr IVPB WILLCALL SUSAN Vancomycin HCl 1 gm/ Device 200 mls @ 200 mls/hr IVPB WILLCALL [facility] Vancomycin HCl 750 mg/ Sodium (Chloride) 250 mls @ 250 mls/hr IVPB WILLCALL [facility] Vancomycin HCl 500 mg/ Sodium (Chloride) 100 mls @ 100 mls/hr IVPB WILLCALL [facility] Ceftriaxone Sodium 1 gm/ (Syringe) 10 mls @ 20 mls/hr IVPB Q24HR [facility] Last Admin: 11/14/17 06:40 Dose: 10 mls Labetalol HCl (Normodyne) 10 mg SLOW IVP Q4H PRN PRN Reason: Systolic BP > 180 Loperamide HCl (Imodium) 2 mg PO PRN PRN PRN Reason: Diarrhea/Loose Stools Loratadine (Claritin) 10 mg PO DAILYPRN PRN PRN Reason: Sinus Symptoms Magnesium Hydroxide (Milk Of Magnesium) 30 ml PO DAILYPRN PRN PRN Reason: Constipation Mineral Oil/White Petrolatum (Eucerin Cream) 0 gm TOP BIDPRN PRN PRN Reason: Dry Skin Miscellaneous Medication (Pharmacy To Dose) 0 each IVPB PRN PRN PRN Reason: POSSIBLE SEPSIS Hold Vancomycin For (Level >20) 0 each FS .RANDOM VANC [facility] Ondansetron HCl (Zofran Odt) 4 mg PO Q6H PRN PRN Reason: Nausea/Vomiting Ondansetron HCl (Zofran) 4 mg IVP Q6H PRN PRN Reason: Nausea/Vomiting Phenol (Chloraseptic Baker 180 Ml Bot) 0 ml PO PRN PRN PRN Reason: Sore Throat Senna (Senokot) 2 tab PO HSPRN PRN PRN Reason: Constipation Sodium Bicarbonate (Bicarbonate, Sodium) 650 mg PO BID [facility] Last Admin: 11/14/17 09:09 Dose: 650 mg Sodium Chloride (Real Nasal Baker 0.65%) 0 ml EA NARE QIDPRN PRN PRN Reason: Nasal Congestion Sodium Chloride (Flush - Normal Saline) 10 ml IVF Q12HR [facility] Sodium Chloride (Flush - Normal Saline) 10 ml IVF PRN PRN PRN Reason: Saline Flush Vitamin B Complex/Vit C/Folic Acid (Nephro-Lesly Tablet) 1 tab PO DAILY [facility] Last Admin: 11/14/17 09:10 Dose: 1 tab Zolpidem Tartrate (Ambien) 5 mg PO HSPRN PRN PRN Reason: Insomnia
--- NOTE | 2017-11-14 13:37 | PRG ---
DATE OF SERVICE: 11/14/2017 SUBJECTIVE: The patient is seen and examined. PHYSICAL EXAMINATION: VITAL SIGNS: Afebrile with temperature 98.6, pulse 99, respiratory rate of 20, O2 saturation 97%, bl ood pressure 109/63. GENERAL: The patient seems to be feeling much better. HEENT: Unremarkable. CARDIOVASCULAR: First and second heart sounds were heard. RESPIRATORY: Clear to auscultation. DIGESTIVE: Revealed a benign abdomen. EXTREMITIES: No peripheral edema. SKIN: No new gross rash. LYMPHATICS: No peripheral lymphadenopathy. LABORATORY INVESTIGATION: Showed hemoglobin 7.3, white count 1.5, platelets 51,000. Chemistry showe d a creatinine of 6.12, BUN of 76. IMPRESSION: 1. End-stage renal disease, hemodialysis dependent. 2. Pancytopenia, little improved, status post transfusions of platelets and red blood cells. 3. Fever, query cause. 4. Advanced age. PLAN: 1. We will hold off dialyzing this patient today and plan for dialysis tomorrow. This way, the vilma ent will be back on his normal Sunday, , and Sunday schedule. 2. We will transfuse this patient with 1 more unit during dialysis tomorrow. 3. Continue erythropoiesis stimulating agent.
[2017-11-14] MEDS: Bicalutamide 50 MG TAB PO SCH (13:51)
[2017-11-14] MEDS: Gabapentin 300 MG CAP PO SCH (21:25)
[2017-11-15] MEDS: cefTRIAXone\\ROCEPHIN 1 GM in Syringe 10 ML IVPB SCH (05:28)
[2017-11-15 06:14] LABS: Albumin 2.8 g/dL (3.4-4.8); Anion Gap 17 mmol/L (10-20); BUN (Urea Nitrogen) 89 mg/dL (8.4-25.7); BUN/Creatinine Ratio 13.01; Calc. Creatinine Clearance 9 mL/min (70-130); Calcium 8.1 mg/dL (7.8-10.44); Carbon Dioxide 28 mmol/L (23-31); Chloride 100 mmol/L (98-107); Estimated GFR-MDRD 9; Glucose 105 mg/dL (83-110); Potassium 4.5 mmol/L (3.5-5.1); Sodium 140 mmol/L (136-145)
[2017-11-15 06:18] LABS: Band 5 % (5-11); Hemoglobin 7.1 g/dL (14.0-18.0); Lymphocytes 57 % (21-51); MDiff Complete? YES; Mean Corpuscular HGB CONC 34.3 g/dL (32.0-36.0); Mean Corpuscular Hemoglobin 30.9 pg (27.0-31.0); Mean Corpuscular Volume 90.2 fl (80.0-94.0); Mean Platelet Volume 8.6 fL (7.4-10.4); Monocytes 5 % (0-10); Neutrophil 32 % (42-75); PLT Morphology Comment Appears Decreased; Platelet Count 40 thou/uL (130-400); RBC Distribution Width 12.9 % (11.5-14.5); Red Blood Cell (RBC) Count 2.28 mill/uL (4.70-6.10); White Blood Cell (WBC) Count 1.3 thou/uL (4.8-10.8)
[2017-11-15 06:44] LABS: HBSAg Index 0.22 S/CO (0-0.99); Hep B Surf Ag Non-Reactive S/CO (NonReactive)
[2017-11-15] MEDS: Calcium Acetate 667 MG CAP PO SCH ×3 (09:00→17:12)
--- NOTE | 2017-11-15 10:48 | CON ---
DATE OF CONSULTATION: 11/14/2017 REASON FOR CONSULTATION: Hypertension, end-stage renal disease and alpha hemolytic streptococcus axel teremia. HISTORY OF PRESENT ILLNESS: An 82-year-old gentleman who has a history of hypertension, end-stage re nal disease on hemodialysis through an AV fistula in the left upper extremity and metastatic prostate cancer, who developed fever and chills at dialysis on the day of admission, although he had been fee ling weak the prior days before admission. He was admitted to the emergency room from the dialysis c enter on arrival, he was tachycardic, but had no temperature elevation. Denies any headaches, no vis ual symptoms, sore throat, odynophagia, dysphagia, no back pain, no joint symptoms, no cough or sputu m production, no abdominal pain. Still has urinary output with some dysuria, no diarrhea or constipa tion. PAST MEDICAL HISTORY: Metastatic prostate cancer, undergoing treatment in [place], GERD, hypertensio n, end-stage renal disease on hemodialysis through an AV fistula in the left upper extremity, atrial fibrillation. PAST SURGICAL HISTORY: Laparoscopic cholecystectomy, back surgery x3, laminectomy, hernia repair and an AV fistula placement. SOCIAL HISTORY: , lives with . Former smoker. FAMILY HISTORY: Noncontributory. CURRENT MEDICATIONS: Include hydrocodone, Casodex, PhosLo, ceftriaxone, clonidine, guaifenesin, guy tadine, ondansetron, vancomycin. PHYSICAL EXAMINATION: VITAL SIGNS: T-max 99.8, currently 98.1, blood pressure 140/70, pulse 95, respirations 20, O2 sat 95 %. SKIN: Shows AV fistula in the left upper extremity which is functional. No inflammatory changes. N o Cornejo catheter. No lymphadenopathy, Alopecia. HEENT: Ocular movements conjugate. Sclerae white. Oral cavity with no abnormalities noted. NECK: Supple. LUNGS: Symmetric clear breath sounds. HEART: S1, S2, irregular rate. No obvious murmurs. ABDOMEN: Soft, not distended or tender. No ascites. No bladder distention. EXTREMITIES: No joint inflammatory activity noted. Pulses 1 plus dorsalis pedis. Plantar responses are flexure. Cap refill is normal. Moves all extremities equally. NEUROLOGIC: Cognitive function appears to be intact. LABORATORY DATA: White cell count is 1.5, hemoglobin 5.9, platelets 9000 and now 51,000 after platel et transfusion, 2% bands, 38% neutrophils. INR 1.3, sodium 137, creatinine 5.1, potassium 3.8, carbo n dioxide 30. Liver profile normal. Albumin 3.1, globulin 4.5. Random vancomycin 19. Microbiology : We have 2 sets from 11/13/2017 and one set from 11/14/2017 positive for likely alpha hemolytic str eptococcus yet to be fully identified susceptibility tested. IMAGING STUDIES: Include chest x-ray from yesterday with possible left upper lobe infiltrate. ASSESSMENT: 1. End-stage renal disease associated with hypertension. 2. Metastatic prostate cancer. 3. 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 4. Alpha hemolytic streptococcus bacteremia, which appears to have continuous nature, depending on t he identification of today's isolate. DISCUSSION: Differential diagnosis include endocarditis versus community-acquired pneumonia versus a n alternate site for example intra-abdominal inflammatory process, which is not apparent at this time . Bone and joint infection is not apparent either. The patient will need 2D echocardiogram, may nee d a transesophageal echocardiogram. Increase Rocephin 2 grams daily. Wait on full susceptibility an d identification of the organism. Depending on the identification he probably will need long-term ad ministration of antimicrobials, which can be done now at dialysis which will simplify the disposition . The nature of the regimen to be determined after full microbiology results are available. Further evaluation depending on the results of the culture and transthoracic echocardiogram.
--- NOTE | 2017-11-15 11:38 | PDOC.PN ---
- Subjective Encounter Start Date: 11/15/17 Encounter Start Time: 07:20 pt is doing overall well, i saw him in dialysis, no fever, no chills, Patient seen and examined. No new complaints. No overnight events - Objective Resuscitation Status: Resuscitation Status FULL:Full Resuscitation MAR Reviewed: Yes Vital Signs & Weight: Vital Signs (12 hours) Temp Pulse Pulse Resp BP BP Pulse Ox 11/15/17 11:15 98 F 81 18 120/66 11/15/17 11:00 98 F 84 18 144/64 H 11/15/17 10:49 98.0 F 96 18 142/74 H 11/15/17 10:30 98 F 82 18 129/63 11/15/17 10:15 98.2 F 79 18 11/15/17 10:02 98.2 F 91 18 121/62 11/15/17 08:00 98.2 F 103 H 18 128/68 95 11/15/17 04:00 98.7 F 92 12 124/71 97 11/15/17 00:00 98.4 F 74 13 126/61 98 Weight Weight 168 lb 12.8 oz Most Recent Monitor Data NIBP 122/54 I&O: 11/14/17 11/15/17 11/16/17 06:59 06:59 06:59 Intake Total 0 950 Output Total 150 450 Balance -150 -450 950 Result Diagrams: 11/15/17 05:43 11/15/17 05:43 EKG Reviewed by me: Yes (nsr) Phys Exam - Physical Examination Constitutional: NAD HEENT: PERRLA, moist MMs, sclera anicteric Neck: no JVD, supple Respiratory: no wheezing, no rales, no rhonchi Cardiovascular: RRR, no significant murmur, no rub Gastrointestinal: soft, non-tender, no distention, positive bowel sounds Musculoskeletal: no edema, pulses present Neurological: non-focal, normal sensation Lymphatic: no nodes Psychiatric: normal affect, A&O x 3 Skin: no rash, normal turgor Dx/Plan (1) Bacteremia due to Streptococcus Code(s): R78.81 - BACTEREMIA; B95.5 - UNSP STREPTOCOCCUS THE CAUSE OF DISEASES CLASSD ELSWHR Status: Acute Comment: alpha hemolytic streptococci (2) UTI (urinary tract infection) Status: Acute Comment: due to klebsiella (3) Sepsis Code(s): A41.9 - SEPSIS, UNSPECIFIED ORGANISM Status: Acute Qualifiers: Sepsis type: Streptococcus, unspecified Qualified Code(s): A40.9 - Streptococcal sepsis, unspecified; A40 - Streptococcal sepsis (4) Streptococcal pneumonia Code(s): J15.4 - PNEUMONIA DUE TO OTHER STREPTOCOCCI Status: Acute (5) Symptomatic anemia Code(s): D64.9 - ANEMIA, UNSPECIFIED Status: Acute Comment: 3 unit PRBC given (6) Thrombocytopenia Code(s): D69.6 - THROMBOCYTOPENIA, UNSPECIFIED Status: Acute Comment: 1 pack platelet given (7) ESRD (end stage renal disease) on dialysis Code(s): N18.6 - END STAGE RENAL DISEASE; Z99.2 - DEPENDENCE ON RENAL DIALYSIS Status: Chronic (8) GERD (gastroesophageal reflux disease) Code(s): K21.9 - GASTRO-ESOPHAGEAL REFLUX DISEASE WITHOUT ESOPHAGITIS Status: Chronic (9) Hypertension Code(s): I10 - ESSENTIAL (PRIMARY) HYPERTENSION Status: Chronic (10) Pancytopenia Code(s): D61.818 - OTHER PANCYTOPENIA Status: Chronic (11) Peripheral neuropathy Code(s): G62.9 - POLYNEUROPATHY, UNSPECIFIED Status: Chronic (12) Prostate cancer metastatic to bone Code(s): C61 - MALIGNANT NEOPLASM OF PROSTATE; C79.51 - SECONDARY MALIGNANT NEOPLASM OF BONE Status: Chronic - Plan cont current plan of care, continue antibiotics * DC tele * transfer to medical * continue HD as per nephrology * today 2 unit PRBC given with HD * continue rocephin * ID recommendation appreciated * today Echo * may need JOSHUA and residential antibiotics * medication reviewed as below * symptomatic treatment. Review of Systems - Review of Systems Constitutional: negative: fever, chills, sweats, weakness, malaise, other ENT: negative: Ear Pain, Ear Discharge, Nose Pain, Nose Discharge, Nose Congestion, Mouth Pain, Mouth Swelling, Throat Pain, Throat Swelling, Other Respiratory: negative: Cough, Dry, Shortness of Breath, Hemoptysis, SOB with Excertion, Pleuritic Pain, Sputum, Wheezing Cardiovascular: negative: chest pain, palpitations, orthopnea, paroxysmal nocturnal dyspnea, edema, light headedness, other Gastrointestinal: negative: Nausea, Vomiting, Abdominal Pain, Diarrhea, Constipation, Melena, Hematochezia, Other Genitourinary: negative: Dysuria, Frequency, Incontinence, Hematuria, Retention , Other Musculoskeletal: negative: Neck Pain, Shoulder Pain, Arm Pain, Back Pain, Hand Pain, Leg Pain, Foot Pain, Other Skin: negative: Rash, Lesions, Tru, Bruising, Other - Medications/Allergies Allergies/Adverse Reactions: Allergies Allergy/AdvReac Type Severity Reaction Status Date / Time No Known Allergies Allergy Unverified 11/13/17 17:05 Medications: Current Medications Acetaminophen (Tylenol) 650 mg PO Q4H PRN PRN Reason: Headache/Fever or Pain Last Admin: 11/13/17 20:30 Dose: 650 mg Hydrocodone Bitart/Acetaminophen ([place] 5/325) 1 tab PO Q4H PRN PRN Reason: Moderate Pain (4-6) Al Hydroxide/Mg Hydroxide (Maalox) 30 ml PO Q6H PRN PRN Reason: Heartburn or Indigestion Artificial Tears (Tears Naturale) 0 drop EA EYE PRN PRN PRN Reason: Dry Eyes Bicalutamide (Casodex) 50 mg PO DAILY [facility] Last Admin: 11/14/17 13:51 Dose: 50 mg Calcium Acetate (Phoslo) 1,334 mg PO TID-[facility] Last Admin: 11/15/17 09:00 Dose: Not Given Cholecalciferol (Vitamin D3) 2,000 units PO DAILY [facility] Last Admin: 11/14/17 09:09 Dose: 2,000 units Clonidine (Catapres) 0.1 mg PO Q4H PRN PRN Reason: Systolic BP > 180 Epoetin Emir (Procrit) 20,000 units [facility] Gabapentin (Neurontin) 300 mg PO [facility] Last Admin: 11/14/17 21:25 Dose: 300 mg Guaifenesin (Robitussin Sf) 200 mg PO Q4H PRN PRN Reason: Cough Vancomycin HCl 1.25 gm/ Sodium (Chloride) 250 mls @ 166.667 mls/hr IVPB [facility]CALL [facility] Vancomycin HCl 1 gm/ Device 200 mls @ 200 mls/hr IVPB [facility] Vancomycin HCl 750 mg/ Sodium (Chloride) 250 mls @ 250 mls/hr IVPB [facility] Vancomycin HCl 500 mg/ Sodium (Chloride) 100 mls @ 100 mls/hr IVPB [facility] Last Admin: 11/15/17 11:27 Dose: 100 mls Ceftriaxone Sodium 1 gm/ (Syringe) 10 mls @ 20 mls/hr IVPB Q24HR [facility] Last Admin: 11/15/17 05:28 Dose: 10 mls Labetalol HCl (Normodyne) 10 mg SLOW IVP Q4H PRN PRN Reason: Systolic BP > 180 Loperamide HCl (Imodium) 2 mg PO PRN PRN PRN Reason: Diarrhea/Loose Stools Loratadine (Claritin) 10 mg PO DAILYPRN PRN PRN Reason: Sinus Symptoms Magnesium Hydroxide (Milk Of Magnesium) 30 ml PO DAILYPRN PRN PRN Reason: Constipation Mineral Oil/White Petrolatum (Eucerin Cream) 0 gm TOP BIDPRN PRN PRN Reason: Dry Skin Miscellaneous Medication (Pharmacy To Dose) 0 each IVPB PRN PRN PRN Reason: POSSIBLE SEPSIS Hold Vancomycin For (Level >20) 0 each FS .[place] VANC [facility] Ondansetron HCl (Zofran Odt) 4 mg PO Q6H PRN PRN Reason: Nausea/Vomiting Ondansetron HCl (Zofran) 4 mg IVP Q6H PRN PRN Reason: Nausea/Vomiting Phenol (Chloraseptic [place] 180 Ml Bot) 0 ml PO PRN PRN PRN Reason: Sore Throat Senna (Senokot) 2 tab PO HSPRN PRN PRN Reason: Constipation Sodium Bicarbonate (Bicarbonate, Sodium) 650 mg PO BID [facility] Last Admin: 11/14/17 21:25 Dose: 650 mg Sodium Chloride ([place] Nasal [place] 0.65%) 0 ml EA NARE QIDPRN PRN PRN Reason: Nasal Congestion Sodium Chloride (Flush - Normal Saline) 10 ml IVF Q12HR [facility] Last Admin: 11/14/17 21:25 Dose: 10 ml Sodium Chloride (Flush - Normal Saline) 10 ml IVF PRN PRN PRN Reason: Saline Flush Vitamin B Complex/Vit C/Folic Acid (Nephro-Lesly Tablet) 1 tab PO DAILY [facility] Last Admin: 11/14/17 09:10 Dose: 1 tab Zolpidem Tartrate (Ambien) 5 mg PO HSPRN PRN PRN Reason: Insomnia
[2017-11-15] MEDS: Folic Acid/Vit B Comp W-C PO SCH (12:38)
[2017-11-15] MEDS: Sodium Bicarbonate Tab 325 MG TAB PO SCH ×2 (12:38→20:16)
[2017-11-15] MEDS: Bicalutamide 50 MG TAB PO SCH (12:48)
[2017-11-15] MEDS: Epoetin (ESRD) 20,000 UNITS/ML SC SCH (18:20)
[2017-11-15] MEDS: Cipro 250 MG TAB PO SCH (20:16)
[2017-11-15] MEDS: Gabapentin 300 MG CAP PO SCH (20:17)
[2017-11-16] MEDS: cefTRIAXone\\ROCEPHIN 1 GM in Syringe 10 ML IVPB SCH (05:46)
[2017-11-16] MEDS: Cipro 250 MG TAB PO SCH ×2 (05:47→20:37)
[2017-11-16] MEDS: Sodium Bicarbonate Tab 325 MG TAB PO SCH ×2 (08:56→20:37)
[2017-11-16] MEDS: Calcium Acetate 667 MG CAP PO SCH ×3 (08:56→16:21)
[2017-11-16] MEDS: Folic Acid/Vit B Comp W-C PO SCH (08:56)
[2017-11-16] MEDS: Bicalutamide 50 MG TAB PO SCH (08:57)
--- NOTE | 2017-11-16 09:00 | PRG ---
DATE OF SERVICE: 11/15/2017 SUBJECTIVE: The patient seen and examined, feeling much better, noted with the following vital signs . PHYSICAL EXAMINATION: VITAL SIGNS: Afebrile with temperature 98.4, pulse 101, respiratory rate 16, O2 sat of 94% with bloo d pressure 159/82. HEENT EXAMINATION: Unremarkable with moist oral mucosa. NECK: Supple, no conjunctival injection or icterus. CARDIOVASCULAR SYSTEM: First and second heart sounds were heard. RESPIRATORY SYSTEM: Clear to auscultation. DIGESTIVE SYSTEM: Revealed a benign abdomen with positive bowel sounds. EXTREMITIES: No peripheral edema. SKIN EXAMINATION: No new gross rash. LYMPHATICS: No peripheral lymphadenopathy. LABORATORY INVESTIGATION: Showed hemoglobin of 7.1 with a white count of 1.3 and platelets 40,000. Chemistry showed a creatinine of 6.84, BUN of 89. IMPRESSION: 1. End-stage renal disease, hemodialysis dependent. 2. Sepsis. 3. Pancytopenia in the context of advanced metastatic prostate carcinoma. 4. Advanced metastatic prostate carcinoma. PLAN: 1. Based on sensitivity, patient to be on ceftriaxone and Cipro double coverage. 2. Hemodialysis per schedule. 3. Transfuse 2 more units of blood today. 4. Further management to be dependent on the clinical course.
--- NOTE | 2017-11-16 11:15 | PDOC.PN ---
- Subjective Encounter Start Date: 11/16/17 Encounter Start Time: 07:45 Patient seen and examined. No new complaints. No overnight events - Objective Resuscitation Status: Resuscitation Status FULL:Full Resuscitation MAR Reviewed: Yes Vital Signs & Weight: Vital Signs (12 hours) Temp Pulse Resp BP Pulse Ox 11/16/17 08:00 98.5 F 104 H 12 11/16/17 07:45 98.5 F 104 H 12 121/63 99 11/16/17 04:31 98.4 F 102 H 19 112/69 97 11/15/17 23:56 98.4 F 98 19 128/55 L 98 Weight Weight 151 lb 6 oz Most Recent Monitor Data NIBP 122/54 I&O: 11/15/17 11/16/17 11/17/17 06:59 06:59 06:59 Intake Total 1580 Output Total 450 1800 Balance -450 -220 Result Diagrams: 11/15/17 05:43 11/15/17 05:43 Radiology Reviewed by me: Yes (echo- no vegetation) Phys Exam - Physical Examination Constitutional: NAD HEENT: PERRLA, moist MMs, sclera anicteric Neck: no JVD, supple Respiratory: no wheezing, no rales, no rhonchi Cardiovascular: RRR, no significant murmur, no rub Gastrointestinal: soft, non-tender, no distention, positive bowel sounds Musculoskeletal: no edema, pulses present Neurological: non-focal, normal sensation, moves all 4 limbs Lymphatic: no nodes Psychiatric: normal affect, A&O x 3 Skin: no rash, normal turgor Dx/Plan (1) Bacteremia due to Streptococcus Code(s): R78.81 - BACTEREMIA; B95.5 - UNSP STREPTOCOCCUS THE CAUSE OF DISEASES CLASSD ELSWHR Status: Acute Comment: alpha hemolytic streptococci (2) UTI (urinary tract infection) Status: Acute Comment: due to klebsiella (3) Sepsis Code(s): A41.9 - SEPSIS, UNSPECIFIED ORGANISM Status: Acute Qualifiers: Sepsis type: Streptococcus, unspecified Qualified Code(s): A40.9 - Streptococcal sepsis, unspecified; A40 - Streptococcal sepsis (4) Streptococcal pneumonia Code(s): J15.4 - PNEUMONIA DUE TO OTHER STREPTOCOCCI Status: Acute (5) Symptomatic anemia Code(s): D64.9 - ANEMIA, UNSPECIFIED Status: Acute Comment: 3 unit PRBC given (6) Thrombocytopenia Code(s): D69.6 - THROMBOCYTOPENIA, UNSPECIFIED Status: Acute Comment: 1 pack platelet given (7) ESRD (end stage renal disease) on dialysis Code(s): N18.6 - END STAGE RENAL DISEASE; Z99.2 - DEPENDENCE ON RENAL DIALYSIS Status: Chronic (8) GERD (gastroesophageal reflux disease) Code(s): K21.9 - GASTRO-ESOPHAGEAL REFLUX DISEASE WITHOUT ESOPHAGITIS Status: Chronic (9) Hypertension Code(s): I10 - ESSENTIAL (PRIMARY) HYPERTENSION Status: Chronic (10) Pancytopenia Code(s): D61.818 - OTHER PANCYTOPENIA Status: Chronic (11) Peripheral neuropathy Code(s): G62.9 - POLYNEUROPATHY, UNSPECIFIED Status: Chronic (12) Prostate cancer metastatic to bone Code(s): C61 - MALIGNANT NEOPLASM OF PROSTATE; C79.51 - SECONDARY MALIGNANT NEOPLASM OF BONE Status: Chronic - Plan cont current plan of care, continue antibiotics * continue rocephin * medication reviewed as below * symptomatic treatment * repeat culture is negative * will ask dr macdonald if JOSHUA required or not, if he will need oral vs Iv antibiotics on discharge as well as how long he needs antibiotics treatment * HD as per nephrology. Review of Systems - Review of Systems Eyes: negative: Pain, Vision Change, Conjunctivae Inflammation, Eyelid Inflammation, Redness, Other ENT: negative: Ear Pain, Ear Discharge, Nose Pain, Nose Discharge, Nose Congestion, Mouth Pain, Mouth Swelling, Throat Pain, Throat Swelling, Other Respiratory: negative: Cough, Dry, Shortness of Breath, Hemoptysis, SOB with Excertion, Pleuritic Pain, Sputum, Wheezing Cardiovascular: negative: chest pain, palpitations, orthopnea, paroxysmal nocturnal dyspnea, edema, light headedness, other Gastrointestinal: negative: Nausea, Vomiting, Abdominal Pain, Diarrhea, Constipation, Melena, Hematochezia, Other Genitourinary: negative: Dysuria, Frequency, Incontinence, Hematuria, Retention , Other Musculoskeletal: negative: Neck Pain, Shoulder Pain, Arm Pain, Back Pain, Hand Pain, Leg Pain, Foot Pain, Other Skin: negative: Rash, Lesions, Tru, Bruising, Other - Medications/Allergies Allergies/Adverse Reactions: Allergies Allergy/AdvReac Type Severity Reaction Status Date / Time No Known Allergies Allergy Unverified 11/13/17 17:05 Medications: Current Medications Acetaminophen (Tylenol) 650 mg PO Q4H PRN PRN Reason: Headache/Fever or Pain Last Admin: 11/13/17 20:30 Dose: 650 mg Hydrocodone Bitart/Acetaminophen ([place] 5/325) 1 tab PO Q4H PRN PRN Reason: Moderate Pain (4-6) Al Hydroxide/Mg Hydroxide (Maalox) 30 ml PO Q6H PRN PRN Reason: Heartburn or Indigestion Artificial Tears (Tears Naturale) 0 drop EA EYE PRN PRN PRN Reason: Dry Eyes Bicalutamide (Casodex) 50 mg PO DAILY [facility] Last Admin: 11/16/17 08:57 Dose: 50 mg Calcium Acetate (Phoslo) 1,334 mg PO TID-[facility] Last Admin: 11/16/17 08:56 Dose: 1,334 mg Cholecalciferol (Vitamin D3) 2,000 units PO DAILY [facility] Last Admin: 11/16/17 08:56 Dose: 2,000 units Ciprofloxacin (Cipro) 250 mg PO BID@0600,2000 [facility] Last Admin: 11/16/17 05:47 Dose: 250 mg Clonidine (Catapres) 0.1 mg PO Q4H PRN PRN Reason: Systolic BP > 180 Epoetin Emir (Procrit) 20,000 units [facility] Last Admin: 11/15/17 18:20 Dose: 20,000 units Gabapentin (Neurontin) 300 mg PO [facility] Last Admin: 11/15/17 20:17 Dose: 300 mg Guaifenesin (Robitussin Sf) 200 mg PO Q4H PRN PRN Reason: Cough Ceftriaxone Sodium 1 gm/ (Syringe) 10 mls @ 20 mls/hr IVPB Q24HR [facility] Last Admin: 11/16/17 05:46 Dose: 10 mls Labetalol HCl (Normodyne) 10 mg SLOW IVP Q4H PRN PRN Reason: Systolic BP > 180 Loperamide HCl (Imodium) 2 mg PO PRN PRN PRN Reason: Diarrhea/Loose Stools Loratadine (Claritin) 10 mg PO DAILYPRN PRN PRN Reason: Sinus Symptoms Magnesium Hydroxide (Milk Of Magnesium) 30 ml PO DAILYPRN PRN PRN Reason: Constipation Mineral Oil/White Petrolatum (Eucerin Cream) 0 gm TOP BIDPRN PRN PRN Reason: Dry Skin Ondansetron HCl (Zofran Odt) 4 mg PO Q6H PRN PRN Reason: Nausea/Vomiting Ondansetron HCl (Zofran) 4 mg IVP Q6H PRN PRN Reason: Nausea/Vomiting Phenol (Chloraseptic [place] 180 Ml Bot) 0 ml PO PRN PRN PRN Reason: Sore Throat Senna (Senokot) 2 tab PO HSPRN PRN PRN Reason: Constipation Sodium Bicarbonate (Bicarbonate, Sodium) 650 mg PO BID [facility] Last Admin: 11/16/17 08:56 Dose: 650 mg Sodium Chloride ([place] Nasal [place] 0.65%) 0 ml EA NARE QIDPRN PRN PRN Reason: Nasal Congestion Sodium Chloride (Flush - Normal Saline) 10 ml IVF Q12HR [facility] Last Admin: 11/16/17 08:57 Dose: 10 ml Sodium Chloride (Flush - Normal Saline) 10 ml IVF PRN PRN PRN Reason: Saline Flush Vitamin B Complex/Vit C/Folic Acid (Nephro-Lesly Tablet) 1 tab PO DAILY [facility] Last Admin: 11/16/17 08:56 Dose: 1 tab Zolpidem Tartrate (Ambien) 5 mg PO HSPRN PRN PRN Reason: Insomnia
[2017-11-16] MEDS: Gabapentin 300 MG CAP PO SCH (20:37)
[2017-11-17 06:00] LABS: Hemoglobin 7.7 g/dL (14.0-18.0); Mean Corpuscular HGB CONC 34.2 g/dL (32.0-36.0); Mean Corpuscular Hemoglobin 30.9 pg (27.0-31.0); Mean Corpuscular Volume 90.3 fl (80.0-94.0); Mean Platelet Volume 10.3 fL (7.4-10.4); Platelet Count 18 thou/uL (130-400); Red Blood Cell (RBC) Count 2.48 mill/uL (4.70-6.10); White Blood Cell (WBC) Count 1.4 thou/uL (4.8-10.8)
[2017-11-17 06:13] LABS: ALT (SGPT) 9 U/L (8-55); AST (SGOT) 13 U/L (5-34); Albumin 2.7 g/dL (3.4-4.8); Alkaline Phosphatase 87 U/L (40-150); Anion Gap 12 mmol/L (10-20); BUN (Urea Nitrogen) 66 mg/dL (8.4-25.7); Bilirubin, Total 0.4 mg/dL (0.2-1.2); Calc. Creatinine Clearance 10 mL/min (70-130); Calcium 8.5 mg/dL (7.8-10.44); Carbon Dioxide 30 mmol/L (23-31); Chloride 101 mmol/L (98-107); Estimated GFR-MDRD 12; Globulin 3.7 g/dL (2.4-3.5); Glucose 102 mg/dL (83-110); Potassium 3.8 mmol/L (3.5-5.1); Protein, Total 6.4 g/dL (5.8-8.1); Sodium 139 mmol/L (136-145)
[2017-11-17 06:25] LABS: Eosinophils 2 % (0-10); Lymphocytes 58 % (21-51); MDiff Complete? YES; Monocytes 6 % (0-10); Neutrophil 32 % (42-75); PLT Morphology Comment Appears Decreased
[2017-11-17] MEDS: cefTRIAXone\\ROCEPHIN 1 GM in Syringe 10 ML IVPB SCH (06:51)
[2017-11-17] MEDS: Cipro 250 MG TAB PO SCH ×2 (06:52→21:21)
[2017-11-17] MEDS: Calcium Acetate 667 MG CAP PO SCH ×3 (08:13→16:56)
[2017-11-17] MEDS: Folic Acid/Vit B Comp W-C PO SCH (08:14)
[2017-11-17] MEDS: Sodium Bicarbonate Tab 325 MG TAB PO SCH ×2 (08:14→21:21)
[2017-11-17] MEDS: Bicalutamide 50 MG TAB PO SCH (08:14)
--- NOTE | 2017-11-17 10:21 | PDOC.PN ---
- Subjective Encounter Start Date: 11/17/17 Encounter Start Time: 08:00 Patient seen and examined. No new complaints. No overnight events - Objective Resuscitation Status: Resuscitation Status FULL:Full Resuscitation MAR Reviewed: Yes Vital Signs & Weight: Vital Signs (12 hours) Temp Pulse Resp BP BP Pulse Ox 11/17/17 08:00 98.1 F 102 H 16 11/17/17 07:31 98.1 F 102 H 16 133/73 95 11/17/17 04:04 98.3 F 87 12 119/53 L 98 11/17/17 00:18 98.5 F 93 12 131/64 98 Weight Weight 151 lb 6 oz Most Recent Monitor Data NIBP 122/54 I&O: 11/16/17 11/17/17 11/18/17 06:59 06:59 06:59 Intake Total 1580 Output Total 1800 400 Balance -220 -400 Result Diagrams: 11/17/17 05:20 11/17/17 05:20 Phys Exam - Physical Examination Constitutional: NAD HEENT: PERRLA, moist MMs, sclera anicteric Neck: no JVD, supple Respiratory: no wheezing, no rales, no rhonchi Cardiovascular: RRR, no significant murmur, no rub Gastrointestinal: soft, non-tender, no distention, positive bowel sounds Musculoskeletal: no edema, pulses present Neurological: non-focal, normal sensation Lymphatic: no nodes Psychiatric: normal affect, A&O x 3 Skin: no rash, normal turgor Dx/Plan (1) Bacteremia due to Streptococcus Code(s): R78.81 - BACTEREMIA; B95.5 - UNSP STREPTOCOCCUS THE CAUSE OF DISEASES CLASSD ELSWHR Status: Acute Comment: alpha hemolytic streptococci (2) UTI (urinary tract infection) Status: Acute Comment: due to klebsiella (3) Sepsis Code(s): A41.9 - SEPSIS, UNSPECIFIED ORGANISM Status: Acute Qualifiers: Sepsis type: Streptococcus, unspecified Qualified Code(s): A40.9 - Streptococcal sepsis, unspecified; A40 - Streptococcal sepsis (4) Streptococcal pneumonia Code(s): J15.4 - PNEUMONIA DUE TO OTHER STREPTOCOCCI Status: Acute (5) Symptomatic anemia Code(s): D64.9 - ANEMIA, UNSPECIFIED Status: Acute Comment: 3 unit PRBC given (6) Thrombocytopenia Code(s): D69.6 - THROMBOCYTOPENIA, UNSPECIFIED Status: Acute Comment: 1 pack platelet given (7) ESRD (end stage renal disease) on dialysis Code(s): N18.6 - END STAGE RENAL DISEASE; Z99.2 - DEPENDENCE ON RENAL DIALYSIS Status: Chronic (8) GERD (gastroesophageal reflux disease) Code(s): K21.9 - GASTRO-ESOPHAGEAL REFLUX DISEASE WITHOUT ESOPHAGITIS Status: Chronic (9) Hypertension Code(s): I10 - ESSENTIAL (PRIMARY) HYPERTENSION Status: Chronic (10) Pancytopenia Code(s): D61.818 - OTHER PANCYTOPENIA Status: Chronic (11) Peripheral neuropathy Code(s): G62.9 - POLYNEUROPATHY, UNSPECIFIED Status: Chronic (12) Prostate cancer metastatic to bone Code(s): C61 - MALIGNANT NEOPLASM OF PROSTATE; C79.51 - SECONDARY MALIGNANT NEOPLASM OF BONE Status: Chronic - Plan cont current plan of care, continue antibiotics * JOSHUA will defer to ID team * continue rocephin * final antibiotic will defer to ID team * continue HD as per nephrology * monitor labs * medication reviewed as below * symptomatic treatment. Review of Systems - Review of Systems Eyes: negative: Pain, Vision Change, Conjunctivae Inflammation, Eyelid Inflammation, Redness, Other ENT: negative: Ear Pain, Ear Discharge, Nose Pain, Nose Discharge, Nose Congestion, Mouth Pain, Mouth Swelling, Throat Pain, Throat Swelling, Other Respiratory: negative: Cough, Dry, Shortness of Breath, Hemoptysis, SOB with Excertion, Pleuritic Pain, Sputum, Wheezing Cardiovascular: negative: chest pain, palpitations, orthopnea, paroxysmal nocturnal dyspnea, edema, light headedness, other Gastrointestinal: negative: Nausea, Vomiting, Abdominal Pain, Diarrhea, Constipation, Melena, Hematochezia, Other Genitourinary: negative: Dysuria, Frequency, Incontinence, Hematuria, Retention , Other Musculoskeletal: negative: Neck Pain, Shoulder Pain, Arm Pain, Back Pain, Hand Pain, Leg Pain, Foot Pain, Other Skin: negative: Rash, Lesions, Tru, Bruising, Other - Medications/Allergies Allergies/Adverse Reactions: Allergies Allergy/AdvReac Type Severity Reaction Status Date / Time No Known Allergies Allergy Unverified 11/13/17 17:05 Medications: Current Medications Acetaminophen (Tylenol) 650 mg PO Q4H PRN PRN Reason: Headache/Fever or Pain Last Admin: 11/13/17 20:30 Dose: 650 mg Hydrocodone Bitart/Acetaminophen ([place] 5/325) 1 tab PO Q4H PRN PRN Reason: Moderate Pain (4-6) Al Hydroxide/Mg Hydroxide (Maalox) 30 ml PO Q6H PRN PRN Reason: Heartburn or Indigestion Artificial Tears (Tears Naturale) 0 drop EA EYE PRN PRN PRN Reason: Dry Eyes Bicalutamide (Casodex) 50 mg PO DAILY [facility] Last Admin: 11/17/17 08:14 Dose: Not Given Calcium Acetate (Phoslo) 1,334 mg PO TID-[facility] Last Admin: 11/17/17 08:13 Dose: Not Given Cholecalciferol (Vitamin D3) 2,000 units PO DAILY [facility] Last Admin: 11/17/17 08:14 Dose: Not Given Ciprofloxacin (Cipro) 250 mg PO BID@0600,2000 [facility] Last Admin: 11/17/17 06:52 Dose: 250 mg Clonidine (Catapres) 0.1 mg PO Q4H PRN PRN Reason: Systolic BP > 180 Epoetin Emir (Procrit) 20,000 units SC [facility] Last Admin: 11/15/17 18:20 Dose: 20,000 units Gabapentin (Neurontin) 300 mg PO [facility] Last Admin: 11/16/17 20:37 Dose: 300 mg Guaifenesin (Robitussin Sf) 200 mg PO Q4H PRN PRN Reason: Cough Ceftriaxone Sodium 1 gm/ (Syringe) 10 mls @ 20 mls/hr IVPB Q24HR [facility] Last Admin: 11/17/17 06:51 Dose: 10 mls Labetalol HCl (Normodyne) 10 mg SLOW IVP Q4H PRN PRN Reason: Systolic BP > 180 Loperamide HCl (Imodium) 2 mg PO PRN PRN PRN Reason: Diarrhea/Loose Stools Loratadine (Claritin) 10 mg PO DAILYPRN PRN PRN Reason: Sinus Symptoms Magnesium Hydroxide (Milk Of Magnesium) 30 ml PO DAILYPRN PRN PRN Reason: Constipation Mineral Oil/White Petrolatum (Eucerin Cream) 0 gm TOP BIDPRN PRN PRN Reason: Dry Skin Ondansetron HCl (Zofran Odt) 4 mg PO Q6H PRN PRN Reason: Nausea/Vomiting Ondansetron HCl (Zofran) 4 mg IVP Q6H PRN PRN Reason: Nausea/Vomiting Phenol (Chloraseptic [place] 180 Ml Bot) 0 ml PO PRN PRN PRN Reason: Sore Throat Senna (Senokot) 2 tab PO HSPRN PRN PRN Reason: Constipation Last Admin: 11/16/17 20:40 Dose: 2 tab Sodium Bicarbonate (Bicarbonate, Sodium) 650 mg PO BID [facility] Last Admin: 11/17/17 08:14 Dose: Not Given Sodium Chloride (Becker Nasal [place] 0.65%) 0 ml EA NARE QIDPRN PRN PRN Reason: Nasal Congestion Sodium Chloride (Flush - Normal Saline) 10 ml IVF Q12HR [facility] Last Admin: 11/17/17 08:14 Dose: Not Given Sodium Chloride (Flush - Normal Saline) 10 ml IVF PRN PRN PRN Reason: Saline Flush Vitamin B Complex/Vit C/Folic Acid (Nephro-Lesly Tablet) 1 tab PO DAILY [facility] Last Admin: 11/17/17 08:14 Dose: Not Given Zolpidem Tartrate (Ambien) 5 mg PO HSPRN PRN PRN Reason: Insomnia
[2017-11-17] MEDS: Epoetin (ESRD) 20,000 UNITS/ML SC SCH (16:56)
[2017-11-17] MEDS: Gabapentin 300 MG CAP PO SCH (21:21)
--- NOTE | 2017-11-17 21:34 | EKG ---
Test Reason : WEAKNESS Blood Pressure : / mmHG Vent. Rate : 111 BPM Atrial Rate : 156 BPM P-R Int : 000 ms QRS Dur : 082 ms QT Int : 358 ms P-R-T Axes : 000 013 173 degrees QTc Int : 486 ms Atrial fibrillation with rapid ventricular response Abnormal ECG Confirmed by CAROL CARRASCO M.D. ([id number]), editor newspaper YADIEL HOWARD ([id number]) on 11/17/2017 9:34:40 PM Referred By: Confirmed By:CAROL CARRASCO M.D.
[2017-11-18] MEDS: cefTRIAXone\\ROCEPHIN 1 GM in Syringe 10 ML IVPB SCH (05:49)
[2017-11-18] MEDS: Cipro 250 MG TAB PO SCH (05:49)
[2017-11-18 08:16] LABS: Band 11 % (5-11); Eosinophils 3 % (0-10); Hemoglobin 8.3 g/dL (14.0-18.0); Lymphocytes 53 % (21-51); MDiff Complete? YES; Mean Corpuscular HGB CONC 32.7 g/dL (32.0-36.0); Mean Corpuscular Hemoglobin 30.5 pg (27.0-31.0); Mean Corpuscular Volume 93.2 fl (80.0-94.0); Mean Platelet Volume 11.1 fL (7.4-10.4); Metamyelocyte 1 % (0-0); Monocytes 4 % (0-10); Neutrophil 26 % (42-75); PLT Morphology Comment Appears Decreased; Platelet Count 16 thou/uL (130-400); RBC Distribution Width 12.9 % (11.5-14.5); Red Blood Cell (RBC) Count 2.73 mill/uL (4.70-6.10); White Blood Cell (WBC) Count 1.6 thou/uL (4.8-10.8)
[2017-11-18] MEDS: Sodium Bicarbonate Tab 325 MG TAB PO SCH (08:19)
[2017-11-18] MEDS: Folic Acid/Vit B Comp W-C PO SCH (08:19)
[2017-11-18] MEDS: Calcium Acetate 667 MG CAP PO SCH (08:20)
[2017-11-18] MEDS ORDERED: Metoprolol Tartrate 50 MG TAB PO SCH (09:00)
[2017-11-18] MEDS: Bicalutamide 50 MG TAB PO SCH (09:21)
--- NOTE | 2017-11-18 09:36 | PDOC.PN ---
- Subjective Encounter Start Date: 11/18/17 Encounter Start Time: 07:50 Patient seen and examined. No new complaints. No overnight events - Objective Resuscitation Status: Resuscitation Status FULL:Full Resuscitation MAR Reviewed: Yes Vital Signs & Weight: Vital Signs (12 hours) Temp Pulse Resp BP BP Pulse Ox 11/18/17 07:09 98.4 F 97 14 134/55 L 97 11/18/17 03:23 97.8 F 92 16 127/62 97 11/17/17 23:21 98.4 F 101 H 16 137/71 98 Weight Weight 151 lb 4 oz Most Recent Monitor Data NIBP 122/54 I&O: 11/17/17 11/18/17 11/19/17 06:59 06:59 06:59 Intake Total 480 Output Total 400 Balance -400 480 Result Diagrams: 11/18/17 07:28 11/17/17 05:20 Phys Exam - Physical Examination Constitutional: NAD HEENT: PERRLA, moist MMs, sclera anicteric Neck: no JVD, supple Respiratory: no wheezing, no rales, no rhonchi Cardiovascular: RRR, no significant murmur, no rub Gastrointestinal: soft, non-tender, no distention, positive bowel sounds Musculoskeletal: no edema, pulses present Neurological: non-focal, normal sensation Lymphatic: no nodes Psychiatric: normal affect, A&O x 3 Skin: no rash, normal turgor Dx/Plan (1) Bacteremia due to Streptococcus Code(s): R78.81 - BACTEREMIA; B95.5 - UNSP STREPTOCOCCUS THE CAUSE OF DISEASES CLASSD ELSWHR Status: Acute Comment: alpha hemolytic streptococci (2) UTI (urinary tract infection) Status: Acute Comment: due to klebsiella (3) Sepsis Code(s): A41.9 - SEPSIS, UNSPECIFIED ORGANISM Status: Acute Qualifiers: Sepsis type: Streptococcus, unspecified Qualified Code(s): A40.9 - Streptococcal sepsis, unspecified; A40 - Streptococcal sepsis (4) Streptococcal pneumonia Code(s): J15.4 - PNEUMONIA DUE TO OTHER STREPTOCOCCI Status: Acute (5) Symptomatic anemia Code(s): D64.9 - ANEMIA, UNSPECIFIED Status: Acute Comment: 3 unit PRBC given (6) Thrombocytopenia Code(s): D69.6 - THROMBOCYTOPENIA, UNSPECIFIED Status: Acute Comment: 1 pack platelet given (7) ESRD (end stage renal disease) on dialysis Code(s): N18.6 - END STAGE RENAL DISEASE; Z99.2 - DEPENDENCE ON RENAL DIALYSIS Status: Chronic (8) GERD (gastroesophageal reflux disease) Code(s): K21.9 - GASTRO-ESOPHAGEAL REFLUX DISEASE WITHOUT ESOPHAGITIS Status: Chronic (9) Hypertension Code(s): I10 - ESSENTIAL (PRIMARY) HYPERTENSION Status: Chronic (10) Pancytopenia Code(s): D61.818 - OTHER PANCYTOPENIA Status: Chronic (11) Peripheral neuropathy Code(s): G62.9 - POLYNEUROPATHY, UNSPECIFIED Status: Chronic (12) Prostate cancer metastatic to bone Code(s): C61 - MALIGNANT NEOPLASM OF PROSTATE; C79.51 - SECONDARY MALIGNANT NEOPLASM OF BONE Status: Chronic - Plan cont current plan of care, continue antibiotics * today give 1 pack of platelet * change to cipro for 7 days * continue vancomycin with HD * discussed with Dr macdonald * medication reviewed as below * symptomatic treatment * stable for discharge. Review of Systems - Review of Systems ENT: negative: Ear Pain, Ear Discharge, Nose Pain, Nose Discharge, Nose Congestion, Mouth Pain, Mouth Swelling, Throat Pain, Throat Swelling, Other Respiratory: negative: Cough, Dry, Shortness of Breath, Hemoptysis, SOB with Excertion, Pleuritic Pain, Sputum, Wheezing Cardiovascular: negative: chest pain, palpitations, orthopnea, paroxysmal nocturnal dyspnea, edema, light headedness, other Gastrointestinal: negative: Nausea, Vomiting, Abdominal Pain, Diarrhea, Constipation, Melena, Hematochezia, Other Genitourinary: negative: Dysuria, Frequency, Incontinence, Hematuria, Retention , Other Musculoskeletal: negative: Neck Pain, Shoulder Pain, Arm Pain, Back Pain, Hand Pain, Leg Pain, Foot Pain, Other Skin: negative: Rash, Lesions, Tru, Bruising, Other - Medications/Allergies Allergies/Adverse Reactions: Allergies Allergy/AdvReac Type Severity Reaction Status Date / Time No Known Allergies Allergy Unverified 11/13/17 17:05 Medications: Current Medications Acetaminophen (Tylenol) 650 mg PO Q4H PRN PRN Reason: Headache/Fever or Pain Last Admin: 11/13/17 20:30 Dose: 650 mg Hydrocodone Bitart/Acetaminophen ([place] 5/325) 1 tab PO Q4H PRN PRN Reason: Moderate Pain (4-6) Al Hydroxide/Mg Hydroxide (Maalox) 30 ml PO Q6H PRN PRN Reason: Heartburn or Indigestion Artificial Tears (Tears Naturale) 0 drop EA EYE PRN PRN PRN Reason: Dry Eyes Bicalutamide (Casodex) 50 mg PO DAILY [facility] Last Admin: 11/18/17 09:21 Dose: 50 mg Calcium Acetate (Phoslo) 1,334 mg PO TID-[facility] Last Admin: 11/18/17 08:20 Dose: 1,334 mg Cholecalciferol (Vitamin D3) 2,000 units PO DAILY [facility] Last Admin: 11/18/17 08:20 Dose: 2,000 units Ciprofloxacin (Cipro) 250 mg PO BID@0600,2000 [facility] Last Admin: 11/18/17 05:49 Dose: 250 mg Clonidine (Catapres) 0.1 mg PO Q4H PRN PRN Reason: Systolic BP > 180 Epoetin Emir (Procrit) 20,000 [facility] Last Admin: 11/17/17 16:56 Dose: 20,000 units Gabapentin (Neurontin) 300 mg PO [facility] Last Admin: 11/17/17 21:21 Dose: 300 mg Guaifenesin (Robitussin Sf) 200 mg PO Q4H PRN PRN Reason: Cough Ceftriaxone Sodium 1 gm/ (Syringe) 10 mls @ 20 mls/hr IVPB Q24HR [facility] Last Admin: 11/18/17 05:49 Dose: 10 mls Labetalol HCl (Normodyne) 10 mg SLOW IVP Q4H PRN PRN Reason: Systolic BP > 180 Loperamide HCl (Imodium) 2 mg PO PRN PRN PRN Reason: Diarrhea/Loose Stools Loratadine (Claritin) 10 mg PO DAILYPRN PRN PRN Reason: Sinus Symptoms Magnesium Hydroxide (Milk Of Magnesium) 30 ml PO DAILYPRN PRN PRN Reason: Constipation Metoprolol Tartrate (Lopressor) 50 mg PO BID [facility] Last Admin: 11/18/17 08:20 Dose: 50 mg Mineral Oil/White Petrolatum (Eucerin Cream) 0 gm TOP BIDPRN PRN PRN Reason: Dry Skin Ondansetron HCl (Zofran Odt) 4 mg PO Q6H PRN PRN Reason: Nausea/Vomiting Ondansetron HCl (Zofran) 4 mg IVP Q6H PRN PRN Reason: Nausea/Vomiting Phenol (Chloraseptic [place] 180 Ml Bot) 0 ml PO PRN PRN PRN Reason: Sore Throat Senna (Senokot) 2 tab PO HSPRN PRN PRN Reason: Constipation Last Admin: 11/16/17 20:40 Dose: 2 tab Sodium Bicarbonate (Bicarbonate, Sodium) 650 mg PO BID [facility] Last Admin: 11/18/17 08:19 Dose: 650 mg Sodium Chloride (Turner Nasal [place] 0.65%) 0 ml EA NARE QIDPRN PRN PRN Reason: Nasal Congestion Sodium Chloride (Flush - Normal Saline) 10 ml IVF Q12HR [facility] Last Admin: 11/18/17 08:20 Dose: 10 ml Sodium Chloride (Flush - Normal Saline) 10 ml IVF PRN PRN PRN Reason: Saline Flush Vitamin B Complex/Vit C/Folic Acid (Nephro-Lesly Tablet) 1 tab PO DAILY [facility] Last Admin: 11/18/17 08:19 Dose: 1 tab Zolpidem Tartrate (Ambien) 5 mg PO HSPRN PRN PRN Reason: Insomnia
--- NOTE | 2017-11-18 11:35 | DIS ---
PRIMARY CARE PHYSICIAN: Dr. Sly Franz. DATE OF ADMISSION: 11/13/2017 DATE OF DISCHARGE: 11/18/2017 DISCHARGE DISPOSITION: Home. PRIMARY DISCHARGE DIAGNOSES: 1. Bacteremia due to Streptococcus mutans. 2. Urinary tract infection due to Klebsiella and Proteus. 3. Symptomatic anemia, status post 4 unit transfusion. 4. Thrombocytopenia, status post platelet transfusion. 5. Sepsis with hypotension. SECONDARY DISCHARGE DIAGNOSES: 1. 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 2. Prostate cancer metastatic to bone. 3. Peripheral neuropathy. 4. Hypertension. 5. Gastroesophageal reflux disease. 6. End-stage renal disease, on hemodialysis. PRIMARY PROCEDURE/OPERATION: Maintenance hemodialysis while in hospital. RADIOLOGICAL INVESTIGATION: Chest x-ray normal. Echocardiography did not show any vegetation. SIGNIFICANT LABORATORY DATA: WBC 1.6, hemoglobin 8.3, platelets 16. INR 1.3, creatinine 5.58. Elec trolytes, LFT normal. Hepatitis B surface antigen negative. Blood culture positive for Streptococcu s mutans and subsequently repeat blood culture was negative. Urine culture grew Klebsiella and Prote us. DISCHARGE MEDICATIONS: The patient will get vancomycin as per sliding scale until 12/30/2017. The p atient will have Cipro 250 mg p.o. daily for 7 days. The patient will continue following medication: Amlodipine 5 mg p.o. daily, Casodex 50 mg p.o. daily, PhosLo 1334 mg p.o. t.i.d., Tums 1 tablet dacia ly, vitamin D3 of 2000 units p.o. daily, Cardura 2 mg p.o. at bedtime, Procrit 20,000 units subcu wit h dialysis, Neurontin 300 mg p.o. at bedtime, hydralazine 50 mg p.o. daily, and Lopressor 50 mg p.o. b.i.d. CONTRAINDICATIONS: None. CODE STATUS: FULL CODE. INPATIENT CONSULTANTS: Dr. Zaidi was following for maintenance hemodialysis. Dr. Temple was con sulted for bacteremia. TEST RESULTS PENDING ON DISCHARGE: None. ALLERGIES: No known drug allergy. DISCHARGE PLAN: Post hospital, the patient will follow up with primary care physician. He will cont inue his regular maintenance hemodialysis. The patient will follow up with Dr. Temple at end of treat ment. HOSPITAL COURSE: An 82-year-old male when he was getting dialysis, at that time he was having chills and her low blood pressure and rigors and that is why he was sent to Emergency Room. He had routine blood test done at the dialysis unit and he was found with a low hemoglobin. On admission, his hemo globin was 5.9 and platelet was 9. During this admission, the patient was given total of 4 units of PRBC and 2 packs of platelets. The patient was getting maintenance hemodialysis with Dr. Zaidi. His routine blood culture and urine culture grew bacteria. Blood culture was positive for Streptococcus mutans and urine culture w as positive for Klebsiella and Proteus. We suspected endocarditis and that is why we did transthorac ic echocardiography, which was pretty much unremarkable. The patient was getting vancomycin and Roce phin while in hospital. I spoke with Dr. Temple and he recommended that at this point, we will avoid transesophageal echocardiography and we will treat as if endocarditis with vancomycin as per sliding scale with the dialysis. For UTI, we also prescribing Cipro for another 7 days. The patient has significant clinical improvement. He remained afebrile. Initially, we have to hold blood pressure medicine, but on the discharge, we resumed his above-mentioned blood pressure medicati on. The patient is given instruction to avoid blood pressure medication if blood pressure is less th an 120/80. This patient is at high risk for recurrent admission given pancytopenia. We are consulting case jared beal to arrange IV antibiotic therapy with the dialysis. This patient is medically stable for dischar ge later on today. The patient is seen and examined at bedside today. Please see my progress note from today for furthe r details.
[2017-11-18 12:40] VITALS: TEMP 97.8
[2017-11-18 13:47] VITALS: BP 139/68
--- NOTE | 2017-11-19 09:05 | PRG ---
DATE OF SERVICE: 11/16/2017 SUBJECTIVE: The patient seen and examined with no new complaint noted with the following vital signs . PHYSICAL EXAMINATION: VITAL SIGNS: Afebrile with temperature 98.5, pulse 102, respiratory rate 12, blood pressure 121/63, O2 sat 99%. HEENT: Unremarkable with moist oral mucosa. No conjunctival injection or icterus. NECK: Supple. CARDIOVASCULAR: First and second heart sounds were heard. RESPIRATORY: Clear to auscultation. DIGESTIVE: Revealed a benign abdomen with positive bowel sounds. EXTREMITIES: No peripheral edema. SKIN: No new gross rash. LYMPHATICS: No peripheral lymphadenopathy. IMPRESSION: 1. End-stage renal disease, on hemodialysis. 2. Bacteremia, on treatment. 3. Urinary tract infection. 4. Pancytopenia. PLAN: 1. The patient to continue with dialysis as per his schedule. Therefore, patient will be due for di alysis tomorrow. 2. Continue antibiotics treatment.
--- NOTE | 2017-11-27 18:46 | PQF ---
SHAY SALDANA JR, SALIM NOORJIBHAI MD [id number] [facility] [id number] CLINICAL DOCUMENTATION CLARIFICATION FORM: POST DISCHARGE Addendum to original discharge summary date: _sepsis due to streptococcus Late entry note date: 11/30/17 DATE: 11/27/2017 ATTN: HONORIO BATISTA MD Please exercise your independent, professional judgment in responding to the clarification form. Clinical indicators are provided on the bottom of this form for your review Diagnosis: SEPSIS Present on Admission (POA): [ x ] Yes [ ] No [ ] Unable to determine Coding guidelines require hospitals to identify whether a diagnosis was present on admission (POA) or not. To accurately assign the appropriate POA indicator, this information must be clearly documented within the medical record. 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 All Rights Reserved Cale [email or web address] [phone] HUSAM
== END 2017-11-18 14:02 | disposition home or self-care (01) | DRG 840 ==
LOC: ERS 07:41 → ERHOLD 09:48 → 2NO 15:35 → SURG A 11-15 13:07
PROVIDERS: ADMIT Internal Medicine; ATTEND Internal Medicine
PROC: 5A1D70Z Performance of Urinary Filtration, Intermittent, Less than 6 Hours Per Day (ICD-10-PCS; 2017-11-15)
PROC: 5A1D70Z Performance of Urinary Filtration, Intermittent, Less than 6 Hours Per Day (ICD-10-PCS; 2017-11-17)
PROC: 30233N1 Transfusion of Nonautologous Red Blood Cells into Peripheral Vein, Percutaneous Approach (ICD-10-PCS; principal; 2017-11-18)
PROC: 30233R1 Transfusion of Nonautologous Platelets into Peripheral Vein, Percutaneous Approach (ICD-10-PCS; 2017-11-18)
DX: D61.82 Myelophthisis (principal); A40.9 Streptococcal sepsis, unspecified; J15.4 Pneumonia due to other streptococci; C79.51 Secondary malignant neoplasm of bone; D69.6 Thrombocytopenia, unspecified; N39.0 Urinary tract infection, site not specified; I12.0 Hypertensive chronic kidney disease with stage 5 chronic kidney disease or end stage renal disease; G62.9 Polyneuropathy, unspecified; I38 Endocarditis, valve unspecified; B96.4 Proteus (mirabilis) (morganii) as the cause of diseases classified elsewhere; N18.6 End stage renal disease; D64.9 Anemia, unspecified; B96.89 Other specified bacterial agents as the cause of diseases classified elsewhere; Z99.2 Dependence on renal dialysis; K21.9 Gastro-esophageal reflux disease without esophagitis; C61 Malignant neoplasm of prostate; Z87.891 Personal history of nicotine dependence; I95.9 Hypotension, unspecified
CPT/HCPCS: 36415; 36430; 71046; 80053; 80069; 80202; 83605; 85025; 85610; 86850; 86900; 86901; 87040; 87077; 87086; 87149; 87186; 87340; 90935; 93005; 93306; G0257; G8978-GP-CI; G8979-GP-CI; G8980-GP-CI; G8987-GO-CI; G8988-GO-CI; G8989-GO-CI; J0696; J3370; J7050; P9016; P9035; Q4081

== ENCOUNTER 2017-11-20 10:22 | Day surgery (SDC) | payer MEDICARE ==
[2017-11-20] MEDS ORDERED: Epoetin 40,000 UNITS/ML VIAL ONE (10:25)
[2017-11-20] MEDS ORDERED: Epoetin 40,000 UNITS/ML VIAL SC SCH (10:45)
== END 2017-11-20 10:42 | disposition home or self-care (01) ==
LOC: ONC/OP 10:22
PROVIDERS: ATTEND Internal Medicine Nephrology
DX: I12.0 Hypertensive chronic kidney disease with stage 5 chronic kidney disease or end stage renal disease (principal); N18.6 End stage renal disease; D63.1 Anemia in chronic kidney disease; D61.818 Other pancytopenia; G62.9 Polyneuropathy, unspecified; K21.9 Gastro-esophageal reflux disease without esophagitis; C61 Malignant neoplasm of prostate; C79.51 Secondary malignant neoplasm of bone; Z99.2 Dependence on renal dialysis; Z79.899 Other long term (current) drug therapy
CPT/HCPCS: 96372; J0885

== ENCOUNTER 2017-11-27 10:06 | Day surgery (SDC) | payer MEDICARE ==
[2017-11-27] MEDS ORDERED: Sodium Chloride 0.9% 20 ML ONE (10:35)
[2017-11-27 16:29] VITALS: BP 123/63; TEMP 97.9
== END 2017-11-27 17:00 | disposition home or self-care (01) ==
LOC: ONC/OP 10:06
PROVIDERS: ATTEND Internal Medicine Nephrology
PROC: 30233N1 Transfusion of Nonautologous Red Blood Cells into Peripheral Vein, Percutaneous Approach (ICD-10-PCS; principal; 2017-11-27)
DX: I12.0 Hypertensive chronic kidney disease with stage 5 chronic kidney disease or end stage renal disease (principal); N18.6 End stage renal disease; D63.1 Anemia in chronic kidney disease; Z99.2 Dependence on renal dialysis; Z79.899 Other long term (current) drug therapy
CPT/HCPCS: 36430; 86850; 86900; 86901; A4216; P9016

== ENCOUNTER 2017-12-04 10:45 | Day surgery (SDC) | payer MEDICARE ==
[2017-12-04] MEDS ORDERED: Epoetin 40,000 UNITS/ML VIAL SC SCH (11:15)
[2017-12-04 12:25] VITALS: BP 121/56; TEMP 97.8
== END 2017-12-04 12:26 | disposition home or self-care (01) ==
LOC: ONC/OP 10:45
PROVIDERS: ATTEND Internal Medicine Nephrology
DX: I12.0 Hypertensive chronic kidney disease with stage 5 chronic kidney disease or end stage renal disease (principal); N18.6 End stage renal disease; D63.1 Anemia in chronic kidney disease; Z87.891 Personal history of nicotine dependence; Z79.899 Other long term (current) drug therapy; Z99.2 Dependence on renal dialysis
CPT/HCPCS: 96372; J0885

== ENCOUNTER 2017-12-05 13:49 | Inpatient (IN) | payer MEDICARE ==
[2017-12-05 15:29] LABS: Hemoglobin 4.1 g/dL (14.0-18.0); Mean Corpuscular HGB CONC 33.2 g/dL (32.0-36.0); Mean Corpuscular Hemoglobin 30.6 pg (27.0-31.0); Mean Corpuscular Volume 92.1 fl (80.0-94.0); Platelet Count 8 thou/uL (130-400); RBC Distribution Width 12.6 % (11.5-14.5); Red Blood Cell (RBC) Count 1.34 mill/uL (4.70-6.10)
[2017-12-05 15:52] LABS: ALT (SGPT) 13 U/L (8-55); AST (SGOT) 17 U/L (5-34); Albumin 3.1 g/dL (3.4-4.8); Alkaline Phosphatase 117 U/L (40-150); Anion Gap 14 mmol/L (10-20); BUN (Urea Nitrogen) 49 mg/dL (8.4-25.7); Bilirubin, Total 0.5 mg/dL (0.2-1.2); CK (CPK) 90 U/L (30-200); Calc. Creatinine Clearance 0 mL/min (70-130); Calcium 8.1 mg/dL (7.8-10.44); Carbon Dioxide 29 mmol/L (23-31); Chloride 98 mmol/L (98-107); Estimated GFR-MDRD 15; Globulin 3.8 g/dL (2.4-3.5); Glucose 116 mg/dL (83-110); Potassium 3.7 mmol/L (3.5-5.1); Protein, Total 6.9 g/dL (5.8-8.1); Sodium 137 mmol/L (136-145)
[2017-12-05 15:53] LABS: CKMB 0.8 ng/mL (0-6.6); Troponin I 0.163 ng/mL (< 0.028)
[2017-12-05 16:08] LABS: Band 6 % (5-11); Lymphocytes 49 % (21-51); MDiff Complete? YES; Monocytes 6 % (0-10); Neutrophil 37 % (42-75); PLT Morphology Comment Appears Decreased; Reactive Lymphocytes 2 % (0-10)
[2017-12-05] MEDS ORDERED: Furosemide 20 MG/2 ML VIAL SLOW IVP SCH (17:30)
[2017-12-05 18:40] VITALS: BMI 26.4
--- NOTE | 2017-12-05 18:40 | RAD ---
RIGHT HIP TWO VIEWS: 12/05/17 HISTORY: Fall. Pain. FINDINGS: Contour of the femoral head is maintained. Joint space is preserved. No definite fracture. IMPRESSION: No definite fracture. POS: BEN
--- NOTE | 2017-12-05 18:41 | RAD ---
RIGHT TIBIA AND FIBULA TWO VIEWS 12/05/17 HISTORY: Fall. Pain. COMPARISON: None. FINDINGS: No fracture. No cortical irregularity or periosteal reaction. IMPRESSION: Unremarkable two views right tibia and fibula. POS: LARRY
--- NOTE | 2017-12-05 18:42 | RAD ---
TWO VIEW CHEST 12/05/17 HISTORY: Weakness. COMPARISON: 06/10/14. FINDINGS: Atherosclerosis of the aorta. Stable configuration of the cardiac silhouette. Chronic changes of the lung parenchyma are suspected. No consolidation or mass. No pneumothorax or osseous abnormalities. St able elevation of the left hemidiaphragm. IMPRESSION: Chronic changes. POS: LARRY
[2017-12-05] MEDS: Gabapentin 300 MG CAP PO SCH (20:19)
--- NOTE | 2017-12-05 22:19 | HP ---
PRIMARY CARE PROVIDER: Out of town PCP. CHIEF COMPLAINT: Weakness. HISTORY OF PRESENT ILLNESS: The patient is an 82-year-old male with history of prostate cancer with mets who presents to the hospital with complaints of falling and generalized weakness. Patient stated that for the past couple of days, his legs have been giving out and he has been falling on the floor on his knees. Denies any head injury. Patient states that he also has been having some shakes, but denies any fevers. The patient also states that he has been nauseated and has had emesis x1, but is able to tolerate oral food well. The patient denies any diarrhea or any abdominal pain. Denies any chest pain at this time nor does he complain of shortness of breath. Patient normally ambulates with a cane. The patient normally gets dialyzed, , , and Saturdays. ALLERGIES: He has no known drug allergies. HOME MEDICATIONS: Metoprolol 50 mg p.o. b.i.d., bicalutamide 50 mg daily, hydralazine 50 mg p.o. daily, gabapentin 300 mg p.o. at bedtime. PAST MEDICAL HISTORY: Metastatic prostate cancer, reflux, hypertension, end- stage renal disease on hemodialysis and paroxysmal atrial fibrillation. PAST SURGICAL HISTORY: The patient had a laparoscopic cholecystectomy. PAST SURGICAL HISTORY: Back surgery x3, hernia repair, status shunt in the left upper extremities. SOCIAL HISTORY: The patient is , lives with his . He has a history of smoking in the past. Currently, he is not smoking. Denies any alcohol or drug use. CODE STATUS: Addressed with the patient. Patient wants to be currently FULL CODE. FAMILY HISTORY: Positive for kidney disease, cancer among several family members. REVIEW OF SYSTEMS: The following complete review of systems was negative, unless otherwise mentioned in the HPI or below: Constitutional: Weight loss or gain, ability to conduct usual activities. Skin: Rash, itching. Eyes: Double vision, pain. ENT/Mouth: Nose bleeding, neck stiffness, pain, tenderness. Cardiovascular: Palpitations, dyspnea on exertion, orthopnea. Respiratory: Shortness of breath, wheezing, cough, hemoptysis, fever, or night sweats. Gastrointestinal: Poor appetite, abdominal pain, heartburn, nausea, vomiting, constipation, or diarrhea. Genitourinary: Urgency, frequency, dysuria, nocturia. Musculoskeletal: Pain, swelling. Neurologic/Psychiatric: Anxiety, depression. Allergy/Immunologic: Skin rash, bleeding tendency. Please see my HPI for pertinent positives and negatives. All other review of systems reviewed and negative except as mentioned in the HPI. PHYSICAL EXAMINATION. VITAL SIGNS: The patient's temperature is 98.4, respirations 15, 85 heart rate. Blood pressure last one was 98/45. GENERAL: He is awake, alert, oriented x3, does not appear in distress. CARDIOVASCULAR: S1, S2 present. No murmurs, rubs or gallops. LUNGS: Clear to auscultation. No rhonchi, wheezes noted. ABDOMEN: Soft, nontender. Bowel sounds are present x2. EXTREMITIES: He does have mild lower extremity pitting edema. He does complain of some pain on his left hopkins area. LABORATORY DATA: WBCs were 2.0, hemoglobin of 4.1, hematocrit of 12.3, platelets of 8. Chemistry richard sodium of 137, potassium of 3.7, BUN of 49, creatinine 4.51. ASSESSMENT AND PLAN: The patient is a very pleasant 82-year-old male who presents to the hospital with complaints of generalized weakness and falls. 1. Severe anemia, hemoglobin of 4.1. Patient currently is typed and crossed. There is an order for transfusing 4 units of blood. We will also give 1 unit of platelets. The patient states that his oncologist is out of town, Dr. Quinteros. He is on casodex for his prostate cancer; however, he did receive radiation in the past. The patient states that he denies any lightheadedness; however, just felt weak to his legs which caused his fall. 2) thrombocytopenia: will transfuse platelets 3). Recent bacteremia due to Streptococcus mutans. Patient is on vancomycin, which he receives during his dialysis. We will continue that based on his previous discharge summary, he will receive the vancomycin until 01/07/2018. 3. End-stage renal disease, on dialysis. 4. Prostate cancer with metastatic bone on Casodex. 5. pancytopenia 6. Deep venous thrombosis prophylaxis. We will put patient on sequential compression devices. MTDD
[2017-12-06] MEDS ORDERED: Furosemide 20 MG/2 ML VIAL SLOW IVP SCH (03:30)
[2017-12-06 04:59] LABS: Hemoglobin 5.8 g/dL (14.0-18.0); Mean Corpuscular HGB CONC 35.1 g/dL (32.0-36.0); Mean Corpuscular Hemoglobin 30.6 pg (27.0-31.0); Mean Corpuscular Volume 87.2 fl (80.0-94.0); RBC Distribution Width 13.6 % (11.5-14.5); White Blood Cell (WBC) Count 1.8 thou/uL (4.8-10.8)
[2017-12-06 05:32] LABS: Band 5 % (5-11); Lymphocytes 53 % (21-51); MDiff Complete? YES; Mean Platelet Volume 8.4 fL (7.4-10.4); Monocytes 11 % (0-10); Neutrophil 31 % (42-75); PLT Morphology Comment Appears Decreased; Platelet Count 51 thou/uL (130-400)
[2017-12-06 06:06] LABS: Anion Gap 11 mmol/L (10-20); BUN (Urea Nitrogen) 58 mg/dL (8.4-25.7); Calc. Creatinine Clearance 14 mL/min (70-130); Carbon Dioxide 32 mmol/L (23-31); Chloride 99 mmol/L (98-107); Estimated GFR-MDRD 14; Glucose 100 mg/dL (83-110); Sodium 138 mmol/L (136-145)
[2017-12-06] MEDS: Famotidine 20 MG TAB PO SCH (08:16)
[2017-12-06] MEDS ORDERED: HOLD VANCOMYCIN FOR LEVEL >20 FS SCH (08:45)
[2017-12-06] MEDS ORDERED: Vancomycin HCl 1.25 GM in Sodium Chloride 0.9% 250 ML 250 ML IVPB SCH (08:45)
[2017-12-06] MEDS ORDERED: Vancomycin Sliding Scale 1 EACH FS SCH (08:45)
[2017-12-06] MEDS ORDERED: Vancomycin HCl 500 MG in Sodium Chloride 0.9% 100 ML IVPB SCH ×2 (08:45→09:00)
[2017-12-06] MEDS ORDERED: Vancomycin HCl 1 GM in Premix Bag 1 BAG IVPB SCH (08:45)
[2017-12-06 09:19] LABS: Vancomycin, Random 11.5 ug/mL (See Comment)
[2017-12-06] MEDS ORDERED: Vancomycin HCl 2 GM, Admixture Fee 1 EACH in Sodium Chloride 0.9% 500 ML IVPB SCH (10:00)
[2017-12-06] MEDS: Sodium Chloride 0.9% 1,000 ML IV SCH ×2 (11:31→15:32)
[2017-12-06] MEDS: Vancomycin HCl 750 MG in Sodium Chloride 0.9% 250 ML 250 ML IVPB SCH (11:50)
--- NOTE | 2017-12-06 11:53 | PQF ---
DATE: 12-06-17 ATTN: DR. TANI GERARDO Please exercise your independent, professional judgment in responding to the clarification form. Clinical indicators are provided on the bottom of this form for your review Please check appropriate box(s): Pancytopenia due to: [ x ] Chemotherapy/antineoplastic drugs [ ] Other drug-induced (please specify if known): [ ] Other diagnosis [ ] Unable to determine In addition, please specify: Present on Admission (POA): [ x ] Yes [ ] No [ ] Unable to determine For continuity of documentation, please document condition throughout progress notes and discharge summary. Thank You. CLINICAL INDICATORS - SIGNS / SYMPTOMS / LABS WBC: 12-05-17: 2.0 12-06-17: 1.8 RBC: 12-05-17: 1.34 12-06-17: 1.90 HEMOGLOBIN: 12-05-17: 4.1, 12-06-17: 5.8 HEMATOCRIT: 12-05-17: 12.3 12-06-17: 16.6 PLATELET COUNT: 12-05-17: 8 12-06-17: 51 ER: C/O OF WEAKNESS FOR 1 MONTH RISK FACTORS: H&P: METASTATIC PROSTATE CANCER WITH METASTATIC BONE ON CASODEX, HE DID RECEIVE RADIATION IN PAST TREATMENT: H&P: THROMBOCYTOPENIA: WILL TRANSFUSE PLATELETS, ORDER FOR TRANSFUSING 4 UNITS OF BLOOD (This form is maintained as a part of the permanent medical record) 2014 [employer], [employer]. All Rights Reserved MIGUEL ÁNGEL [email or web address] Office: [phone] [facility]
--- NOTE | 2017-12-06 12:21 | CON ---
DATE OF CONSULTATION: 12/06/2017 HISTORY OF PRESENT ILLNESS: Mr. Beltran is an 82-year-old black male with known history of ESRD admitted for generalized weakness. He was noted to have significant anemia. He has already received 2 units of packed RBC. This is Dr. Zaidi's patient, I am calling for him. We were consulted for his maintenance hemodialysis. Our plan is for him to undergo his regular Sunday, , and Sunday dialysis. REVIEW OF SYSTEMS: Positive for shaking, positive for generalized weakness. No nausea, no vomiting. Appetite fair. Energy level is fair. No headache, no diplopia, no syncopal episode, no productive cough, no fever or chills, no chest pain or shortness of breath, no gross hematuria, no dysuria, no hematochezia, no melena, no abdominal pain. Appetite and energy level is fair. HOME MEDICATIONS: Metoprolol 50 mg p.o. b.i.d., bicalutamide 50 mg daily, hydralazine 50 mg daily, and gabapentin 300 mg tablet at bedtime. PAST MEDICAL HISTORY: ESRD from hypertensive nephropathy, longstanding hypertension, paroxysmal atrial fibrillation, and metastatic prostate cancer - currently on hormonal treatment. PAST SURGICAL HISTORY: 1. Status post laparoscopic cholecystectomy. 2. Status post AV fistula. 3. Status post cuffed dialysis catheter placement. 4. Status post prostate biopsy. 5. Status post back surgery. SOCIAL HISTORY: The patient is and lives in [place], [place]. Fourteen children. Currently not working. He did smoke for several years in the past. Currently, no alcohol. Status post multiple blood transfusions. ALLERGIES: No known drug allergies. TRAUMA: None. IMMUNIZATIONS: Up to date. HOSPITALIZATIONS: Please see past medical history. FAMILY HISTORY: Positive family history of chronic renal failure. PHYSICAL EXAMINATION: VITAL SIGNS: Blood pressure is noted at 126, 130/70, heart rate 94, respiratory rate 14, temperature 98.7, and pulse ox 90%. GENERAL: Awake, alert, comfortable, not in overt distress. SKIN: Adequate turgor. HEENT: Slightly pale conjunctivae, anicteric sclerae. NECK: No neck mass, no carotid bruits, no JVD. CHEST: No deformities. LUNGS: Clear breath sounds, no wheezing, no crackles. HEART: Normal sinus rhythm. No murmur, no gallops, no rubs. ABDOMEN: Globular, soft, nontender. No masses. EXTREMITIES: No edema, no deformities. LABORATORY DATA: On 12/06/2017, white count 1.8, hemoglobin 5.8. Sodium 138, potassium 4, chloride 99, carbon dioxide 32, BUN 58, creatinine 4.99, glucose 100, and calcium 8.0. ASSESSMENT AND PLAN: 1. End-stage renal disease. Our plan is to continue current maintenance hemodialysis. Due to the anemia, we will avoid using any heparin with this patient. I feel that the anemia may be related to his underlying metastatic prostate lesion? to the bone marrow. 2. Continue supportive care. P.r.n. blood transfusion. 3. Please note he has received 2 units of packed RBC last night. 4. Metastatic prostate cancer, supportive care. The patient is currently on antiandrogen therapy. Overall, prognosis remains guarded. MTDD
--- NOTE | 2017-12-06 16:14 | PDOC.PN ---
- Subjective Encounter Start Date: 12/06/17 Encounter Start Time: 11:30 Subjective: pt complaining of pain to his right hip and right hopkins - Objective Vital Signs & Weight: Vital Signs (12 hours) Temp Pulse Pulse Resp BP BP BP 12/06/17 15:04 99.0 F 103 H 21 H 148/63 H 12/06/17 10:46 98 F 90 18 156/69 H 12/06/17 10:30 98 F 96 18 149/74 H 12/06/17 10:15 98 F 95 18 158/78 H 12/06/17 10:05 98.2 F 89 18 147/70 H 12/06/17 09:53 98.2 F 89 16 136/70 12/06/17 08:15 98.7 F 94 14 12/06/17 07:25 98.7 F 94 14 130/70 Pulse Ox 12/06/17 15:04 96 12/06/17 10:46 12/06/17 10:30 12/06/17 10:15 12/06/17 10:05 12/06/17 09:53 12/06/17 08:15 98 12/06/17 07:25 90 L Weight Weight 178 lb 9.6 oz I&O: 12/05/17 12/06/17 12/07/17 06:59 06:59 06:59 Intake Total 950 830 Balance 950 830 Result Diagrams: 12/06/17 04:32 12/06/17 04:32 Phys Exam - Physical Examination HEENT: PERRLA, moist MMs, sclera anicteric, TM's clear, oral pharynx no lesions , 2+ tonsils Neck: no nodes, no JVD, supple, full ROM Respiratory: no wheezing, no rales, no rhonchi, wheezing present, clear to auscultation bilateral Cardiovascular: RRR, no significant murmur, no rub, gallop, irregular Gastrointestinal: soft, non-tender, no distention, positive bowel sounds pain on palpation of right hip and right hopkins area Neurological: non-focal, normal sensation, moves all 4 limbs Dx/Plan - Plan 1) Acute anemia 2) pancytopenia 3) prostate ca 4) ESRD 5) recent bactremia plan: pt s/p 3units of blood and 1 of platelets. will check hh still his hh is still 5.8. Pt is asymptomatic. Platelets has improved. pt on dialysis ,th, sat. Pt on casodex. will continue vanco for now with dialysis until 12/30. right xray pending. pt will need bone marrow biopsy done post discharge for his pancytopenia. * . Review of Systems - Review of Systems Eyes: negative: Pain, Vision Change, Conjunctivae Inflammation, Eyelid Inflammation, Redness, Other ENT: negative: Ear Pain, Ear Discharge, Nose Pain, Nose Discharge, Nose Congestion, Mouth Pain, Mouth Swelling, Throat Pain, Throat Swelling, Other Respiratory: negative: Cough, Dry, Shortness of Breath, Hemoptysis, SOB with Excertion, Pleuritic Pain, Sputum, Wheezing Cardiovascular: negative: chest pain, palpitations, orthopnea, paroxysmal nocturnal dyspnea, edema, light headedness, other Gastrointestinal: negative: Nausea, Vomiting, Abdominal Pain, Diarrhea, Constipation, Melena, Hematochezia, Other Musculoskeletal: Leg Pain - Medications/Allergies Allergies/Adverse Reactions: Allergies Allergy/AdvReac Type Severity Reaction Status Date / Time No Known Allergies Allergy Verified 12/05/17 18:33 Medications: Current Medications Famotidine (Pepcid) 20 mg PO DAILY [facility] Last Admin: 12/06/17 08:16 Dose: 20 mg Gabapentin (Neurontin) 300 mg PO HS [facility] Last Admin: 12/05/17 20:19 Dose: 300 mg Vancomycin HCl 1.25 gm/ Sodium (Chloride) 250 mls @ 166.667 mls/hr IVPB [facility] Vancomycin HCl 1 gm/ Device 200 mls @ 200 mls/hr IVPB [facility] Vancomycin HCl 750 mg/ Sodium (Chloride) 250 mls @ 250 mls/hr IVPB [facility] Last Admin: 12/06/17 11:50 Dose: 250 mls Vancomycin HCl 500 mg/ Sodium (Chloride) 100 mls @ 100 mls/hr IVPB [facility]CALL [facility] Miscellaneous Medication (Pharmacy To Dose) 1 each IVPB ASDIR [facility] Miscellaneous Medication (Vancomycin Sliding Scale) 1 each FS ASDIR [facility] Hold Vancomycin For (Level >20) 0 each FS .AT DIALYSIS [facility] Sodium Chloride (Flush - Normal Saline) 10 ml IVF Q12HR [facility] Last Admin: 12/06/17 11:31 Dose: Not Given Sodium Chloride (Flush - Normal Saline) 10 ml IVF PRN PRN PRN Reason: Saline Flush
--- NOTE | 2017-12-06 16:52 | RAD ---
RIGHT TIBIA AND FIBULA TWO VIEW 12/06/17 HISTORY: Fall. COMPARISON: None. FINDINGS: No fracture. No malalignment. Diffuse soft tissue phleboliths. IMPRESSION: No acute fracture. POS: [facility]
--- NOTE | 2017-12-06 16:52 | RAD ---
RIGHT HIP 2 VIEWS: HISTORY: Fall. Right hip injury. COMPARISON: 11/28/10. FINDINGS: There is mild joint space narrowing and osteophytosis. Femoral head contour is maintained. Postoper ative changes of the pubic symphysis are apparent. No acute fracture or dislocation. Osseous struct ures are demineralized. IMPRESSION: 1. Mild osteoarthritic changes right hip. 2. Osteoporosis. POS: [facility]
[2017-12-06 17:29] LABS: Anisocytosis SLIGHT = 6-15 cells (100X) (0-5/hpf); Band 5 % (5-11); Differential Comment Blast-Like Cell(s); Hypochromia SLIGHT = 6-15 cells (100X) (0-5/hpf); Lymphocytes 19 % (21-51); MDiff Complete? YES; Mean Corpuscular HGB CONC 28.9 g/dL (32.0-36.0); Mean Corpuscular Hemoglobin 30.4 pg (27.0-31.0); Mean Platelet Volume 10.1 fL (7.4-10.4); Monocytes 7 % (0-10); Neutrophil 65 % (42-75); Ovalocytes SLIGHT = 2-5 cells (100X) (0-1/hpf); PLT Morphology Comment Appears Decreased; Platelet Count 49 thou/uL (130-400); RBC Distribution Width 13.1 % (11.5-14.5); Red Blood Cell (RBC) Count 2.31 mill/uL (4.70-6.10); White Blood Cell (WBC) Count 2.3 thou/uL (4.8-10.8)
[2017-12-06] MEDS: Gabapentin 300 MG CAP PO SCH (21:33)
[2017-12-07 06:42] LABS: Hemoglobin 6.8 g/dL (14.0-18.0); Mean Corpuscular HGB CONC 34.5 g/dL (32.0-36.0); Mean Corpuscular Volume 87.1 fl (80.0-94.0); Mean Platelet Volume 8.9 fL (7.4-10.4); Platelet Count 42 thou/uL (130-400); Red Blood Cell (RBC) Count 2.26 mill/uL (4.70-6.10); White Blood Cell (WBC) Count 1.5 thou/uL (4.8-10.8)
[2017-12-07 06:56] LABS: Anion Gap 14 mmol/L (10-20); BUN (Urea Nitrogen) 37 mg/dL (8.4-25.7); Calc. Creatinine Clearance 16 mL/min (70-130); Calcium 8.4 mg/dL (7.8-10.44); Carbon Dioxide 29 mmol/L (23-31); Chloride 101 mmol/L (98-107); Estimated GFR-MDRD 18; Glucose 105 mg/dL (83-110); Potassium 3.6 mmol/L (3.5-5.1); Sodium 140 mmol/L (136-145)
[2017-12-07] MEDS: Famotidine 20 MG TAB PO SCH (08:17)
--- NOTE | 2017-12-07 08:33 | PQF ---
DATE: 12-06-17 ATTN: DR. TANI GERARDO / DR. SUHAIL ELLISON Please exercise your independent, professional judgment in responding to the clarification form. Clinical indicators are provided on the bottom of this form for your review Please check appropriate box(s): Pancytopenia due to: [ ] Chemotherapy/antineoplastic drugs [ ] Other drug-induced (please specify if known): [ ] Other diagnosis [ X ] Unable to determine In addition, please specify: Present on Admission (POA): [ ] Yes [ ] No [ ] Unable to determine For continuity of documentation, please document condition throughout progress notes and discharge summary. Thank You. CLINICAL INDICATORS - SIGNS / SYMPTOMS / LABS WBC: 12-05-17: 2.0 12-06-17: 1.8 RBC: 12-05-17: 1.34 12-06-17: 1.90 HEMOGLOBIN: 12-05-17: 4.1, 12-06-17: 5.8 HEMATOCRIT: 12-05-17: 12.3 12-06-17: 16.6 PLATELET COUNT: 12-05-17: 8 12-06-17: 51 ER: C/O OF WEAKNESS FOR 1 MONTH RISK FACTORS: H&P: METASTATIC PROSTATE CANCER WITH METASTATIC BONE ON CASODEX, HE DID RECEIVE RADIATION IN PAST TREATMENT: H&P: THROMBOCYTOPENIA: WILL TRANSFUSE PLATELETS, ORDER FOR TRANSFUSING 4 UNITS OF BLOOD (This form is maintained as a part of the permanent medical record) 2014 [employer], [employer]. All Rights Reserved MIGUEL ÁNGEL [email or web address] Office: [phone] [facility]OSPITALMadeline
[2017-12-07 09:10] LABS: Band 14 % (5-11); Lymphocytes 32 % (21-51); MDiff Complete? YES; Monocytes 16 % (0-10); Neutrophil 38 % (42-75); Ovalocytes SLIGHT = 2-5 cells (100X) (0-1/hpf); PLT Morphology Comment Appears Decreased; Polychromasia SLIGHT = 2-3 cells (100X) (0-2/hpf)
[2017-12-07] MEDS ORDERED: Bisacodyl 5 MG TAB PO PRN (16:12)
[2017-12-07] MEDS ORDERED: Bisacodyl 5 MG TAB PO SCH (16:15)
--- NOTE | 2017-12-07 17:29 | PDOC.PN ---
- Subjective Encounter Start Date: 12/07/17 Encounter Start Time: 08:20 Pt seen for followup re:constipation. Reports constipation, denies chest pain, shortness of breath, fevers or chills. - Objective MAR Reviewed: Yes Vital Signs & Weight: Vital Signs (12 hours) Temp Pulse Resp BP BP Pulse Ox 12/07/17 16:10 98 F 96 16 137/65 100 12/07/17 12:34 98.3 F 96 16 122/60 97 12/07/17 08:15 98.3 F 107 H 16 97 12/07/17 08:12 98.3 F 107 H 16 125/66 97 Weight Weight 166 lb 1 oz I&O: 12/06/17 12/07/17 12/08/17 06:59 06:59 06:59 Intake Total 950 2030 Output Total 4200 Balance 950 -2170 Result Diagrams: 12/07/17 06:16 12/07/17 06:16 EKG Reviewed by me: Yes (Tele: allyson xiao) Phys Exam - Physical Examination Constitutional: NAD HEENT: moist MMs conjunctival pallor Neck: supple Respiratory: clear to auscultation bilateral Cardiovascular: irregular Gastrointestinal: soft Neurological: moves all 4 limbs Psychiatric: normal affect Dx/Plan (1) Constipation Code(s): K59.00 - CONSTIPATION, UNSPECIFIED Status: Acute Comment: start Dulcolax (2) Anemia Code(s): D64.9 - ANEMIA, UNSPECIFIED Status: Acute Comment: s/p pRBC transfusions, hemoglobin stable. (3) Bacteremia due to Streptococcus Code(s): R78.81 - BACTEREMIA; B95.5 - UNSP STREPTOCOCCUS THE CAUSE OF DISEASES CLASSD [id number] Status: Chronic Comment: vancomycin with dialysis (4) ESRD (end stage renal disease) on dialysis Code(s): N18.6 - END STAGE RENAL DISEASE; Z99.2 - DEPENDENCE ON RENAL DIALYSIS Status: Chronic Comment: dialysis per nephrology service (5) GERD (gastroesophageal reflux disease) Code(s): K21.9 - GASTRO-ESOPHAGEAL REFLUX DISEASE WITHOUT ESOPHAGITIS Status: Chronic Comment: stable (6) Hypertension Code(s): I10 - ESSENTIAL (PRIMARY) HYPERTENSION Status: Chronic Comment: Monitor vital signs, titrate antihypertensives as needed (7) Pancytopenia Code(s): D61.818 - OTHER PANCYTOPENIA Status: Chronic Comment: will likely need bone marrow biopsy as outpatient - Plan * . Review of Systems - Review of Systems Respiratory: negative: Cough, Shortness of Breath, SOB with Excertion, Pleuritic Pain, Wheezing Cardiovascular: negative: chest pain, palpitations, orthopnea, paroxysmal nocturnal dyspnea, edema, light headedness - Medications/Allergies Allergies/Adverse Reactions: Allergies Allergy/AdvReac Type Severity Reaction Status Date / Time No Known Allergies Allergy Verified 12/05/17 18:33 Medications: Current Medications Bisacodyl (Dulcolax) 10 mg PO DAILYPRN PRN PRN Reason: Constipation Bisacodyl (Dulcolax) 10 mg PO NOW [facility] Stop: 12/07/17 18:15 Last Admin: 12/07/17 17:02 Dose: 10 mg Famotidine (Pepcid) 20 mg PO DAILY [facility] Last Admin: 12/07/17 08:17 Dose: 20 mg Gabapentin (Neurontin) 300 mg PO HS [facility] Last Admin: 12/06/17 21:33 Dose: 300 mg Vancomycin HCl 1.25 gm/ Sodium (Chloride) 250 mls @ 166.667 mls/hr IVPB [facility] Vancomycin HCl 1 gm/ Device 200 mls @ 200 mls/hr IVPB [facility] Vancomycin HCl 750 mg/ Sodium (Chloride) 250 mls @ 250 mls/hr IVPB [facility] Last Admin: 12/06/17 11:50 Dose: 250 mls Vancomycin HCl 500 mg/ Sodium (Chloride) 100 mls @ 100 mls/hr IVPB [facility] Miscellaneous Medication (Pharmacy To Dose) 1 each IVPB [facility] Hold Vancomycin For (Level >20) 0 each FS .AT DIALYSIS [facility] Sodium Chloride (Flush - Normal Saline) 10 ml IVF Q12HR [facility] Last Admin: 12/07/17 08:18 Dose: 10 ml Sodium Chloride (Flush - Normal Saline) 10 ml IVF PRN PRN PRN Reason: Saline Flush
[2017-12-07] MEDS: Gabapentin 300 MG CAP PO SCH (20:59)
[2017-12-08 07:54] LABS: Vancomycin, Trough 11.4 ug/mL
[2017-12-08] MEDS: Vancomycin HCl 750 MG in Sodium Chloride 0.9% 250 ML 250 ML IVPB SCH (09:23)
[2017-12-08 11:55] LABS: Anion Gap 13 mmol/L (10-20); BUN (Urea Nitrogen) 18 mg/dL (8.4-25.7); Calc. Creatinine Clearance 28 mL/min (70-130); Calcium 8.5 mg/dL (7.8-10.44); Carbon Dioxide 29 mmol/L (23-31); Chloride 100 mmol/L (98-107); Estimated GFR-MDRD 35; Glucose 96 mg/dL (83-110); Potassium 3.4 mmol/L (3.5-5.1); Sodium 139 mmol/L (136-145)
[2017-12-08 12:01] LABS: Band 8 % (5-11); Hemoglobin 8.4 g/dL (14.0-18.0); Large Platelets SLIGHT; Lymphocytes 35 % (21-51); MDiff Complete? YES; Mean Corpuscular HGB CONC 34.1 g/dL (32.0-36.0); Mean Corpuscular Hemoglobin 29.9 pg (27.0-31.0); Mean Corpuscular Volume 87.7 fl (80.0-94.0); Metamyelocyte 4 % (0-0); Monocytes 4 % (0-10); Myelocyte 1 % (0-0); Neutrophil 45 % (42-75); PLT Morphology Comment Appears Decreased; Platelet Count 32 thou/uL (130-400); RBC Distribution Width 12.7 % (11.5-14.5); Reactive Lymphocytes 3 % (0-10); Red Blood Cell (RBC) Count 2.81 mill/uL (4.70-6.10); White Blood Cell (WBC) Count 1.6 thou/uL (4.8-10.8)
--- NOTE | 2017-12-08 12:24 | PRG ---
DATE OF SERVICE: 12/08/2017 RENAL MEDICINE SUBJECTIVE: Mr. Beltran is an 82-year-old black male with ESRD. I am currently supervising his hemo dialysis. I am at the bedside. He is doing well. We gave him 1 unit packed RBC due to his symptoma tic anemia. No complaint of chest pain, shortness of breath. PHYSICAL EXAMINATION: VITAL SIGNS: Blood pressure is 143/79, heart rate is 92, respiratory rate 18, pulse ox 97%, and temp erature 98.7. GENERAL: Awake, alert, comfortable, not in distress. SKIN: Adequate turgor. HEENT: Slightly pale conjunctivae, anicteric sclerae. NECK: No neck mass, no carotid bruits, no JVD. CHEST: No deformities. LUNGS: Clear breath sounds, no wheezing, no crackles. HEART: Normal sinus rhythm. No murmurs, no gallops, no rubs. ABDOMEN: Globular, soft, and nontender. No masses. EXTREMITIES: No edema, no deformities. MEDICATIONS: Medications of 12/08/2017 was reviewed. LABORATORY DATA: Laboratories of 12/07/2017; white count 1.5, hemoglobin 6.8, hematocrit 19.7, BUN 3 7, and creatinine 3.88. ASSESSMENT AND PLAN: 1. Leukopenia - this could be related to a possible metastatic lesion to the bone marrow. Continue supportive care. 2. Anemia - again he has underlying metastatic prostate cancer and most likely the bone marrow is in volved. Continue p.r.n. blood transfusion. 3. End-stage renal disease, stable. Continuing 3 times a week hemodialysis regimen. No heparin use . We will recheck basic metabolic panel and CBC in a.m.
[2017-12-08] MEDS: Famotidine 20 MG TAB PO SCH (12:32)
--- NOTE | 2017-12-08 14:29 | PDOC.PN ---
- Subjective Encounter Start Date: 12/08/17 Encounter Start Time: 14:27 Pt seen for followup re: anemia. Denies chest pain, shortness of breath, fevers or chills. No nausea or vomiting. Had bowel movement. - Objective MAR Reviewed: Yes Vital Signs & Weight: Vital Signs (12 hours) Temp Pulse Resp BP Pulse Ox 12/08/17 11:20 99 F 97 16 98 12/08/17 11:11 99 F 97 16 138/76 98 12/08/17 09:20 98.1 F 12/08/17 08:55 98.1 F 12/08/17 08:39 98.0 F 12/08/17 04:00 98.7 F 92 17 140/66 97 Weight Weight 165 lb 6 oz Most Recent Monitor Data Heart Rate from ECG 95 NIBP 143/79 Respiration from ECG 16 I&O: 12/07/17 12/08/17 12/09/17 06:59 06:59 06:59 Intake Total 2030 390 350 Output Total 4200 175 Balance -2170 215 350 Result Diagrams: 12/11/17 15:00 12/10/17 05:06 EKG Reviewed by me: Yes (Tele: allyson xiao) Phys Exam - Physical Examination Constitutional: NAD HEENT: moist MMs Neck: supple Respiratory: clear to auscultation bilateral Cardiovascular: irregular Gastrointestinal: soft Neurological: moves all 4 limbs Psychiatric: normal affect Dx/Plan (1) Anemia Code(s): D64.9 - ANEMIA, UNSPECIFIED Status: Acute Comment: Hemoglobin stable today. GI blood loss vs. secondary to malignancy. (2) Bacteremia due to Streptococcus Code(s): R78.81 - BACTEREMIA; B95.5 - UNSP STREPTOCOCCUS THE CAUSE OF DISEASES CLASSD ELSWHR Status: Chronic Comment: on vancomycin with dialysis (can continue as outpatient) (3) ESRD (end stage renal disease) on dialysis Code(s): N18.6 - END STAGE RENAL DISEASE; Z99.2 - DEPENDENCE ON RENAL DIALYSIS Status: Chronic Comment: dialysis per nephrology service (4) GERD (gastroesophageal reflux disease) Code(s): K21.9 - GASTRO-ESOPHAGEAL REFLUX DISEASE WITHOUT ESOPHAGITIS Status: Chronic Comment: stable (5) Hypertension Code(s): I10 - ESSENTIAL (PRIMARY) HYPERTENSION Status: Chronic Comment: stable (6) Pancytopenia Code(s): D61.818 - OTHER PANCYTOPENIA Status: Chronic Comment: will likely need bone marrow biopsy through his oncologist's office (7) Constipation Code(s): K59.00 - CONSTIPATION, UNSPECIFIED Status: Resolved Comment: PRN Dulcolax - Plan * . Likely home 24-48 hours Review of Systems - Review of Systems Respiratory: negative: Cough, Shortness of Breath, SOB with Excertion, Pleuritic Pain, Wheezing Cardiovascular: negative: chest pain, palpitations, orthopnea, paroxysmal nocturnal dyspnea, edema, light headedness - Medications/Allergies Allergies/Adverse Reactions: Allergies Allergy/AdvReac Type Severity Reaction Status Date / Time No Known Allergies Allergy Verified 12/05/17 18:33 Medications: Current Medications Amlodipine Besylate (Norvasc) 5 mg PO DAILY [facility] Bicalutamide (Casodex) 50 mg PO DAILY [facility] Bisacodyl (Dulcolax) 10 mg PO DAILYPRN PRN PRN Reason: Constipation Famotidine (Pepcid) 20 mg PO DAILY REPLACED BY [facility] Last Admin: 12/08/17 12:32 Dose: 20 mg Gabapentin (Neurontin) 300 mg PO HS REPLACED BY [facility] Last Admin: 12/07/17 20:59 Dose: 300 mg Vancomycin HCl 1.25 gm/ Sodium (Chloride) 250 mls @ 166.667 mls/hr IVPB WILLCALL REPLACED BY [facility] Vancomycin HCl 1 gm/ Device 200 mls @ 200 mls/hr IVPB WILLCALL REPLACED BY [facility] Vancomycin HCl 750 mg/ Sodium (Chloride) 250 mls @ 250 mls/hr IVPB WILLCALL REPLACED BY [facility] Last Admin: 12/08/17 09:23 Dose: 250 mls Vancomycin HCl 500 mg/ Sodium (Chloride) 100 mls @ 100 mls/hr IVPB WILLCALL REPLACED BY [facility] Metoprolol Tartrate (Lopressor) 50 mg PO BID REPLACED BY [facility] Miscellaneous Medication (Pharmacy To Dose) 1 each IVPB ASDIR REPLACED BY [facility] Hold Vancomycin For (Level >20) 0 each FS .AT DIALYSIS REPLACED BY [facility] Non-Formulary Medication (Hydralazine Hcl [Hydralazine Hcl]) 50 mg PO DAILY REPLACED BY [facility] Sodium Bicarbonate (Bicarbonate, Sodium) 325 mg PO BID REPLACED BY [facility] Sodium Chloride (Flush - Normal Saline) 10 ml IVF Q12HR REPLACED BY [facility] Last Admin: 12/08/17 12:32 Dose: 10 ml Sodium Chloride (Flush - Normal Saline) 10 ml IVF PRN PRN PRN Reason: Saline Flush
[2017-12-08] MEDS: Gabapentin 300 MG CAP PO SCH (21:29)
[2017-12-08] MEDS: Metoprolol Tartrate 50 MG TAB PO SCH (21:30)
[2017-12-08] MEDS: Sodium Bicarbonate Tab 325 MG TAB PO SCH (21:30)
[2017-12-09 06:11] LABS: Anion Gap 13 mmol/L (10-20); BUN (Urea Nitrogen) 34 mg/dL (8.4-25.7); Calc. Creatinine Clearance 17 mL/min (70-130); Calcium 8.3 mg/dL (7.8-10.44); Carbon Dioxide 30 mmol/L (23-31); Chloride 102 mmol/L (98-107); Estimated GFR-MDRD 19; Glucose 109 mg/dL (83-110); Potassium 3.7 mmol/L (3.5-5.1); Sodium 141 mmol/L (136-145)
[2017-12-09 06:39] LABS: Band 6 % (5-11); Eosinophils 1 % (0-10); Hemoglobin 7.4 g/dL (14.0-18.0); Lymphocytes 35 % (21-51); MDiff Complete? YES; Mean Corpuscular HGB CONC 34.2 g/dL (32.0-36.0); Mean Corpuscular Hemoglobin 30.6 pg (27.0-31.0); Mean Corpuscular Volume 89.5 fl (80.0-94.0); Mean Platelet Volume 10.3 fL (7.4-10.4); Monocytes 16 % (0-10); Neutrophil 42 % (42-75); PLT Morphology Comment Appears Decreased; Platelet Count 30 thou/uL (130-400); RBC Distribution Width 12.7 % (11.5-14.5); Red Blood Cell (RBC) Count 2.41 mill/uL (4.70-6.10); White Blood Cell (WBC) Count 1.2 thou/uL (4.8-10.8)
[2017-12-09] MEDS: Famotidine 20 MG TAB PO SCH (09:06)
[2017-12-09] MEDS: Metoprolol Tartrate 50 MG TAB PO SCH ×2 (09:06→20:22)
[2017-12-09] MEDS: hydrALAZINE 25 MG TAB PO SCH (09:06)
[2017-12-09] MEDS: Sodium Bicarbonate Tab 325 MG TAB PO SCH ×2 (09:06→20:21)
[2017-12-09] MEDS: Amlodipine 5 MG TAB PO SCH (09:06)
[2017-12-09] MEDS: Bicalutamide 50 MG TAB PO SCH (10:06)
--- NOTE | 2017-12-09 13:49 | PDOC.PN ---
- Subjective Encounter Start Date: 12/09/17 Encounter Start Time: 08:40 Pt seen for followup re: anemia. Denies chest pain, shortness of berath, fevers or chills. Nursing staff report pt had bright red blood in stool. - Objective MAR Reviewed: Yes Vital Signs & Weight: Vital Signs (12 hours) Temp Pulse Resp BP Pulse Ox 12/09/17 11:21 98 F 81 18 116/74 100 12/09/17 07:19 97.6 F 86 18 128/63 99 12/09/17 04:00 98.6 F 86 18 141/68 H 99 Weight Weight 168 lb Most Recent Monitor Data Heart Rate from ECG 95 NIBP 143/79 Respiration from ECG 16 I&O: 12/08/17 12/09/17 12/10/17 06:59 06:59 06:59 Intake Total 390 2110 Output Total 175 2900 Balance 215 -790 Result Diagrams: 12/09/17 04:53 12/09/17 04:53 EKG Reviewed by me: Yes (Tele: allyson xiao) Phys Exam - Physical Examination Constitutional: NAD HEENT: moist MMs conjunctival pallor Neck: supple Respiratory: clear to auscultation bilateral Cardiovascular: irregular Gastrointestinal: soft Neurological: moves all 4 limbs Psychiatric: normal affect Skin: no rash Dx/Plan (1) Anemia Code(s): D64.9 - ANEMIA, UNSPECIFIED Status: Acute Comment: Hemoglobin dropped to 7.4 (2) Lower GI bleed Code(s): K92.2 - GASTROINTESTINAL HEMORRHAGE, UNSPECIFIED Status: Acute Comment: consult GI (3) Bacteremia due to Streptococcus Code(s): R78.81 - BACTEREMIA; B95.5 - UNSP STREPTOCOCCUS THE CAUSE OF DISEASES CLASSD ELSWHR Status: Chronic Comment: on vancomycin (4) ESRD (end stage renal disease) on dialysis Code(s): N18.6 - END STAGE RENAL DISEASE; Z99.2 - DEPENDENCE ON RENAL DIALYSIS Status: Chronic Comment: dialysis per nephrology service (5) GERD (gastroesophageal reflux disease) Code(s): K21.9 - GASTRO-ESOPHAGEAL REFLUX DISEASE WITHOUT ESOPHAGITIS Status: Chronic Comment: stable (6) Hypertension Code(s): I10 - ESSENTIAL (PRIMARY) HYPERTENSION Status: Chronic Comment: monitor vital signs and titrate antihypertensives as needed (7) Pancytopenia Code(s): D61.818 - OTHER PANCYTOPENIA Status: Chronic Comment: will likely need bone marrow biopsy through his oncologist's office - Plan * . Review of Systems - Review of Systems Respiratory: negative: Cough, Hemoptysis, Pleuritic Pain, Wheezing Gastrointestinal: Hematochezia. negative: Nausea, Vomiting, Abdominal Pain, Melena - Medications/Allergies Allergies/Adverse Reactions: Allergies Allergy/AdvReac Type Severity Reaction Status Date / Time No Known Allergies Allergy Verified 12/05/17 18:33 Medications: Current Medications Amlodipine Besylate (Norvasc) 5 mg PO DAILY [facility] Last Admin: 12/09/17 09:06 Dose: 5 mg Bicalutamide (Casodex) 50 mg PO DAILY [facility] Last Admin: 12/09/17 10:06 Dose: 50 mg Bisacodyl (Dulcolax) 10 mg PO DAILYPRN PRN PRN Reason: Constipation Famotidine (Pepcid) 20 mg PO DAILY [facility] Last Admin: 12/09/17 09:06 Dose: 20 mg Gabapentin (Neurontin) 300 mg PO HS [facility] Last Admin: 12/08/17 21:29 Dose: 300 mg Hydralazine HCl (Apresoline) 50 mg PO DAILY [facility] Last Admin: 12/09/17 09:06 Dose: 50 mg Vancomycin HCl 1.25 gm/ Sodium (Chloride) 250 mls @ 166.667 mls/hr IVPB WILLCALL [facility] Vancomycin HCl 1 gm/ Device 200 mls @ 200 mls/hr IVPB WILLCALL [facility] Vancomycin HCl 750 mg/ Sodium (Chloride) 250 mls @ 250 mls/hr IVPB WILLCALL [facility] Last Admin: 12/08/17 09:23 Dose: 250 mls Vancomycin HCl 500 mg/ Sodium (Chloride) 100 mls @ 100 mls/hr IVPB WILLCALL [facility] Metoprolol Tartrate (Lopressor) 50 mg PO BID [facility] Last Admin: 12/09/17 09:06 Dose: 50 mg Miscellaneous Medication (Pharmacy To Dose) 1 each IVPB ASDIR [facility] Hold Vancomycin For (Level >20) 0 each FS .AT DIALYSIS [facility] Sodium Bicarbonate (Bicarbonate, Sodium) 325 mg PO BID [facility] Last Admin: 12/09/17 09:06 Dose: 325 mg Sodium Chloride (Flush - Normal Saline) 10 ml IVF Q12HR [facility] Last Admin: 12/09/17 09:06 Dose: 10 ml Sodium Chloride (Flush - Normal Saline) 10 ml IVF PRN PRN PRN Reason: Saline Flush
[2017-12-09] MEDS ORDERED: GoLYTELY 4,000 ml Bottle PO SCH (18:00)
[2017-12-09] MEDS: Gabapentin 300 MG CAP PO SCH (20:22)
--- NOTE | 2017-12-09 22:05 | CON ---
DATE OF CONSULTATION: 12/09/2017 REASON FOR CONSULTATION: Anemia, hematochezia. CONSULTING PHYSICIAN: Dr. Tania Caldwell. HISTORY OF PRESENT ILLNESS: The patient is an 82-year-old -[place] male with past medical hi story of GERD, hypertension, paroxysmal atrial fibrillation, end-stage renal disease on hemodialysis and metastatic prostate cancer, presenting with complaints of weakness. For 2-3 days prior to admiss [facility], the patient stated that he had been having increased weakness in his legs characterized as shaki ng that would sometimes give out with him falling to the floor to his knees. He also endorsed some m ild nausea type symptoms, but no actual emesis in addition hematochezia. Now the hematochezia was ch aracterized as blood in the toilet, coating the stool and had only occurred once within the last 1-2 months, with the most recent occurrence occurring within the last 2-3 days. He did have approximatel y 2 bowel movements since then, that have been nonbloody in character. This bloody bowel movement wa s also associated with increased constipation for 2 days prior to admission with increased straining in order to pass the bowel movement and the blood associated with it. However, with the blood in his bowel movement, the weakness and nausea had prompted him to seek healthcare assistance and he was no guadalupe to have a profound anemia on admission, which was decreased when compared to his prior examinatio ns. Currently, denies any nausea, vomiting, fevers, chills, shortness of breath, chest pain, hematem esis, melena, or weight loss. Of note, he was seen at [facility] in 07/2017 with a colonosc opy performed at that time for the indication of hematochezia. At that time, he had multiple colonic polyps seen throughout the colon that were not intervened upon due to increased risk of bleeding fro m those sites. However, there was a 3-mm arteriovenous malformation seen in the sigmoid colon that w as subsequently intervened upon with argon plasma coagulation. Shortly after the procedure, he did h ave significant improvement in hematochezia. REVIEW OF SYSTEMS: A 10-category review of systems was obtained with all responses negative except f or the pertinent positives as listed in the HPI. PAST MEDICAL HISTORY: As per HPI. PAST SURGICAL HISTORY: Laparoscopic cholecystectomy. FAMILY HISTORY: Chronic kidney disease. Denies any GI malignancies. SOCIAL HISTORY: Denies any tobacco, alcohol or illicit drug use. OUTPATIENT MEDICATIONS: Reviewed. ALLERGIES: No known drug allergies. PHYSICAL EXAMINATION: VITAL SIGNS: Temperature 98.1, pulse 99, blood pressure 124/64, respiratory rate 16, satting 99% on room air. GENERAL: The patient is sitting in a chair at bedside, in no acute distress. Alert and oriented x4. NECK: Supple. No JVD noted. CARDIOVASCULAR: Regular rate and rhythm with no discernible murmurs, gallops or rubs. RESPIRATORY: Clear to auscultation bilaterally with no discernible wheezes or rales. ABDOMEN: Normoactive bowel sounds, soft, nontender, nondistended. EXTREMITIES: No cyanosis, clubbing or edema. LABORATORY DATA: CBC with a white blood cell count of 1.2, hemoglobin 7.4, hematocrit 21.6, platelet s 30. Chemistry with a sodium of 141, potassium 3.7, chloride 102, CO2 of 30, BUN 34, creatinine 3.6 9, glucose 109. IMAGING DATA: No current GI imaging is available for review. ASSESSMENT AND PLAN: The patient is an 82-year-old male with past medical history of gastroesophagea l reflux disease; hypertension; end-stage renal disease, on hemodialysis; paroxysmal atrial fibrillat ion, not on anticoagulation; and metastatic prostate cancer; presenting with significant/symptomatic anemia. Symptomatic anemia/hematochezia: The patient is presenting with a decrease in his baseline H&H that has been repeatedly occurring over the course of the last year. Per chart review, he would have epis odes of a decreased H&H that would generate symptoms. He will be admitted to the hospital, infused w ith blood with evaluations negative at that time, discharged ultimately to home and repeat within the next few months. He is currently being followed by the Oncology Service for metastatic prostate can cer and is currently on Casodex as part of treatment. He has also received radiation of the prostate in the past, which could generate a picture of radiation proctitis, but that was not seen during the colonoscopy performed in 07/2017. At this point in time, the origin of his anemia is largely unknow n given lack of overt GI bleeding; however, he does have a history of mild hematochezia that could be potentially contributing. At this point, I would recommend both upper and lower endoscopy for evalu ation of this recurrent significant anemia. RECOMMENDATIONS: 1. We would continue to trend H&H and transfuse as necessary to maintain an H&H of 7/. 2. Continue to monitor clinically for signs of active gastrointestinal bleeding. 3. Please place the patient on a clear liquid diet today and n.p.o. at midnight in preparation for p rocedures in the morning. We will proceed with both EGD and colonoscopy tomorrow for signs of active gastrointestinal bleeding. 4. If both EGD and colonoscopy are negative for obvious source of bleeding, we would then consider a nemia as a result of metastatic prostate disease. We will continue to follow. Please call with any questions.
[2017-12-10 05:40] LABS: Hemoglobin 7.6 g/dL (14.0-18.0); Mean Corpuscular HGB CONC 33.3 g/dL (32.0-36.0); Mean Corpuscular Volume 90.2 fl (80.0-94.0); Platelet Count 20 thou/uL (130-400); RBC Distribution Width 12.6 % (11.5-14.5); Red Blood Cell (RBC) Count 2.52 mill/uL (4.70-6.10); White Blood Cell (WBC) Count 1.2 thou/uL (4.8-10.8)
[2017-12-10 05:57] LABS: Band 5 % (5-11); Lymphocytes 34 % (21-51); MDiff Complete? YES; Monocytes 25 % (0-10); Neutrophil 36 % (42-75); Nucleated RBC 1 % (0); PLT Morphology Comment Appears Decreased
[2017-12-10] MEDS: Metoprolol Tartrate 50 MG TAB PO SCH ×2 (06:01→20:34)
[2017-12-10 06:06] LABS: Anion Gap 12 mmol/L (10-20); BUN (Urea Nitrogen) 44 mg/dL (8.4-25.7); Calc. Creatinine Clearance 14 mL/min (70-130); Calcium 8.2 mg/dL (7.8-10.44); Carbon Dioxide 31 mmol/L (23-31); Chloride 101 mmol/L (98-107); Estimated GFR-MDRD 15; Glucose 96 mg/dL (83-110); Potassium 4.3 mmol/L (3.5-5.1); Sodium 140 mmol/L (136-145)
[2017-12-10] MEDS: Bicalutamide 50 MG TAB PO SCH (10:45)
[2017-12-10] MEDS: Amlodipine 5 MG TAB PO SCH (10:46)
[2017-12-10] MEDS: Sodium Bicarbonate Tab 325 MG TAB PO SCH ×2 (10:46→20:34)
[2017-12-10] MEDS: hydrALAZINE 25 MG TAB PO SCH (10:47)
[2017-12-10] MEDS: Famotidine 20 MG TAB PO SCH (10:47)
--- NOTE | 2017-12-10 10:59 | OP ---
DATE OF PROCEDURE: 12/10/2017 PROCEDURES: EGD with controlled hemorrhage, colonoscopy (diagnostic). INDICATION FOR PROCEDURE: Anemia. DESCRIPTION OF PROCEDURE: After the risks and benefits of the procedure were explained to the patien t including risks of bleeding, infection, perforation, reaction to anesthesia and/or pain, informed c onsent was obtained. The patient was then taken to the endoscopy suite where deep sedation was admin istered via propofol and anesthesia support. After adequate sedation was achieved, the standard yari roscope was introduced into the mouth with intubation of the esophagus, stomach, and proximal small i ntestine with the findings listed below. Patient tolerated the upper endoscopy well with no immediat e perioperative complications. After the completion of the upper endoscopy, the bed was rotated appr oximately 180 degrees, with initiation of the colonoscopy portion of the exam. After an external rec fernando examination was performed, the standard colonoscope was introduced into the rectum and advanced t o the cecum without difficulty. The quality of the prep was poor with a large amount of both solid a nd retained stool throughout the colon that was not amenable to irrigation and suctioning in some are as. The patient tolerated the procedure well with no immediate perioperative complications. EGD FINDINGS: Esophagus: Normal-appearing mucosa was seen in the proximal, mid and distal esophagus. There was no evidence of erosions, ulcerations, mass lesions, or active/recent bleeding. Both the diaphragmatic pinch and GE junction were well seen at approximately 41 cm past the incisors. Stomach: Normal-appearing mucosa was seen in the gastric cardia, fundus, body, and incisura. A 5-6 mm polyp was seen in the junction between the gastric body and antrum without any evidence of overt u lceration or active/recent bleeding; however, a 1-2 mm petechia-like spot was seen in the gastric ant rum adjacent to the pylorus that had a small amount of blood overlying it. Upon irrigation of this r egion, there was some minimal oozing of blood from what appeared to be a small AVM. Bipolar cautery was then applied to this region with good hemostasis achieved. Duodenum: Normal-appearing mucosa was seen in both the duodenal bulb and second portion of the duode num. There was no evidence of erosions, ulcerations, mass lesions, or active/recent bleeding. IMPRESSION: 1. Small, 1-2 mm arteriovenous malformation seen in the antrum adjacent to the pylorus with minimal oozing of blood, now status post bipolar cautery. 2. A 5-6 mm gastric polyp, not removed due to increased risk of bleeding. 3. Otherwise, normal upper endoscopy. RECOMMENDATIONS: Proceed to colonoscopy. COLONOSCOPY FINDINGS. Digital rectal examination normal with no external findings. COLON FINDINGS: A large amount of retained solid and liquid stool was seen in the rectum, sigmoid, d escending, transverse, and ascending colons thereby limiting visualization of the colonic mucosa. De spite aggressive irrigation and suctioning, this was not able to be converted to an adequate preparat ion for the screening of fine mucosal abnormalities, but it was adequate enough for the screening for gross abnormalities and/or active bleeding of the mucosa seen. Normal-appearing mucosa was seen at the ileocecal valve and appendiceal orifice. Normal-appearing mucosa was seen in the cecum, ascendin g colon, transverse, descending colon, and sigmoid colon. An 8-9 mm semi-pedunculated polyp (previou sly described) was seen in the rectum at 20 cm past the anal verge. He did not display any evidence of overt ulceration or active/recent bleeding. The mucosa in the rectum; however, showed moderate fr iability of the mucosa with passage of the colonoscope with a moderate amount of colonoscope trauma n oted immediately at the rectum near the anal orifice. The scope trauma was characterized as minimal oozing of blood as well as submucosal hemorrhage, but no significant/appreciable blood loss was seen from this examination. On rectal retroflexion, large internal hemorrhoids were seen (grade 2). IMPRESSION: 1. Large amount of retained solid and liquid stool, thereby limiting visualization of the colonic mu cosa. The prep was inadequate for the evaluation of fine mucosal detail of any lesions less than 5 m m in size. 2. An 8-9 mm rectal polyp, not intervened upon due to increased risk of bleeding with removal. 3. Moderate friability of the colonic mucosa, especially within the rectum upon passage of the colon oscope, which could potentially create a long-term bleeding problem. RECOMMENDATIONS: 1. Continue to trend H and H and transfuse as necessary to maintain an H and H of 07/21. 2. Continue to monitor clinically for signs of active gastrointestinal bleeding. 3. Recommend higher fiber diet to facilitate passage of stool through the colon and treatment of hem orrhoids and friability of the mucosa itself. 4. Repeat upper endoscopy is not indicated at this time. 5. We would recommend consultation of Hematology service for evaluation of the patient's recurring a nemia in light of metastatic prostate cancer. We will sign off at this time. Please call with any additional questions.
--- NOTE | 2017-12-10 15:00 | PDOC.PN ---
- Subjective Encounter Start Date: 12/10/17 Encounter Start Time: 14:59 Pt seen for followup re: anemia. Had EGD and colonoscopy today. - Objective MAR Reviewed: Yes Vital Signs & Weight: Vital Signs (12 hours) Temp Pulse Resp BP BP Pulse Ox 12/10/17 12:31 98.6 F 87 16 129/60 100 12/10/17 10:26 98.8 F 82 16 146/76 H 96 12/10/17 07:04 99 F 85 16 133/85 100 12/10/17 04:00 99.0 F 92 18 124/68 97 Weight Weight 170 lb 6.677 oz Most Recent Monitor Data Heart Rate from ECG 95 NIBP 143/79 Respiration from ECG 16 I&O: 12/09/17 12/10/17 12/11/17 06:59 06:59 06:59 Intake Total 2110 5080 Output Total 2900 0 Balance -790 5080 Result Diagrams: 12/10/17 05:06 12/10/17 05:06 Additional Labs: Labs reviewed by me. EKG Reviewed by me: Yes (Tele: NSR) Phys Exam - Physical Examination Constitutional: NAD conjunctival pallor Neck: no JVD Respiratory: clear to auscultation bilateral Cardiovascular: RRR Gastrointestinal: soft Neurological: moves all 4 limbs Psychiatric: normal affect Dx/Plan (1) Anemia Code(s): D64.9 - ANEMIA, UNSPECIFIED Status: Acute Comment: Hemoglobin stable today. GI blood loss vs. secondary to malignancy. (2) Lower GI bleed Code(s): K92.2 - GASTROINTESTINAL HEMORRHAGE, UNSPECIFIED Status: Acute Comment: s/p EGD and C-scope, reports noted. (3) Bacteremia due to Streptococcus Code(s): R78.81 - BACTEREMIA; B95.5 - UNSP STREPTOCOCCUS THE CAUSE OF DISEASES CLASSD ELSWHR Status: Chronic Comment: on vancomycin with dialysis (can continue as outpatient) (4) ESRD (end stage renal disease) on dialysis Code(s): N18.6 - END STAGE RENAL DISEASE; Z99.2 - DEPENDENCE ON RENAL DIALYSIS Status: Chronic Comment: dialysis per nephrology service (5) GERD (gastroesophageal reflux disease) Code(s): K21.9 - GASTRO-ESOPHAGEAL REFLUX DISEASE WITHOUT ESOPHAGITIS Status: Chronic Comment: stable (6) Hypertension Code(s): I10 - ESSENTIAL (PRIMARY) HYPERTENSION Status: Chronic Comment: stable (7) Pancytopenia Code(s): D61.818 - OTHER PANCYTOPENIA Status: Chronic Comment: will likely need bone marrow biopsy through his oncologist's office - Plan * . Review of Systems - Review of Systems Constitutional: negative: fever, chills, sweats, weakness, malaise Respiratory: negative: Cough, Shortness of Breath, SOB with Excertion, Pleuritic Pain, Wheezing - Medications/Allergies Allergies/Adverse Reactions: Allergies Allergy/AdvReac Type Severity Reaction Status Date / Time No Known Allergies Allergy Verified 12/05/17 18:33 Medications: Current Medications Amlodipine Besylate (Norvasc) 5 mg PO DAILY [facility] Last Admin: 12/10/17 10:46 Dose: 5 mg Bicalutamide (Casodex) 50 mg PO DAILY [facility] Last Admin: 12/10/17 10:45 Dose: 50 mg Bisacodyl (Dulcolax) 10 mg PO DAILYPRN PRN PRN Reason: Constipation Famotidine (Pepcid) 20 mg PO DAILY [facility] Last Admin: 12/10/17 10:47 Dose: 20 mg Gabapentin (Neurontin) 300 mg PO HS [facility] Last Admin: 12/09/17 20:22 Dose: 300 mg Hydralazine HCl (Apresoline) 50 mg PO DAILY [facility] Last Admin: 12/10/17 10:47 Dose: 50 mg Vancomycin HCl 1.25 gm/ Sodium (Chloride) 250 mls @ 166.667 mls/hr IVPB WILLCALL [facility] Vancomycin HCl 1 gm/ Device 200 mls @ 200 mls/hr IVPB WILLCALL [facility] Vancomycin HCl 750 mg/ Sodium (Chloride) 250 mls @ 250 mls/hr IVPB WILLCALL [facility] Last Admin: 12/08/17 09:23 Dose: 250 mls Vancomycin HCl 500 mg/ Sodium (Chloride) 100 mls @ 100 mls/hr IVPB WILLCALL [facility] Metoprolol Tartrate (Lopressor) 50 mg PO BID [facility] Last Admin: 12/10/17 06:01 Dose: 50 mg Miscellaneous Medication (Pharmacy To Dose) 1 each IVPB ASDIR [facility] Hold Vancomycin For (Level >20) 0 each FS .AT DIALYSIS [facility] Sodium Bicarbonate (Bicarbonate, Sodium) 325 mg PO BID [facility] Last Admin: 12/10/17 10:46 Dose: 325 mg Sodium Chloride (Flush - Normal Saline) 10 ml IVF Q12HR [facility] Last Admin: 12/10/17 10:48 Dose: 10 ml Sodium Chloride (Flush - Normal Saline) 10 ml IVF PRN PRN PRN Reason: Saline Flush
[2017-12-10] MEDS ORDERED: PROPOFOL 200 MG/20 ML VIAL ONE (15:13)
[2017-12-10] MEDS: Gabapentin 300 MG CAP PO SCH (20:34)
--- NOTE | 2017-12-11 00:09 | PRG ---
DATE OF SERVICE: 12/10/2017 SUBJECTIVE: The patient seen and examined with no new complaint noted with the following vital signs . OBJECTIVE: VITAL SIGNS: Afebrile with temperature 98.7, pulse 88, respiratory rate 18, and O2 sat 96% with a bl ood pressure 137/63. HEENT: Unremarkable with moist oral mucosa. Neck is supple. No conjunctival injection or icterus. CARDIOVASCULAR: First and second heart sounds were heard. RESPIRATORY: Clear to auscultation. DIGESTIVE: Revealed a benign abdomen with positive bowel sounds. EXTREMITIES: No peripheral edema. SKIN: No new gross rash. LYMPHATICS: No peripheral lymphadenopathy. LABORATORY INVESTIGATION: Showed hemoglobin of 7.6, white count of 1.2, and platelet 20,000. Chemis try showed a creatinine of 4.7 and BUN of 44. IMPRESSION: 1. Severe pancytopenia in the context of advanced metastatic prostatic carcinoma. 2. End-stage renal disease, hemodialysis dependent. 3. Metastatic prostatic carcinoma. PLAN: 1. The patient to be dialyzed tomorrow with possibility of transfusing this patient with 1 unit of b lood. 2. Further management to be dependent on the clinical course.
[2017-12-11 07:05] LABS: Vancomycin, Random 10.1 ug/mL (See Comment)
[2017-12-11] MEDS: Famotidine 20 MG TAB PO SCH (12:34)
[2017-12-11] MEDS: Amlodipine 5 MG TAB PO SCH (12:34)
[2017-12-11] MEDS: hydrALAZINE 25 MG TAB PO SCH (12:35)
[2017-12-11] MEDS: Metoprolol Tartrate 50 MG TAB PO SCH (12:35)
[2017-12-11] MEDS ORDERED: Clopidogrel Bisulfate 75 MG TAB ONE (12:37)
[2017-12-11] MEDS: Bicalutamide 50 MG TAB PO SCH (15:23)
[2017-12-11] MEDS: Sodium Bicarbonate Tab 325 MG TAB PO SCH (15:23)
[2017-12-11 15:38] LABS: Band 5 % (5-11); Hemoglobin 8.8 g/dL (14.0-18.0); Lymphocytes 46 % (21-51); MDiff Complete? YES; Mean Corpuscular HGB CONC 34.8 g/dL (32.0-36.0); Mean Corpuscular Hemoglobin 30.6 pg (27.0-31.0); Mean Corpuscular Volume 87.9 fl (80.0-94.0); Mean Platelet Volume 8.1 fL (7.4-10.4); Monocytes 3 % (0-10); Neutrophil 46 % (42-75); PLT Morphology Comment Appears Decreased; Platelet Count 60 thou/uL (130-400); RBC Distribution Width 12.4 % (11.5-14.5); Red Blood Cell (RBC) Count 2.89 mill/uL (4.70-6.10); White Blood Cell (WBC) Count 1.7 thou/uL (4.8-10.8)
[2017-12-11 16:37] VITALS: BP 128/62; TEMP 99.1
--- NOTE | 2017-12-11 17:52 | DIS ---
DATE OF ADMISSION: 12/05/2017 DATE OF DISCHARGE: 12/11/2017 ADMITTING DIAGNOSIS: Severe anemia of acute blood loss. SECONDARY DIAGNOSIS: Severe anemia of acute blood loss from gastrointestinal bleeding. DISCHARGE DIAGNOSIS: Severe anemia secondary to acute blood loss from gastrointestinal bleeding. SECONDARY DIAGNOSES: 1. Acute thrombocytopenia. 2. Acute leukopenia. 3. History of bacteremia from Streptococcus mutans, on vancomycin. 4. End-stage renal disease, on hemodialysis. 5. History of prostate cancer with metastatic disease. CONSULTANTS: Involved is Dr. Matthew Marie for Nephrology. HISTORY OF PRESENT ILLNESS: In brief, this is an 82-year-old -[place] male with a known hist ory of prostate cancer with metastatic disease, history of end-stage renal disease. The patient goes to her oncologist in [place] and he has been closely following up regarding his prostate cancer. Emmanuel carlisle with a known history of end-stage renal disease, was noted to have generalized weakness and wit h black stool and was noted to have a significant anemia. Patient received 2 units of packed red blo od cell transfusion and was closely monitored. Because of his persistent blood loss from GI, the [place] was seen by GI, Dr. Dakota Reyes and we will plan for EGD and colonoscopy. The patient underwen t this procedure which showed a large amount of retained stool and liquid stool which was incomplete colonoscopy, but it showed 89 mm rectal polyp which was not intervened due to increased risk of bleed ing as the patient had low platelets. There was moderate friability of the colonic mucosa and the re ctum upon passage of the colonoscopy as this was high risk for acute bleeding. The patient having a metastatic cancer disease which could have metastasized to the bone could possibly be contributing to pancytopenia. It was recommended that the patient to follow up with his oncologist as soon as possi ble. The patient had another 2 units of blood transfusion on the day of discharge along with a plate let transfusion as his platelets fell down to 20, which did come up to 60. Patient is discharged italo e and is advised to follow up with his Oncology. PHYSICAL EXAMINATION: On date of discharge: VITAL SIGNS: Blood pressure is 128/62, heart rate of 82, respiratory 18, saturation 97%. CARDIOVASCULAR: S1, S2 normal. No murmurs, rubs or gallops. LUNGS: Bilateral air entry was equal. No wheezing, no crackles. ABDOMEN: Soft, nontender. No guarding or rebound tenderness. Bowel sounds normal. MUSCULOSKELETAL: No calf tenderness. No pedal edema. No joint tenderness. No joint swelling. DISCHARGE MEDICATIONS: 1. Amlodipine 5 mg p.o. b.i.d. 2. Bicalutamide (Casodex) 50 mg p.o. daily. 3. Gabapentin 300 mg p.o. daily. 4. Hydralazine 50 mg p.o. daily. 5. Metoprolol 50 mg p.o. b.i.d. 6. Sodium bicarbonate 300 mg p.o. b.i.d. DISCHARGE INSTRUCTIONS: Continue activity as tolerated. Advised to follow up with Oncology within 1 week. Advised to follow up with hemodialysis as per the schedule. Advised to return back to the ER if the patient notices any further bleeding. I spent 35 minutes of this patient.
--- NOTE | 2018-01-09 13:12 | EKG ---
Test Reason : Blood Pressure : / mmHG Vent. Rate : 079 BPM Atrial Rate : 150 BPM P-R Int : 000 ms QRS Dur : 090 ms QT Int : 412 ms P-R-T Axes : 000 031 102 degrees QTc Int : 472 ms Atrial fibrillation Nonspecific ST and T wave abnormality , probably digitalis effect Prolonged QT Abnormal ECG Confirmed by CHIQUITA VOSS ([id number]), supervising editor trailer YADIEL HOWARD ([id number]) on 01/09/2018 1:11:30 PM Referred By: Confirmed By:CHIQUITA VOSS
== END 2017-12-11 17:14 | disposition home or self-care (01) | DRG 377 ==
LOC: ERS 13:49 → IMCU/EMU 18:12 → 2NO 12-06 22:46
PROVIDERS: ADMIT Internal Medicine; ATTEND Internal Medicine
PROC: 30233N1 Transfusion of Nonautologous Red Blood Cells into Peripheral Vein, Percutaneous Approach (ICD-10-PCS; 2017-12-05)
PROC: 30233R1 Transfusion of Nonautologous Platelets into Peripheral Vein, Percutaneous Approach (ICD-10-PCS; 2017-12-05)
PROC: 5A1D70Z Performance of Urinary Filtration, Intermittent, Less than 6 Hours Per Day (ICD-10-PCS; 2017-12-06)
PROC: 5A1D70Z Performance of Urinary Filtration, Intermittent, Less than 6 Hours Per Day (ICD-10-PCS; 2017-12-08)
PROC: 0W3P8ZZ Control Bleeding in Gastrointestinal Tract, Via Natural or Artificial Opening Endoscopic (ICD-10-PCS; principal; 2017-12-10)
PROC: 0DJD8ZZ Inspection of Lower Intestinal Tract, Via Natural or Artificial Opening Endoscopic (ICD-10-PCS; 2017-12-10)
PROC: 5A1D70Z Performance of Urinary Filtration, Intermittent, Less than 6 Hours Per Day (ICD-10-PCS; 2017-12-11)
DX: K31.811 Angiodysplasia of stomach and duodenum with bleeding (principal); N18.6 End stage renal disease; C79.51 Secondary malignant neoplasm of bone; D61.818 Other pancytopenia; I12.0 Hypertensive chronic kidney disease with stage 5 chronic kidney disease or end stage renal disease; I48.0 Paroxysmal atrial fibrillation; D62 Acute posthemorrhagic anemia; C61 Malignant neoplasm of prostate; K21.9 Gastro-esophageal reflux disease without esophagitis; K31.7 Polyp of stomach and duodenum; K62.1 Rectal polyp; K64.8 Other hemorrhoids; Z99.2 Dependence on renal dialysis; Z87.891 Personal history of nicotine dependence; Z79.899 Other long term (current) drug therapy
CPT/HCPCS: 36415; 36430; 71045; 80048; 80053; 80202; 82553; 84484; 85007; 85025; 85027; 85060; 86850; 86900; 86901; 90935; 93005; 96372; 96374; G0257; J0885; J2704; J3370; J7050; P9016; P9035

== ENCOUNTER 2017-12-18 10:12 | Day surgery (SDC) | payer MEDICARE ==
[2017-12-18] MEDS ORDERED: Epoetin 40,000 UNITS/ML VIAL ONE (10:17)
[2017-12-18 10:30] VITALS: BP 131/74; TEMP 97.6
[2017-12-18] MEDS ORDERED: Epoetin 40,000 UNITS/ML VIAL SC SCH (10:30)
== END 2017-12-18 10:39 | disposition home or self-care (01) ==
LOC: ONC/OP 10:12
PROVIDERS: ATTEND Internal Medicine Nephrology
DX: I12.0 Hypertensive chronic kidney disease with stage 5 chronic kidney disease or end stage renal disease (principal); N18.6 End stage renal disease; D63.1 Anemia in chronic kidney disease; C61 Malignant neoplasm of prostate; C79.51 Secondary malignant neoplasm of bone; K21.9 Gastro-esophageal reflux disease without esophagitis; I48.0 Paroxysmal atrial fibrillation; Z99.2 Dependence on renal dialysis; Z98.890 Other specified postprocedural states
CPT/HCPCS: 96372; J0885

== ENCOUNTER 2017-12-28 08:29 | Day surgery (SDC) | payer MEDICARE ==
[2017-12-28] MEDS ORDERED: Sodium Chloride 0.9% 20 ML ONE (09:20)
[2017-12-28 16:28] VITALS: BP 155/73; TEMP 97.9
== END 2017-12-28 16:00 | disposition home or self-care (01) ==
LOC: ONC/OP 08:29
PROVIDERS: ATTEND Internal Medicine Nephrology
PROC: 30233N1 Transfusion of Nonautologous Red Blood Cells into Peripheral Vein, Percutaneous Approach (ICD-10-PCS; principal; 2017-12-28)
DX: N18.6 End stage renal disease (principal); D63.1 Anemia in chronic kidney disease; Z79.899 Other long term (current) drug therapy
CPT/HCPCS: 36415; 36430; 86850; 86900; 86901; A4216; P9016

== ENCOUNTER 2018-01-08 10:51 | Day surgery (SDC) | payer MEDICARE ==
[2018-01-08] MEDS ORDERED: Epoetin 40,000 UNITS/ML VIAL ONE (10:56)
[2018-01-08 11:10] VITALS: BP 134/61; TEMP 98
[2018-01-08] MEDS ORDERED: Epoetin 40,000 UNITS/ML VIAL SC SCH (11:15)
== END 2018-01-08 11:10 | disposition home or self-care (01) ==
LOC: ONC/OP 10:51
PROVIDERS: ATTEND Internal Medicine Nephrology
DX: I12.0 Hypertensive chronic kidney disease with stage 5 chronic kidney disease or end stage renal disease (principal); N18.6 End stage renal disease; D63.1 Anemia in chronic kidney disease; K21.9 Gastro-esophageal reflux disease without esophagitis; I48.0 Paroxysmal atrial fibrillation; C61 Malignant neoplasm of prostate; C79.51 Secondary malignant neoplasm of bone; Z79.899 Other long term (current) drug therapy; Z99.2 Dependence on renal dialysis; Z87.891 Personal history of nicotine dependence; Z98.890 Other specified postprocedural states
CPT/HCPCS: 96372; J0885

== ENCOUNTER 2018-01-10 10:02 | Inpatient (IN) | payer MEDICARE ==
[2018-01-10 12:30] LABS: Hemoglobin 7.4 g/dL (14.0-18.0)
[2018-01-10 12:32] LABS: Mean Corpuscular HGB CONC 33.6 g/dL (32.0-36.0); Mean Corpuscular Hemoglobin 30.1 pg (27.0-31.0); Mean Corpuscular Volume 89.5 fl (80.0-94.0); Mean Platelet Volume 13.7 fL (7.4-10.4); Platelet Count 2 thou/uL (130-400); RBC Distribution Width 11.7 % (11.5-14.5); Red Blood Cell (RBC) Count 2.45 mill/uL (4.70-6.10); White Blood Cell (WBC) Count 1.6 thou/uL (4.8-10.8)
[2018-01-10 12:43] LABS: Band 6 % (5-11); Eosinophils 2 % (0-10); Lymphocytes 50 % (21-51); MDiff Complete? YES; Metamyelocyte 2 % (0-0); Monocytes 12 % (0-10); Neutrophil 26 % (42-75); PLT Morphology Comment Appears Decreased
[2018-01-10] MEDS: Sodium Chloride 0.9% 40 ML ONE ×2 (17:51→21:08)
[2018-01-10] MEDS ORDERED: hydrALAZINE 20 MG/ML VIAL SLOW IVP SCH (18:00)
[2018-01-10] MEDS ORDERED: HYDROcodone/Acetaminophen 5/325 mg Tablet PO PRN (20:27)
[2018-01-10] MEDS ORDERED: Acetaminophen 325 MG TAB PO PRN (20:27)
[2018-01-10] MEDS ORDERED: Diltiazem 125 MG in Sodium Chloride 0.9% 100 ML IVPB SCH (20:45)
[2018-01-10] MEDS ORDERED: Heparin 5,000 UNITS/ML VIAL SC SCH (21:00)
[2018-01-10 21:16] LABS: Hemoglobin 10.2 g/dL (14.0-18.0); Mean Corpuscular HGB CONC 35.2 g/dL (32.0-36.0); Mean Corpuscular Hemoglobin 31.4 pg (27.0-31.0); Mean Corpuscular Volume 89.2 fl (80.0-94.0); Mean Platelet Volume 7.5 fL (7.4-10.4); Platelet Count 62 thou/uL (130-400); Red Blood Cell (RBC) Count 3.26 mill/uL (4.70-6.10); White Blood Cell (WBC) Count 1.8 thou/uL (4.8-10.8)
[2018-01-10 21:29] LABS: ALT (SGPT) 11 U/L (8-55); AST (SGOT) 18 U/L (5-34); Albumin 3.3 g/dL (3.4-4.8); Alkaline Phosphatase 138 U/L (40-150); Anion Gap 14 mmol/L (10-20); BUN (Urea Nitrogen) 25 mg/dL (8.4-25.7); Bilirubin, Total 1.6 mg/dL (0.2-1.2); Calc. Creatinine Clearance 0 mL/min (70-130); Calcium 8.6 mg/dL (7.8-10.44); Carbon Dioxide 30 mmol/L (23-31); Chloride 97 mmol/L (98-107); Estimated GFR-MDRD 23; Globulin 4.6 g/dL (2.4-3.5); Glucose 126 mg/dL (83-110); Potassium 3.4 mmol/L (3.5-5.1); Protein, Total 7.9 g/dL (5.8-8.1); Sodium 138 mmol/L (136-145)
[2018-01-10 21:37] LABS: Acanthocytes SLIGHT = 1-5 cells (100X) (None Seen); Band 9 % (5-11); Eosinophils 2 % (0-10); Lymphocytes 44 % (21-51); MDiff Complete? YES; Monocytes 13 % (0-10); Neutrophil 28 % (42-75); PLT Morphology Comment Appears Decreased; Reactive Lymphocytes 3 % (0-10); Spherocytes SLIGHT = 1-5 cells (100X) (None Seen)
[2018-01-10] MEDS: Famotidine/PF 20 mg/2ml Vial SLOW IVP SCH (22:42)
[2018-01-11 01:00] VITALS: BMI 27.2
--- NOTE | 2018-01-11 04:12 | HP ---
CHIEF COMPLAINT: Palpitation. HISTORY OF PRESENT ILLNESS: He is an 82-year-old man with history of hypertension, anemia, on dialys is, and he underwent dialysis today. After dialysis, he got some blood transfusion. He has some tac hycardia, palpitations. Heart with AFib with RVR 130. No chest pain. No shortness of breath. Taty use of AFib with RVR, he was transferred to the telemetry floor. On further examination, he had no c hest pain, no shortness of breath, no syncopal episode, no dizziness. No history of AFib in the past . PAST MEDICAL HISTORY: Hypertension, ESRD. HOME MEDICATIONS: Amlodipine 5 mg daily, calcium acetate 675, Cardura 4 mg, furosemide 40 mg, hydral azine 100 mg, metoprolol 50 mg, sodium bicarbonate 325. SOCIAL HISTORY: Nonsmoker, nonalcoholic, no drug use. FAMILY HISTORY: Noncontributory. REVIEW OF SYSTEMS: He denies any headache, any dizziness, any syncopal episode. ENT: Denies any ea r, nose, throat problem. Respiratory: Denies any cough. No shortness of breath. Cardiovascular: Denies any chest pain, but he does have palpitations. Abdomen: No nausea, no vomiting, no diarrhea. Skin: No rash. Neurologic: No headache. No dizziness, syncopal episode. PHYSICAL EXAMINATION: GENERAL: This is an elderly man lying in the bed, not in distress. VITAL SIGNS: Pulse 120, AFib with RVR, blood pressure 130/80, respirations 20. HEENT: Head, atraumatic and normocephalic. Pupils are round and reactive. Extraocular movements in tact. Ears and throat are normal. Tongue mucosa moist. NECK: Supple. No JVD, no thyromegaly, no carotid bruit. CHEST: Normal vesicular breathing. No added sound. CARDIOVASCULAR: S1 and S2 audible. She has tachycardia. Heart rate irregular. No S3, no S4, no mu rmur, no gallop. ABDOMEN: Soft. Bowel sounds audible. EXTREMITIES: No pedal edema. CENTRAL NERVOUS SYSTEM: No focal deficit. LABORATORY DATA: Old lab shows ferritin 1866, hemoglobin 6.8, . Calcium 8.9, phosphorus 4.1, B UN 53. ASSESSMENT AND PLAN: 1. Atrial fibrillation with rapid ventricular rate. He will be started on Cardizem 10 mg bolus and drip 5-10 mL titrate to a heart rate less than 100. 2. We will get a TSH, echocardiogram. 3. Anemia. We will continue monitoring it. 4. Chronic kidney disease. We will continue to monitor. He has to do dialysis and DVT prophylaxis will be SCDs. No heparin thrombocytopenia.
[2018-01-11] MEDS: Famotidine/PF 20 mg/2ml Vial SLOW IVP SCH ×2 (08:01→20:42)
--- NOTE | 2018-01-11 16:11 | CON ---
DATE OF CONSULTATION: 01/11/2018 PRIMARY HUMAN RESOURCES DISTRICT MANAGER: Lit Vega M.D. REASON FOR CONSULTATION: Atrial fibrillation, rapid ventricular response. HISTORY OF PRESENT ILLNESS: Mr. Beltran is a pleasant 82-year-old gentleman who com es to the hospital for palpitation. He is chronically losing blood from thrombocytopenia of chronic disease as well as friable colon apparently and he gets blood transfusions about every other week. Isaías quinonez was in Hematology/Oncology and started having palpitations. He was transferred over to the [facility] for this and was found to be in AFib, RVR. He was started on diltiazem drip for rate control and C ardiology is being consulted for this. Currently, Mr. Beltran feels back to normal. He is not feeli ng his tachycardia anymore. His heart rate is in the 80s to low 100s. PAST MEDICAL HISTORY: 1. Hypertension. 2. Metastatic prostate cancer. 3. Gastroesophageal reflux disease. 4. End-stage renal disease on hemodialysis. 5. Paroxysmal atrial fibrillation. 6. Chronic anemia, thought to be from GI losses. 7. Thrombocytopenia. PAST SURGICAL HISTORY: 1. Laparoscopic cholecystectomy. 2. Back surgery x3. 3. Hernia repair. 4. Shunt in the left upper extremity. SOCIAL HISTORY: Former smoker. No alcohol or drugs. FAMILY HISTORY: Noncontributory. REVIEW OF SYSTEMS: A 12-point review of systems was done and is all negative unless stated in the hi story of present illness. OUTPATIENT MEDICATIONS: Include, 1. Hydralazine 50 mg b.i.d. 2. Sodium bicarbonate. 3. Multivitamin daily. 4. Metoprolol 50 mg p.o. b.i.d. 5. Gabapentin 300 mg at bedtime. 6. Epogen. 7. Tums. 8. Bicalutamide 50 mg. 9. Amlodipine 5 mg at bedtime. ALLERGIES: No known drug allergies. PHYSICAL EXAMINATION: VITAL SIGNS: Temperature 98.6, pulse 75, respiration rate 16, satting 100% on room air, blood pressu re 109/58. GENERAL: Awake, alert, oriented x3, in no distress. HEENT: Normocephalic, atraumatic. NECK: Supple. LUNGS: Clear. CARDIOVASCULAR: S1, S2. No S3, S4. Irregularly irregular heart rate. There is a grade 2/6 systoli c murmur in the upper sternal border. ABDOMEN: Soft. Positive bowel sounds. EXTREMITIES: Trace edema. SKIN: Warm and dry. LABORATORY WORK: Reviewed. White count on arrival at 1.6 up to 1.8, hemoglobin of 7.4 before transf usion up to 10.2, platelet count was 2, went up to 62 after blood transfusion. Chemistries with a cr eatinine of 3.18, GFR of 23, potassium was 3.4, albumin of 3.3. EKG was reviewed, AFib, RVR. Echocardiogram was reviewed earlier today with EF of 60%-65% with LVH, mild left atrium and mild MR a nd TR. ASSESSMENT AND PLAN: 1. Paroxysmal atrial fibrillation. 2. Pancytopenia including thrombocytopenia, platelets down to 7000. 3. Chronic anemia, thought to be from blood loss. 4. End-stage renal disease. 5. Hypokalemia. 6. Metastatic prostate cancer. PLAN: 1. He is not a good candidate for any anticoagulation or any aspirin given his severe thrombocytopen ia and his ongoing anemia requiring blood transfusion periodically. We will opt for a rate control s trategy. He is already on diltiazem drip and this is controlling his rate quite well. We will switc h his diltiazem drip to p.o. and hopefully he will be able to be discharged home tomorrow if he remai ns rate control. 2. Would recommend against any anticoagulation or antiplatelet therapy for him given his anemia and thrombocytopenia. Thank you for letting us participate in the care of this patient. We will follow.
--- NOTE | 2018-01-11 20:01 | CON ---
DATE OF CONSULTATION: 01/11/2018 CONSULTING PHYSICIAN: Dejuan Johnson /Fidelina REQUESTING PHYSICIAN: Dr. Jose. REASON FOR CONSULTATION: The need for maintenance hemodialysis. IMPRESSION: 1. End-stage renal disease on Sunday, , and Sunday schedule. 2. Atrial fibrillation with rapid ventricular response. 3. Severe thrombocytopenia and anemia, status post transfusions of platelets and red blood cells. PLAN: The patient to continue with hemodialysis on a Sunday, , Sunday schedule. the vilma ent is still here by tomorrow, we will undergo hemodialysis. HISTORY OF PRESENT ILLNESS: History is that of an 82-year-old gentleman with history of end-stage re nal disease, hemodialysis dependent and anemia, status post recurrent blood transfusions in the benji xt of bone marrow failure, status post metastatic prostatic carcinoma treatment, hypertension, dyslip idemia. The patient was sent over as status post dialysis to receive a blood transfusion due to hemo globin of #6 status post transfusion. The patient was noted to have atrial fibrillation with rapid v entricular response, necessitating admission. Otherwise, the patient would have being discharged as an outpatient, status post transfusion. PAST MEDICAL HISTORY: As documented above. MEDICATIONS: Reviewed as documented in [employer]. SOCIAL HISTORY: . No alcohol, no tobacco, no illicit drug use. FAMILY HISTORY: Not significantly related to presenting illness. REVIEW OF SYSTEMS: As documented in the body of the history. Other systems were reviewed and found not to be significantly related to presenting illness. PHYSICAL EXAMINATION: GENERAL: The patient was found not to be in any obvious distress. VITAL SIGNS: Afebrile with temperature 98.3, pulse 93, respiratory rate of 18, O2 sat 100%, blood pr essure 136/65. HEENT: Unremarkable. Moist oral mucosa. Neck: Supple, no conjunctival injection or icterus. CARDIOVASCULAR SYSTEM: First and second heart sounds were heard. RESPIRATORY SYSTEM: Clear to auscultation. DIGESTIVE SYSTEM: Revealed a benign abdomen with positive bowel sounds. EXTREMITIES: No peripheral edema. SKIN: No new gross rash. LYMPHATICS: No peripheral lymphadenopathy. SUMMARY: An 82-year-old gentleman with end-stage renal disease, hemodialysis dependent, who presente d here having been noted to develop atrial fibrillation as atrial fibrillation with rapid ventricular response in the context of blood transfusions. Thank you for this consultation. We will follow with you.
[2018-01-11] MEDS: Diltiazem HCl SR 60 mg Capsule PO SCH (20:41)
[2018-01-12] MEDS: Diltiazem HCl SR 60 mg Capsule PO SCH (09:12)
--- NOTE | 2018-01-12 11:20 | PDOC.PN ---
- Subjective Encounter Start Date: 01/11/18 Encounter Start Time: 11:00 Patient is seen today, alert and oriented. He has cardizem drip going now, transferd from infusion center with Afib rvr - Objective Resuscitation Status: Resuscitation Status FULL:Full Resuscitation MAR Reviewed: Yes Vital Signs & Weight: Vital Signs (12 hours) Temp Pulse Resp BP Pulse Ox 01/12/18 08:00 97.4 F L 89 18 138/65 99 01/12/18 04:00 98.2 F 83 18 135/65 96 01/12/18 00:00 98.0 F 87 18 116/58 L 99 Weight Weight 181 lb 1.6 oz I&O: 01/11/18 01/12/18 01/13/18 06:59 06:59 06:59 Intake Total 950 960 Output Total 0 Balance 950 960 Result Diagrams: 01/10/18 20:49 01/10/18 20:49 Radiology Reviewed by me: Yes EKG Reviewed by me: Yes Phys Exam - Physical Examination HEENT: PERRLA, moist MMs Neck: no nodes, no JVD Respiratory: no wheezing, no rales Cardiovascular: RRR, no significant murmur Gastrointestinal: soft, non-tender Musculoskeletal: no edema, pulses present Dx/Plan (1) Atrial fibrillation with RVR Code(s): I48.91 - UNSPECIFIED ATRIAL FIBRILLATION Status: Acute Comment: Will continue with Cardizem, consult Cardiology, pt had recent Echo. No chest pain. (2) Anemia Code(s): D64.9 - ANEMIA, UNSPECIFIED Status: Acute Qualifiers: Chronic kidney disease stage: on chronic dialysis Comment: Hemoglobin stable today. GI blood loss vs. secondary to malignancy. (3) Symptomatic anemia Code(s): D64.9 - ANEMIA, UNSPECIFIED Status: Acute Comment: PRBC given at transfucion center; (4) Thrombocytopenia Code(s): D69.6 - THROMBOCYTOPENIA, UNSPECIFIED Status: Acute Comment: 1 pack platelet given (5) ESRD (end stage renal disease) on dialysis Code(s): N18.6 - END STAGE RENAL DISEASE; Z99.2 - DEPENDENCE ON RENAL DIALYSIS Status: Chronic Comment: dialysis per nephrology service (6) Hypertension Code(s): I10 - ESSENTIAL (PRIMARY) HYPERTENSION Status: Chronic Comment: stable (7) Prostate cancer metastatic to bone Code(s): C61 - MALIGNANT NEOPLASM OF PROSTATE; C79.51 - SECONDARY MALIGNANT NEOPLASM OF BONE Status: Chronic - Plan cont current plan of care, plan discussed w/ family, PT/OT, social work faculty member, respiratory therapy, incentive spirometry, DVT proph w/heparin * . Review of Systems - Review of Systems Respiratory: negative: Cough, Dry, Shortness of Breath, Hemoptysis, SOB with Excertion, Pleuritic Pain, Sputum, Wheezing Cardiovascular: negative: chest pain, palpitations, orthopnea, paroxysmal nocturnal dyspnea, edema, light headedness, other Gastrointestinal: negative: Nausea, Vomiting, Abdominal Pain, Diarrhea, Constipation, Melena, Hematochezia, Other Musculoskeletal: negative: Neck Pain, Shoulder Pain, Arm Pain, Back Pain, Hand Pain, Leg Pain, Foot Pain, Other Skin: negative: Rash, Lesions, Tru, Bruising, Other - Medications/Allergies Allergies/Adverse Reactions: Allergies Allergy/AdvReac Type Severity Reaction Status Date / Time No Known Allergies Allergy Verified 01/10/18 21:27 Medications: Current Medications Acetaminophen (Tylenol) 650 mg PO Q4H PRN PRN Reason: Headache/Fever or Pain Hydrocodone Bitart/Acetaminophen ([place] 5/325) 1 tab PO Q4H PRN PRN Reason: Moderate Pain (4-6) Diltiazem HCl (Cardizem Sr) 60 mg PO BID COUNTS INCLUDE 234 BEDS AT THE [facility] Last Admin: 01/12/18 09:12 Dose: 60 mg Famotidine (Pepcid) 20 mg SLOW IVP Q12HR COUNTS INCLUDE 234 BEDS AT THE [facility] Last Admin: 01/11/18 20:42 Dose: 20 mg Sodium Chloride (Flush - Normal Saline) 10 ml IVF Q12HR COUNTS INCLUDE 234 BEDS AT THE [facility] Last Admin: 01/12/18 09:12 Dose: 10 ml Sodium Chloride (Flush - Normal Saline) 10 ml IVF PRN PRN PRN Reason: Saline Flush
[2018-01-12] MEDS: Famotidine/PF 20 mg/2ml Vial SLOW IVP SCH (12:11)
--- NOTE | 2018-01-12 14:43 | DIS ---
DATE OF ADMISSION: 01/10/2018 DATE OF DISCHARGE: 01/12/2018 ADMITTING DIAGNOSIS: Atrial fibrillation with rapid ventricular rate. DISCHARGE DIAGNOSIS: Atrial fibrillation with rapid ventricular rate. SECONDARY DIAGNOSES: 1. Anemia. 2. Thrombocytopenia. 3. End-stage renal disease. 4. Metastatic prostate cancer. 5. Hypertension. CONSULTANTS INVOLVED IN THIS CARE: Dr. Brown from Cardiology, and Nephrology for hemodialysis. HISTORY OF PRESENT ILLNESS AND HOSPITAL COURSE: In brief, this is an 82-year-old -[place] ma le with a known history of hypertension, anemia, and on hemodialysis for end-stage renal disease. He was having some blood transfusion for his anemia and he developed tachycardia followed by palpitatio ns and his heart rate was noted to be 130 with no shortness of breath or no chest pains. So, the pat ient was transferred to telemetry floor and was started on Cardizem drip and Cardiology was consulted . As the patient was having severe anemia and thrombocytopenia, it was not recommended to start him on any anticoagulants per Cardiology. So, the patient was started on Cardizem drip and slowly change d to oral p.o. Cardizem. The patient was doing fine and was discharged home in stable condition. Th e patient is advised to continue on the p.o. Cardizem for rate control. PHYSICAL EXAMINATION: VITAL SIGNS: Blood pressure is 132/68, heart rate is 85, respiratory rate of 17, saturation 98% on r oom air. CARDIOVASCULAR: S1 and S2, normal. Irregularly irregular rhythm. LUNGS: Bilateral air entry was equal. No wheezing, no crackles. ABDOMEN: Soft, nontender, no guarding, no rebound tenderness. Bowel sounds normal. MUSCULOSKELETAL: No calf tenderness, no pedal edema, no joint tenderness, no joint swelling. DISCHARGE MEDICATIONS: 1. Bicalutamide. 2. Casodex. 3. Epoetin mundo. 4. Gabapentin 300 mg p.o. at bedtime. 5. Metoprolol 50 mg p.o. b.i.d. 6. Sodium bicarbonate 320 mg p.o. b.i.d. 7. Hydralazine 50 mg p.o. daily. NEW DISCHARGE MEDICATION: Cardizem 60 mg p.o. b.i.d. STOPPED MEDICATION: Amlodipine 10 mg p.o. daily. DISCHARGE INSTRUCTIONS: Continue activity as tolerated. Advised to follow up with the primary care physician in 1-2 weeks. Advised to follow up with Cardiology in 1 week. Advised continue with a beata al diet and report to the ER for any worsening heart rate. I spent 35 minutes with this patient.
--- NOTE | 2018-01-12 16:57 | PRG ---
DATE OF SERVICE: 01/12/2018 SUBJECTIVE: Patient noted with the following. PHYSICAL EXAMINATION: VITAL SIGNS: Afebrile with temperature 97.2, pulse 85, respiratory rate of 17, O2 sat 98% with blood pressure 132/68. HEENT: Unremarkable. CARDIOVASCULAR SYSTEM: First and second heart sounds were heard. RESPIRATORY SYSTEM: Clear to auscultation. DIGESTIVE SYSTEM: Revealed a benign abdomen. EXTREMITIES: No peripheral edema. IMPRESSION: 1. Atrial fibrillation with rapid ventricular response. 2. Severe anemia with recurrent severe thrombocytopenia. 3. Thrombocytopenia. PLAN: 1. The patient to be dialyzed here today. We will defer as the patient is due for dialysis today. 2. We will continue with the outpatient dialysis, status post discharge. 3. Further management to be dependent on the clinical course.
[2018-01-12 18:43] VITALS: BP 143/69; TEMP 97.8
--- NOTE | 2018-01-15 18:07 | EKG ---
Test Reason : STAT Blood Pressure : / mmHG Vent. Rate : 118 BPM Atrial Rate : 170 BPM P-R Int : 000 ms QRS Dur : 080 ms QT Int : 348 ms P-R-T Axes : 000 041 -30 degrees QTc Int : 487 ms Atrial fibrillation with rapid ventricular response with premature ventricular or aberrantly conducte d complexes Nonspecific ST and T wave abnormality , probably digitalis effect Abnormal ECG When compared with ECG of 05-DEC-2017 14:13, Vent. rate has increased BY 39 BPM Confirmed by Michell HE ([id number]) on 01/15/2018 6:07:09 PM Referred By: Confirmed By:Michell HE
== END 2018-01-12 18:48 | disposition home or self-care (01) | DRG 308 ==
LOC: ONC/OP 10:02 → INTOOBSV 20:20 → OBSVTOIN 20:20 → 2NO 20:20
PROVIDERS: ADMIT Family Medicine; ATTEND Family Medicine
PROC: 30233R1 Transfusion of Nonautologous Platelets into Peripheral Vein, Percutaneous Approach (ICD-10-PCS; 2018-01-10)
PROC: 30233N1 Transfusion of Nonautologous Red Blood Cells into Peripheral Vein, Percutaneous Approach (ICD-10-PCS; 2018-01-10)
PROC: 5A1D70Z Performance of Urinary Filtration, Intermittent, Less than 6 Hours Per Day (ICD-10-PCS; principal; 2018-01-12)
DX: I48.0 Paroxysmal atrial fibrillation (principal); N18.6 End stage renal disease; I12.0 Hypertensive chronic kidney disease with stage 5 chronic kidney disease or end stage renal disease; D61.818 Other pancytopenia; C79.51 Secondary malignant neoplasm of bone; I48.91 Unspecified atrial fibrillation; Y92.239 Unspecified place in hospital as the place of occurrence of the external cause; C61 Malignant neoplasm of prostate; K21.9 Gastro-esophageal reflux disease without esophagitis; D50.0 Iron deficiency anemia secondary to blood loss (chronic); E87.6 Hypokalemia; D63.1 Anemia in chronic kidney disease; Z99.2 Dependence on renal dialysis
CPT/HCPCS: 36415; 36430; 80053; 84443; 85025; 86850; 86900; 86901; 90935; 93005; 93010; 93306; 96372; 96375; 99211; A4216; G0257; G0463; J0360; J0885; J7050; P9016; P9035; S0028

== ENCOUNTER 2018-01-19 06:46 | Inpatient (IN) | payer MEDICARE ==
[2018-01-19] MEDS ORDERED: Acetaminophen 500 MG TAB ONE (07:28)
[2018-01-19 07:36] LABS: Hemoglobin 5.6 g/dL (14.0-18.0); Mean Corpuscular HGB CONC 34.1 g/dL (32.0-36.0); Mean Corpuscular Hemoglobin 30.8 pg (27.0-31.0); Mean Corpuscular Volume 90.4 fl (80.0-94.0); Mean Platelet Volume 13.2 fL (7.4-10.4); Platelet Count 11 thou/uL (130-400); RBC Distribution Width 11.8 % (11.5-14.5); Red Blood Cell (RBC) Count 1.82 mill/uL (4.70-6.10)
[2018-01-19 07:37] LABS: Reflex for Review?? YES
--- NOTE | 2018-01-19 07:38 | RAD ---
CHEST 1 VIEW: HISTORY: Fever. Dyspnea. Renal failure. FINDINGS: No comparison. FINDINGS: Cardiac silhouette magnified by projection. Pulmonary vasculature engorged with widespread reticulon odular interstitial prominence. The patient is rotated rightward. Slight elevation left hemidiaphra gm. Calcified granulomata are consistent with healed granulomatous disease. ekg monitor leads o verlie the chest. IMPRESSION: 1. Pulmonary vascular congestion without florid edema or lobar consolidation. 2. Atherosclerosis. POS: [facility]
[2018-01-19 07:43] LABS: ALT (SGPT) 10 U/L (8-55); AST (SGOT) 18 U/L (5-34); Albumin 3.2 g/dL (3.4-4.8); Alkaline Phosphatase 114 U/L (40-150); Anion Gap 16 mmol/L (10-20); BUN (Urea Nitrogen) 63 mg/dL (8.4-25.7); Bilirubin, Total 0.7 mg/dL (0.2-1.2); Calc. Creatinine Clearance 0 mL/min (70-130); Calcium 8.5 mg/dL (7.8-10.44); Carbon Dioxide 30 mmol/L (23-31); Chloride 98 mmol/L (98-107); Estimated GFR-MDRD 10; Globulin 4.4 g/dL (2.4-3.5); Glucose 127 mg/dL (83-110); Potassium 3.8 mmol/L (3.5-5.1); Protein, Total 7.6 g/dL (5.8-8.1); Sodium 140 mmol/L (136-145)
[2018-01-19 07:48] LABS: CKMB 0.1 ng/mL (0-6.6); Troponin I 0.033 ng/mL (< 0.028)
[2018-01-19] MEDS ORDERED: Diltiazem 125 MG in Sodium Chloride 0.9% 100 ML IVPB SCH (08:00)
[2018-01-19] MEDS ORDERED: Piperacillin/Tazobactam 4.5 GM VIAL ONE (08:02)
[2018-01-19] MEDS ORDERED: Diltiazem 125 MG/25 ML ONE (08:07)
--- NOTE | 2018-01-19 08:52 | RAD ---
LEFT HIP 2 VIEWS: HISTORY: Left hip pain. FINDINGS: Mild osteoarthritis. No acute fracture, dislocation, or aggressive osseous erosions. Postoperative changes lumbar spine. Phleboliths project over the pelvis. More prominent degenerative changes invo lve the sacroiliac joint and pubic symphysis. IMPRESSION: Osteoarthritis. No acute osseous abnormalities are demonstrated. POS: [facility]
--- NOTE | 2018-01-19 08:53 | RAD ---
PELVIS 1 VIEW: HISTORY: Pelvic pain. Weakness. FINDINGS: Sacral alae are intact. Pub rings show no displaced fractures. Prominent degenerative changes of th e sacroiliac joints and pubic symphysis. Mild degenerative change of the hips. The patient is rotat ed leftward. No displaced fractures are apparent. Osseous structures are demineralized. Postoperat cindy changes lumbar spine. IMPRESSION: 1. Osteoporosis. Chronic-type findings. 2. No displaced fractures are evident. POS: [facility]
[2018-01-19] MEDS ORDERED: Bisacodyl 5 MG TAB PO PRN (10:45)
[2018-01-19] MEDS ORDERED: Vancomycin HCl 1 GM in Premix Bag 1 BAG IVPB SCH ×2 (11:15→11:30)
[2018-01-19] MEDS ORDERED: Vancomycin HCl 750 MG in Sodium Chloride 0.9% 250 ML 250 ML IVPB SCH (11:30)
[2018-01-19] MEDS ORDERED: Vancomycin HCl 500 MG in Sodium Chloride 0.9% 100 ML IVPB SCH (11:30)
[2018-01-19] MEDS ORDERED: HOLD VANCOMYCIN FOR LEVEL >20 FS SCH (11:30)
[2018-01-19] MEDS ORDERED: Vancomycin HCl 1.25 GM in Sodium Chloride 0.9% 250 ML 250 ML IVPB SCH (11:30)
--- NOTE | 2018-01-19 12:15 | HP ---
PRIMARY CARE PROVIDER: Sly Franz M.D. CHIEF COMPLAINT: Weakness. HISTORY OF PRESENT ILLNESS: Mr. Beltran is a pleasant 82-year-old gentleman who was seen at [facility] on 01/19/2018. He is a poor historian. History was obtained from discussi on with his , discussion with the emergency room physician and review of medical records. Mr. Beltran has end-stage renal disease and is dependent on hemodialysis. Yesterday, he reportedly h ad a fall. He fell onto his left side on the ground while getting into home. There is no history of head trauma. He was reportedly okay after that. Today morning, he was getting ready to go for dialysis when his noticed that he had altered ment ation. He was slow to respond. He was therefore brought to the emergency room. The patient reports that since yesterday he has been feeling "shakes". On the way to the emergency room, the patient was found to be in atrial fibrillation with rapid ventr icular response. In the emergency room, the patient was found to be febrile. REVIEW OF SYSTEMS: Could not be completed secondary to patient's altered mental status. PAST MEDICAL HISTORY: End-stage renal disease on hemodialysis, the patient reportedly had atrial fib rillation during a previous hospitalization, prostate cancer with metastasis to the bones and pancyto penia. PAST SURGICAL HISTORY: AV fistula placement. FAMILY HISTORY: No family history of coronary artery disease. SOCIAL HISTORY: No history of tobacco use, alcohol use or recreational drug use. ALLERGIES: No known drug allergies. CURRENT MEDICATIONS: Amlodipine 5 mg daily, calcium 667 mg 3 times a day, Lasix 40 mg daily, gabapen tin 300 mg at bedtime, hydralazine 100 mg 2 times a day, metoprolol tartrate 50 mg daily, vitamin D3 2000 units daily, bicalutamide 50 mg daily, doxazosin 16 mg at bedtime, Epogen 1 mL 3 times a week, s odium bicarbonate 325 mg 2 times a day. PHYSICAL EXAMINATION: GENERAL: Mr. Beltran is sleepy, but arousable, not in acute distress. VITAL SIGNS: Blood pressure is 120/79, pulse is 124, his breathing at rate of 15 and saturating 100% on room air. T-max in the emergency room was 102.8 degrees Fahrenheit. EYES: No scleral icterus. The patient has conjunctival pallor. ENT: Moist mucosal membranes. No oropharyngeal erythema or exudates. NECK: Supple, nontender, trachea is midline. RESPIRATORY: Accessory muscles of breathing are not active. Chest wall movements are symmetric bila terally. LUNGS: Clear to auscultation without wheeze, rhonchi or crepitations. CARDIOVASCULAR: S1 and S2 are heard, tachycardic and irregular. Peripheral pulses palpable. No car otid bruit. No pericardial rub. ABDOMEN: Soft, nontender, bowel sounds are heard, no hepatomegaly, no splenomegaly. NEUROLOGIC: Full neurologic examination not possible secondary to the patient's noncooperation. The re is no facial droop. Deep tendon reflexes are 2+, plantar reflexes downgoing bilaterally. SKIN: No rashes. The patient has bilateral lower extremity edema. MUSCULOSKELETAL: Power is 5/5 in all 4 extremities. LYMPHATIC: No cervical lymphadenopathy. PSYCHIATRY: Unable to assess orientation to place or time. The patient is oriented to person and brownlee s a normal mood. LABORATORY DATA: Mr. Beltran's labs and investigations were reviewed. I reviewed his electrocardiog sheri, which shows atrial fibrillation with rapid ventricular response, no ST changes to suggest an acu te coronary syndrome. I also reviewed his chest x-ray, which shows mild pulmonary vascular congestio n. X-rays of the left hip did not show any acute osseous abnormalities. X-ray of the pelvis did not show any displaced fractures. He has osteoporosis. He has white count of 2000, last known white co unt 1900 on 11/13/2017; hemoglobin 5.6, last known hemoglobin 5.8 on 11/13/2017; thrombocytopenia wit h platelet count of 11,000, last known platelet count 10,000 on 11/13/2017; normal electrolytes; elev ated blood urea nitrogen of 63; elevated creatinine of 5.34; normal lactic acid; indeterminate tropon in I of 0.033 and decreased albumin of 3.2. LFTs are otherwise unremarkable. ASSESSMENT AND PLAN: Mr. Beltran is a pleasant 82-year-old gentleman who was seen at [facility] on 01/19/2018. His problem list includes: 1. Sepsis: Mr. Beltran's presentation meets the criteria for sepsis, source of infection likely blo odstream or urine. Urinalysis is pending at this time. The patient has received vancomycin and Zosy n in the emergency room, which I will continue. 2. Atrial fibrillation with rapid ventricular response: The patient appears to have known atrial fi brillation. He is currently on a Cardizem drip. He will be admitted to the hospital for monitoring as well as titration of Cardizem drip. Cardiology service will be consulted for opinion and help wit h management. 3. End-stage renal disease, on dialysis. The emergency room physician has discussed his case with h is solar installer pv, who will be following for dialysis. 4. Pancytopenia: Likely secondary to metastatic prostate cancer. He will receive packed RBCs and p latelets with his dialysis, according to his solar installer pv. Code status was discussed. The patient is FULL CODE. His is the surrogate decision maker. Many thanks for allowing me to participate in your patient's care. Please feel free to contact me wi th any questions or concerns. LEVEL OF RISK: High. LEVEL OF COMPLEXITY: High.
[2018-01-19] MEDS: Acetaminophen 325 MG TAB PO PRN ×2 (12:25→16:34)
[2018-01-19] MEDS ORDERED: Prevnar 13-Val Conj/PF 0.5 ML SYRINGE IM ONE (13:15)
[2018-01-19 14:42] LABS: HBSAg Index 0.28 S/CO (0-0.99); Hep B Surf Ag Non-Reactive S/CO (NonReactive)
[2018-01-19] MEDS: Piperacillin/Tazobactam 2.25 GM in Sodium Chloride 0.9% 100 ML IVPB SCH (16:31)
--- NOTE | 2018-01-19 16:48 | CON ---
DATE OF CONSULTATION: 01/19/2018 HISTORY OF PRESENT ILLNESS: The patient is a pleasant 82-year-old gentleman who presented with alter ed mental status after a fall. The patient states that he has a previous history of atrial fibrillat ion. The patient has a past history of prostate carcinoma and end-stage renal disease. He states he fell yesterday. He denied having any palpitations. The patient denied having any chest discomfort or dyspnea. The patient noted to be in irregular heart rate, admitted for further evaluation. PAST MEDICAL HISTORY: 1. End-stage renal disease. 2. Prostate carcinoma. 3. Atrial fibrillation. 4. Pancytopenia. PAST SURGICAL HISTORY: He had an AV fistula. SOCIAL HISTORY: Nonsmoker. FAMILY HISTORY: Positive family history of heart disease. MEDICATIONS: Norvasc 5 daily, calcium 667 three tablets daily, hydralazine 100 b.i.d., metoprolol 50 XL daily, doxazosin 16 daily, vitamin D 2000 units daily, gabapentin 300 at bedtime, sodium bicarbon ate 325 two tablets daily. REVIEW OF SYSTEMS: Ten-point system otherwise unremarkable. No history of bright red blood per rect um and hematuria. PHYSICAL EXAMINATION: GENERAL: This is an elderly gentleman, in no acute distress. VITAL SIGNS: Blood pressure 119/56. NECK: Showed no jugular venous distention. LUNGS: Clear to auscultation. HEART: Irregular rate and rhythm. Normal S1, S2. No murmurs. ABDOMEN: Nondistended. EXTREMITIES: Showed trace edema. VASCULAR: Radial pulses are 2+. SKIN: Warm and dry. NEUROLOGIC: Nonfocal. LABORATORY DATA: Sodium 140, potassium 3.8, chloride 98, bicarbonate 30, BUN 63, creatinine 5.34. T roponin was 0.033. White blood cell count 2.0, hemoglobin 5.6, hematocrit 16.4 and his platelets 11. IMPRESSION: 1. Possible sepsis. 2. Paroxysmal atrial fibrillation. 3. Hypertension. 4. End-stage renal disease. 5. Prostate carcinoma with severe metastases. This unfortunate gentleman has prostate carcinoma with metastases and severe pancytopenia. The patie nt is on IV Cardizem. His rate is being controlled. The patient cannot be anticoagulated with his s evere pancytopenia. We will check the patient's echocardiogram. We will follow this patient with yo u through his hospitalization.
[2018-01-19 19:47] LABS: Band 6 % (5-11); Lymphocytes 26 % (21-51); MDiff Complete? YES; Monocytes 22 % (0-10); Neutrophil 46 % (42-75); PLT Morphology Comment Appears Decreased
[2018-01-19] MEDS: Diltiazem 125 MG in Sodium Chloride 0.9% 100 ML IVPB SCH (21:41)
[2018-01-20] MEDS: Piperacillin/Tazobactam 2.25 GM in Sodium Chloride 0.9% 100 ML IVPB SCH ×4 (00:22→23:54)
--- NOTE | 2018-01-20 02:36 | CON ---
DATE OF CONSULTATION: 01/19/2018 CONSULTING PHYSICIAN: Dejuan Johnson M.D. REQUESTING PHYSICIAN: Dr. Navas. REASON FOR CONSULTATION: Need for maintenance hemodialysis. IMPRESSION: 1. End-stage renal disease, hemodialysis dependent on Sunday, , and Sunday schedule. 2. Pancytopenia in the context of radiation, status post metastatic prostate cancer. 3. Atrial fibrillation with rapid ventricular response. 4. Fever/incipient sepsis. PLAN: 1. The patient to be dialyzed today in accordance with his schedule. 2. Transfuse this patient with 3 units of blood and 1 unit of platelets. 3. Further management to be dependent on the clinical course. HISTORY OF PRESENT ILLNESS: History is that of an 82-year-old nice gentleman with end-stage renal di sease, hemodialysis dependent, who went to dialysis today and developed chills and rigors and not fee ling very well. The patient was subsequently transferred over to be worked up for fever. The patien t was noted to be pancytopenic more or less febrile neutropenia with platelets of 11,000 and hemoglob in of 5. Decision has now been taken to admit this patient for atrial fibrillation with rapid ventri cular response as well as severe pancytopenia with fever. PAST MEDICAL HISTORY: Significant for end-stage renal disease hemodialysis dependent, metastatic pro static carcinoma status post chemotherapy, and atrial fibrillation. MEDICATIONS: Reviewed as documented on [employer]. FAMILY HISTORY: Not significant related to presenting illness. SOCIAL HISTORY: No history of tobacco, alcohol or illicit drug use. Patient is . REVIEW OF SYSTEMS: As documented in the body of the history. All the other systems were reviewed an d found not to be significantly related to presenting complaint. PHYSICAL EXAMINATION: GENERAL: The patient was found to be in no obvious distress, not able to follow. VITAL SIGNS: Febrile with temperature 100.2, pulse of 88-111, respiratory rate 18, O2 saturation 100 % with a blood pressure 90/56. HEENT: Unremarkable with moist oral mucosa. No conjunctival injection or icterus. NECK: Supple CARDIOVASCULAR SYSTEM: First and second heart sounds, irregularly irregular. RESPIRATORY SYSTEM: Clear to auscultation. DIGESTIVE SYSTEM: Revealed a benign abdomen with positive bowel sounds. EXTREMITIES: No peripheral edema. SKIN: No new gross rash. LYMPHATICS: No peripheral lymphadenopathy. SUMMARY: An 82-year-old gentleman with end-stage renal disease who presented here with febrile neutr openia. Thank you for this consultation. We will follow with you.
[2018-01-20] MEDS: Acetaminophen 325 MG TAB PO PRN ×4 (04:18→19:47)
[2018-01-20 05:08] LABS: Bilirubin Negative (Negative); Blood, Urine Small (Negative); Clarity CLOUDY (Clear); Glucose, Urine (Dipstick) Negative (Negative); Leukocyte Moderate (Negative); Nitrite Negative (Negative); Protein, Urine (Dipstick) 300 mg/dL (Neg-Trace); Specific Gravity, Urine 1.013 (1.002-1.036); pH, Urine 8.5 (5.0-9.0)
[2018-01-20 05:11] LABS: Anion Gap 14 mmol/L (10-20); BUN (Urea Nitrogen) 46 mg/dL (8.4-25.7); Calc. Creatinine Clearance 19 mL/min (70-130); Calcium 8.4 mg/dL (7.8-10.44); Carbon Dioxide 28 mmol/L (23-31); Chloride 100 mmol/L (98-107); Estimated GFR-MDRD 21; Glucose 103 mg/dL (83-110); Potassium 4.3 mmol/L (3.5-5.1); Sodium 138 mmol/L (136-145)
[2018-01-20 05:13] LABS: Bacteria/HPF Rare-Few HPF (None Seen); Hyaline Casts/LPF 4-6 HYALINE CAST LPF (0-3 Hyaline); Pathc Cast-AUWi Flag 1.59 (0-2.49); Squamous Epithelial 0-3 HPF (0-3)
[2018-01-20 05:21] LABS: Band 5 % (5-11); Hemoglobin 8.4 g/dL (14.0-18.0); Lymphocytes 21 % (21-51); MDiff Complete? YES; Mean Corpuscular HGB CONC 35.9 g/dL (32.0-36.0); Mean Corpuscular Hemoglobin 31.7 pg (27.0-31.0); Mean Corpuscular Volume 88.4 fl (80.0-94.0); Mean Platelet Volume 8.1 fL (7.4-10.4); Monocytes 30 % (0-10); Neutrophil 44 % (42-75); PLT Morphology Comment Appears Decreased; Platelet Count 50 thou/uL (130-400); RBC Distribution Width 12.8 % (11.5-14.5); Red Blood Cell (RBC) Count 2.66 mill/uL (4.70-6.10); White Blood Cell (WBC) Count 2.1 thou/uL (4.8-10.8)
[2018-01-20] MEDS: Diltiazem 125 MG in Sodium Chloride 0.9% 100 ML IVPB SCH (09:33)
--- NOTE | 2018-01-20 13:19 | PDOC.PN ---
- Subjective Encounter Start Date: 01/20/18 Encounter Start Time: 10:00 Pt seen for followup re: sepsis. Feels better, denies chest pain, shortness of breath, fevers or chills. - Objective Resuscitation Status: Resuscitation Status FULL:Full Resuscitation MAR Reviewed: Yes Vital Signs & Weight: Vital Signs (12 hours) Temp Pulse Resp BP Pulse Ox 01/20/18 11:52 98.8 F 74 18 120/52 L 100 01/20/18 08:00 102.4 F H 127 H 15 99 01/20/18 07:42 127 H 15 117/52 L 99 01/20/18 04:00 100.4 F H 92 18 156/47 H 98 Weight Weight 164 lb 10.965 oz I&O: 01/19/18 01/20/18 01/21/18 06:59 06:59 06:59 Intake Total 3114 Output Total 1030 Balance 2084 Result Diagrams: 01/20/18 03:56 01/20/18 03:56 EKG Reviewed by me: Yes (Tele: allyson xiao) Phys Exam - Physical Examination Constitutional: NAD HEENT: moist MMs, sclera anicteric, oral pharynx no lesions, 2+ tonsils Neck: no nodes, no JVD, supple, full ROM Respiratory: no wheezing, no rales, no rhonchi, clear to auscultation bilateral Cardiovascular: no rub, irregular S1, S2 Gastrointestinal: soft, non-tender, no distention, positive bowel sounds Neurological: moves all 4 limbs Psychiatric: normal affect Deviation from normal: Oriented to person and place, not to time Dx/Plan (1) Sepsis Code(s): A41.9 - SEPSIS, UNSPECIFIED ORGANISM Status: Acute Comment: due to UTI and Klebsiella bacteremia (2) Bacteremia due to Klebsiella pneumoniae Code(s): R78.81 - BACTEREMIA Status: Acute Comment: await sensitivities, continue IV Zosyn, discontinue IV vancomycin (3) UTI (urinary tract infection) Status: Acute Comment: continue IV Zosyn (4) Atrial fibrillation with RVR Code(s): I48.91 - UNSPECIFIED ATRIAL FIBRILLATION Status: Acute Comment: on Cardizem drip, appreciate cardiology input. Awaiting 2D echo. (5) Pancytopenia Code(s): D61.818 - OTHER PANCYTOPENIA Status: Chronic Comment: stable, due to bone mets (6) Prostate cancer metastatic to bone Code(s): C61 - MALIGNANT NEOPLASM OF PROSTATE; C79.51 - SECONDARY MALIGNANT NEOPLASM OF BONE Status: Chronic Comment: on bicalutamide (7) ESRD on dialysis Code(s): N18.6 - END STAGE RENAL DISEASE; Z99.2 - DEPENDENCE ON RENAL DIALYSIS Status: Chronic Comment: nephrology following for maintainance hemodialysis - Plan * . Review of Systems - Review of Systems Constitutional: negative: fever, chills, sweats, weakness, malaise Respiratory: negative: Cough, Shortness of Breath, SOB with Excertion, Pleuritic Pain, Wheezing Cardiovascular: negative: chest pain, palpitations, orthopnea, paroxysmal nocturnal dyspnea, edema, light headedness Gastrointestinal: negative: Nausea, Vomiting, Abdominal Pain, Diarrhea, Constipation, Melena, Hematochezia Genitourinary: negative: Dysuria, Frequency, Incontinence, Hematuria, Retention Skin: negative: Rash, Lesions, Tru, Bruising - Medications/Allergies Allergies/Adverse Reactions: Allergies Allergy/AdvReac Type Severity Reaction Status Date / Time No Known Allergies Allergy Unverified 01/19/18 07:56 Medications: Current Medications Acetaminophen (Tylenol) 650 mg PO Q4H PRN PRN Reason: Headache/Fever or Pain Last Admin: 01/20/18 09:34 Dose: 650 mg Bisacodyl (Dulcolax) 10 mg PO DAILYPRN PRN PRN Reason: Constipation Diltiazem HCl 125 mg/ Sodium (Chloride) 125 mls @ 10 mls/hr IVPB INF SUSAN; 10 MG /HR PRN Reason: Protocol Last Admin: 01/20/18 09:33 Dose: 125 mls Piperacillin Sod/Tazobactam (Sod 2.25 gm/ Sodium Chloride) 100 mls @ 200 mls/ hr IVPB 0800,1600,2359 SUSAN Last Admin: 01/20/18 09:33 Dose: 100 mls Vancomycin HCl 1.25 gm/ Sodium (Chloride) 250 mls @ 166.667 mls/hr IVPB WILLCALL SUSAN Vancomycin HCl 1 gm/ Device 200 mls @ 200 mls/hr IVPB WILLCALL SUSAN Vancomycin HCl 750 mg/ Sodium (Chloride) 250 mls @ 250 mls/hr IVPB WILLCALL SUSAN Vancomycin HCl 500 mg/ Sodium (Chloride) 100 mls @ 100 mls/hr IVPB WILLCALL SUSAN Miscellaneous Medication (Pharmacy To Dose) 1 each IVPB PRN PRN PRN Reason: Pharmacy to dose Hold Vancomycin For (Level >20) 0 each FS .AT DIALYSIS SUSAN Sodium Chloride (Flush - Normal Saline) 10 ml IVF Q12HR SUSAN Last Admin: 01/20/18 09:34 Dose: 10 ml Sodium Chloride (Flush - Normal Saline) 10 ml IVF PRN PRN PRN Reason: Saline Flush Last Admin: 01/19/18 12:25 Dose: 10 ml
--- NOTE | 2018-01-20 16:13 | CON ---
DATE OF CONSULTATION: 01/20/2018 HISTORY OF PRESENT ILLNESS: Mr. Beltran is an 82-year-old end-stage renal dialysis patient. He was admitted on MICU. We are being consulted because he denies MICU care. He was here because he is weak, lightheaded. He was anemic on admission. I underwent dialysis yesterday. There was some concern that he had some altered mental status. He sees Dr. Franz in [place], [place]. He also has complaints of left-sided hip pain. This morning, he states he is back to his baseline wi thout any chest pain, shortness of breath, cough. He is a former smoker, quit smoking 20 years ago. PAST MEDICAL HISTORY: End-stage renal disease and atrial fibrillation. PAST SURGICAL HISTORY: Access. CHRONIC MEDICATIONS: Cardizem 60 twice a day, metoprolol 50 twice a day, gabapentin 300 a day, Lasix 40 a day, Norvasc 5 a day, hydralazine 100 twice a day, calcium, Epogen, Cardura 16, Casodex 50, bic arbonate. ALLERGIES: None. SOCIAL HISTORY: Otherwise unremarkable. FAMILY HISTORY: Otherwise unremarkable. PHYSICAL EXAMINATION: VITAL SIGNS: His sats are 98% on room air, respiration 15, blood pressure is 127/70, temperature is 102.4. CHEST: Reveals decreased breath sounds without any wheezing. CARDIAC: Normal S1, S2, no gallops. ABDOMEN: Soft. No masses. LABORATORY DATA AND X-RAY FINDINGS: Chest x-ray was clear. White count 2000, H&H is 8 and 23, plate let count is 50,000. BUN and creatinine of 46 and 3.46. Blood culture is growing gram negative rods, may be Klebsiella. IMPRESSION: 1. Sepsis, possibly Klebseilla. 2. Chronic renal failure. 3. Pancytopenia with severe thrombocytopenia. 4. History of prostate cancer. 5. Atrial fibrillation. PLAN: Question is whether his pancytopenia is from bone marrow. Evaluate for his prostate cancer. His hypertension is resolved. He is on Zosyn and vancomycin, which probably should be adequate for h is Klebsiella coverage. Blood pressure richard is stable. His H&H is stabilized. It is 5.6 on admission, his hemoglobin. Pulmonary and Critical care will follow while in the [facility].
[2018-01-20 19:06] LABS: Vancomycin, Trough 8.6 ug/mL
[2018-01-20] MEDS: traMADol HCl 50 MG TAB PO PRN (21:02)
[2018-01-21] MEDS: Piperacillin/Tazobactam 2.25 GM in Sodium Chloride 0.9% 100 ML IVPB SCH ×3 (08:13→23:30)
[2018-01-21] MEDS: Acetaminophen 325 MG TAB PO PRN ×2 (08:14→12:26)
--- NOTE | 2018-01-21 10:31 | PQF ---
DATE: 01-21-18 ATTN: DR. SUHAIL ELLISON Please exercise your independent, professional judgment in responding to the clarification form. Clinical indicators are provided on the bottom of this form for your review Please check appropriate box(s): Pancytopenia due to: [ ] Chemotherapy/antineoplastic drugs [ ] Other drug-induced (please specify if known): [ ] Other diagnosis doe to bone metastases [ ] Unable to determine In addition, please specify: Present on Admission (POA): [ X ] Yes [ ] No [ ] Unable to determine For continuity of documentation, please document condition throughout progress notes and discharge summary. Thank You. CLINICAL INDICATORS - SIGNS / SYMPTOMS / LABS WBC: 01-19-18: 2.0 01-20-18: 2.1 RBC: 01-19-18: 1.82 01-20-18: 2.66 PLATELET COUNT: 01-19-18: 11 01-20-18: 50 ER DX: FEVER, A FIB WITH RVR, ESRD, PANCYTOPENIA TEMP: 01-19-18: 100.4, 100.4, 100.2, 99.8 01-20-18: 100.4, 102.4 01-21-18: 100.2, 100.1 RISK FACTORS: H&P: WEAKNESS, PROSTATE CANCER WITH METASTASIS TO THE BONES AND PANCYTOPENIA CONSULT NOTE DR. SAUCEDO 01-19-18: PANCYTOPENIA IN THE CONTEXT OF RADIATION, S/P METASTATIC PROSTATE CA TREATMENT: 01-19-18: [place] REDUCED RBC: 3 TRANSFUSED 01-19-18: [place] REDUCED PLATELETS: 1 TRANSFUSED (This form is maintained as a part of the permanent medical record) 2014 [employer]. All Rights Reserved MIGUEL ÁNGEL [email or web address] Office: [phone] [facility]
--- NOTE | 2018-01-21 10:36 | PRG ---
DATE OF SERVICE: 01/21/2018 This morning he is awake, responsive, in no distress. PHYSICAL EXAMINATION: VITAL SIGNS: His saturations are 100% on room air, temperature 100.1, pulse 102, blood pressure 156/ 59. CHEST: Chest revealed decreased breath sounds, no wheezing. CARDIAC: Normal S1-S2. ABDOMEN: Soft, no masses. IMPRESSION: 1. Klebsiella sepsis. 2. Hypertension. 3. Chronic renal failure. PLAN: Zosyn adjusted for the renal failure, more than adequate. I would discontinue vancomycin. We will follow while in the IMCU.
[2018-01-21] MEDS ORDERED: Metoprolol Tartrate 50 MG TAB PO SCH (12:00)
--- NOTE | 2018-01-21 12:05 | PDOC.PN ---
- Subjective Encounter Start Date: 01/21/18 Encounter Start Time: 08:00 Pt seen for followup re: sepsis. Feels better, denies chest pain, shortness of breath, fevers or chills. - Objective Resuscitation Status: Resuscitation Status FULL:Full Resuscitation MAR Reviewed: Yes Vital Signs & Weight: Vital Signs (12 hours) Temp Pulse Resp BP Pulse Ox 01/21/18 11:15 101.4 F H 118 H 16 153/64 H 97 01/21/18 08:20 93 L 01/21/18 08:14 102 H 01/21/18 08:00 101.4 F H 118 H 16 100 01/21/18 07:24 100.1 F H 102 H 16 153/59 H 100 01/21/18 04:00 100.2 F H 114 H 18 152/69 H 100 Weight Weight 172 lb 2.896 oz I&O: 01/20/18 01/21/18 01/22/18 06:59 06:59 06:59 Intake Total 3114 660 240 Output Total 1030 100 Balance 2084 560 240 Result Diagrams: 01/20/18 03:56 01/20/18 03:56 EKG Reviewed by me: Yes (Tele: karyn with RVR) Phys Exam - Physical Examination Constitutional: NAD HEENT: moist MMs, sclera anicteric, oral pharynx no lesions, 2+ tonsils Neck: no nodes, no JVD, supple, full ROM Respiratory: no wheezing, no rales, no rhonchi, clear to auscultation bilateral Cardiovascular: no rub S1, s2, irreg, tachy Gastrointestinal: soft, non-tender, no distention, positive bowel sounds Musculoskeletal: edema present Neurological: moves all 4 limbs Psychiatric: normal affect Deviation from normal: Oriented to person and place, not to time Dx/Plan (1) Sepsis Code(s): A41.9 - SEPSIS, UNSPECIFIED ORGANISM Status: Acute Comment: due to UTI and Klebsiella bacteremia (2) Bacteremia due to Klebsiella pneumoniae Code(s): R78.81 - BACTEREMIA Status: Acute Comment: await sensitivities, continue IV Zosyn, discontinue IV vancomycin (3) UTI (urinary tract infection) Status: Acute Comment: continue IV Zosyn (4) Atrial fibrillation with RVR Code(s): I48.91 - UNSPECIFIED ATRIAL FIBRILLATION Status: Acute Comment: on Cardizem drip, appreciate cardiology input. Awaiting 2D echo. (5) Pancytopenia Code(s): D61.818 - OTHER PANCYTOPENIA Status: Chronic Comment: stable, due to bone mets (6) Prostate cancer metastatic to bone Code(s): C61 - MALIGNANT NEOPLASM OF PROSTATE; C79.51 - SECONDARY MALIGNANT NEOPLASM OF BONE Status: Chronic Comment: on bicalutamide (7) ESRD on dialysis Code(s): N18.6 - END STAGE RENAL DISEASE; Z99.2 - DEPENDENCE ON RENAL DIALYSIS Status: Chronic Comment: nephrology following for maintainance hemodialysis - Plan * . Review of Systems - Review of Systems Constitutional: negative: fever, chills, sweats, weakness, malaise Respiratory: negative: Cough, Shortness of Breath, SOB with Excertion, Pleuritic Pain, Wheezing Cardiovascular: negative: chest pain, palpitations, orthopnea, paroxysmal nocturnal dyspnea, edema, light headedness Genitourinary: negative: Dysuria, Frequency, Incontinence, Hematuria, Retention Skin: negative: Rash, Lesions, Tru, Bruising Neurological: negative: Weakness, Numbness, Incoordination, Change in Speech, Confusion, Seizures - Medications/Allergies Allergies/Adverse Reactions: Allergies Allergy/AdvReac Type Severity Reaction Status Date / Time No Known Allergies Allergy Unverified 01/19/18 07:56 Medications: Current Medications Acetaminophen (Tylenol) 650 mg PO Q4H PRN PRN Reason: Headache/Fever or Pain Last Admin: 01/21/18 08:14 Dose: 650 mg Bisacodyl (Dulcolax) 10 mg PO DAILYPRN PRN PRN Reason: Constipation Diltiazem HCl (Cardizem Cd) 120 mg PO DAILY [facility] Last Admin: 01/21/18 08:14 Dose: 120 mg Piperacillin Sod/Tazobactam (Sod 2.25 gm/ Sodium Chloride) 100 mls @ 200 mls/ hr IVPB 0800,1600,2359 [facility] Last Admin: 01/21/18 08:13 Dose: 100 mls Metoprolol Tartrate (Lopressor) 50 mg PO BID [facility] Metoprolol Tartrate (Lopressor) 50 mg PO 1200 [facility] Stop: 01/21/18 14:00 Last Admin: 01/21/18 11:38 Dose: 50 mg Sodium Chloride (Flush - Normal Saline) 10 ml IVF Q12HR SUSAN Last Admin: 01/21/18 08:14 Dose: 10 ml Sodium Chloride (Flush - Normal Saline) 10 ml IVF PRN PRN PRN Reason: Saline Flush Last Admin: 01/19/18 12:25 Dose: 10 ml Tramadol HCl (Ultram) 50 mg PO Q6H PRN PRN Reason: Pain 4-6 Last Admin: 01/20/18 21:02 Dose: 50 mg
[2018-01-21] MEDS: traMADol HCl 50 MG TAB PO PRN (13:04)
[2018-01-21] MEDS: Metoprolol Tartrate 50 MG TAB PO SCH (20:35)
[2018-01-22] MEDS: Acetaminophen 325 MG TAB PO PRN ×3 (04:42→22:30)
[2018-01-22] MEDS: Piperacillin/Tazobactam 2.25 GM in Sodium Chloride 0.9% 100 ML IVPB SCH ×2 (08:32→16:16)
[2018-01-22] MEDS: Metoprolol Tartrate 50 MG TAB PO SCH ×2 (08:34→20:40)
--- NOTE | 2018-01-22 08:58 | PDOC.PN ---
- Subjective Encounter Start Date: 01/22/18 Encounter Start Time: 08:45 Subjective: f/u for sepsis due to UTI with Klebsiella spp on Zosyn. Nsg reports fever -: this am. Pt states he feels ok. Not ambulating or working with PT. - Objective Resuscitation Status: Resuscitation Status FULL:Full Resuscitation MAR Reviewed: Yes Vital Signs & Weight: Vital Signs (12 hours) Temp Pulse Resp BP BP Pulse Ox 01/22/18 08:33 99 108/55 L 01/22/18 08:00 98.9 F 99 16 108/55 L 98 01/22/18 04:30 95 01/22/18 04:00 101.2 F H 102 H 16 118/51 L 97 Weight Weight 172 lb 2.896 oz I&O: 01/21/18 01/22/18 01/23/18 06:59 06:59 06:59 Intake Total 660 860 Output Total 100 125 Balance 560 735 Result Diagrams: 01/20/18 03:56 01/20/18 03:56 Additional Labs: Microbiology 01/19/18 07:28 Venous blood - Right Arm Blood Culture - Final Klebsiella pneumoniae ssp pneu 01/19/18 07:20 Venous blood - Right Arm Blood Culture - Final Klebsiella pneumoniae ssp pneu Laboratory Tests 01/19/18 01/19/18 01/19/18 07:20 07:20 07:20 WBC 2.0 L Hgb 5.6 L* Plt Count 11 L* Creatinine 5.34 H Lactic Acid 1.9 Radiology Reviewed by me: Yes (2D echo - EF 65%, limited study) EKG Reviewed by me: Yes (Tele - A-fib in 80's) Phys Exam - Physical Examination Constitutional: NAD HEENT: PERRLA, sclera anicteric Neck: no nodes, no JVD, supple, full ROM Respiratory: no wheezing, no rales, no rhonchi, clear to auscultation bilateral S1, S2 Cardiovascular: no significant murmur, no rub, irregular Gastrointestinal: soft, non-tender, no distention, positive bowel sounds Musculoskeletal: no edema, pulses present Neurological: non-focal, normal sensation, moves all 4 limbs Psychiatric: normal affect, A&O x 3 Skin: no rash, normal turgor, cap refill <2 seconds Dx/Plan (1) Sepsis Code(s): A41.9 - SEPSIS, UNSPECIFIED ORGANISM Status: Acute Comment: due to UTI and Klebsiella bacteremia, continue Zosyn and add Rocephin 2gm IV daily due to recurrent fevers (2) UTI due to Klebsiella species Code(s): N39.0 - URINARY TRACT INFECTION, SITE NOT SPECIFIED; B96.1 - KLEBSIELLA PNEUMONIAE THE CAUSE OF DISEASES CLASSD ELSWHR Status: Acute Comment: Continue Zosyn, add Rocephin for double-coverage (3) Atrial fibrillation with RVR Code(s): I48.91 - UNSPECIFIED ATRIAL FIBRILLATION Status: Acute Comment: A- fib with improved rate, continue Metoprolol 50mg BID, Diltiazem 120mg daily (4) ESRD on dialysis Code(s): N18.6 - END STAGE RENAL DISEASE; Z99.2 - DEPENDENCE ON RENAL DIALYSIS Status: Chronic Comment: HD per Nephrology, no current volume overload (5) Pancytopenia Code(s): D61.818 - OTHER PANCYTOPENIA Status: Chronic Comment: Chronic secondary to Prostate carcinoma - Plan continue antibiotics, PT/OT, out of bed/ambulate, DVT proph w/SCDs Stable overall -: Continue Zosyn -: Add Rocephin 2gm IV daily -: PT evaluation for functional assessment -: HD per Nephrology * AM lab: BMP, CBC * ? home in 24-48h
--- NOTE | 2018-01-22 09:33 | PRG ---
DATE OF SERVICE: 01/22/2018 This morning is awake, alert, responsive. PHYSICAL EXAMINATION: VITAL SIGNS: Temperature 98, blood pressure 108/55, sats 90% on room air. No longer hypertensive. CHEST: Chest reveals decreased breath sounds, no wheezing. CARDIAC: Normal S1, S2. No gallops. ABDOMEN: Soft, no masses. IMPRESSION: 1. Klebsiella sepsis sensitive to present antibiotics. 2. Hypertension, resolved. 3. Chronic renal failure. Pulmonary Critical Care will follow at a distance. Continue antibiotics as tolerated.
[2018-01-22] MEDS: traMADol HCl 50 MG TAB PO PRN (13:05)
[2018-01-22] MEDS ORDERED: Calcium Carbonate 600 MG TAB PO SCH (15:00)
[2018-01-22] MEDS: Calcium Acetate 667 MG CAP PO SCH ×3 (16:19→18:32)
[2018-01-22 16:42] LABS: Hemoglobin 5.9 g/dL (14.0-18.0); Mean Corpuscular HGB CONC 34.1 g/dL (32.0-36.0); Mean Corpuscular Hemoglobin 30.3 pg (27.0-31.0); Mean Corpuscular Volume 88.8 fl (80.0-94.0); Mean Platelet Volume 8.9 fL (7.4-10.4); Platelet Count 23 thou/uL (130-400); RBC Distribution Width 12.8 % (11.5-14.5); Red Blood Cell (RBC) Count 1.94 mill/uL (4.70-6.10); White Blood Cell (WBC) Count 2.9 thou/uL (4.8-10.8)
[2018-01-22] MEDS: cefTRIAXone\\ROCEPHIN 2 GM in Sodium Chloride 0.9% 100 ML IVPB SCH (17:00)
[2018-01-22 17:08] LABS: Band 11 % (5-11); Lymphocytes 14 % (21-51); MDiff Complete? YES; Monocytes 4 % (0-10); Neutrophil 71 % (42-75); PLT Morphology Comment Appears Decreased
[2018-01-22] MEDS: Gabapentin 300 MG CAP PO SCH (20:40)
[2018-01-22] MEDS: Doxazosin 2 MG TAB PO SCH (20:40)
[2018-01-23] MEDS: Piperacillin/Tazobactam 2.25 GM in Sodium Chloride 0.9% 100 ML IVPB SCH ×4 (01:23→23:14)
--- NOTE | 2018-01-23 02:59 | PRG ---
DATE OF SERVICE: 01/22/2018 SUBJECTIVE: Patient seen and examined today, seems to be feeling very bad, not eating, and with a lo t of family members they are very upset noted with following vital signs. PHYSICAL EXAMINATION: VITAL SIGNS: Afebrile, temperature 97.9, pulse 100, respiratory rate of 18, O2 saturation 100% with a blood pressure 93/54 to 132/59. HEENT: Unremarkable. Moist oral mucosa. NECK: Supple, no conjunctival injection or icterus. CARDIOVASCULAR SYSTEM: First and second heart sounds were heard. RESPIRATORY SYSTEM: Clear to auscultation. DIGESTIVE SYSTEM: Revealed a benign abdomen with positive bowel sounds. EXTREMITIES: No peripheral edema. SKIN: No new gross rash. LYMPHATICS: No peripheral lymphadenopathy. LABORATORY INVESTIGATION: Status post stat CBC showed a hemoglobin of 5.9 with platelet of 23,000. IMPRESSION: 1. Sepsis in the context of Klebsiella infection due to immunosuppressed state. 2. Pancytopenia in the context of metastatic prostatic carcinoma, status post chemoradiotherapy. 3. End-stage renal disease. 4. Atrial fibrillation with rapid ventricular response. PLAN: 1. Transfuse this patient with two units of blood. 2. Change the patient's diet to regular diet. 3. Broad spectrum antibiotics. 4. Further management to be dependent on the clinical course. Condition of this patient is guarded.
[2018-01-23 05:53] LABS: Anion Gap 15 mmol/L (10-20); BUN (Urea Nitrogen) 70 mg/dL (8.4-25.7); Calc. Creatinine Clearance 15 mL/min (70-130); Calcium 7.7 mg/dL (7.8-10.44); Carbon Dioxide 26 mmol/L (23-31); Chloride 101 mmol/L (98-107); Estimated GFR-MDRD 16; Glucose 125 mg/dL (83-110); Potassium 3.6 mmol/L (3.5-5.1); Sodium 138 mmol/L (136-145)
[2018-01-23 06:03] LABS: Hemoglobin 6.4 g/dL (14.0-18.0); Mean Corpuscular HGB CONC 35.7 g/dL (32.0-36.0); Mean Platelet Volume 10.9 fL (7.4-10.4); Platelet Count 16 thou/uL (130-400); RBC Distribution Width 12.9 % (11.5-14.5); Red Blood Cell (RBC) Count 2.05 mill/uL (4.70-6.10); White Blood Cell (WBC) Count 1.9 thou/uL (4.8-10.8)
[2018-01-23 06:26] LABS: Band 7 % (5-11); Lymphocytes 29 % (21-51); MDiff Complete? YES; Monocytes 13 % (0-10); Neutrophil 51 % (42-75); PLT Morphology Comment Appears Decreased
[2018-01-23] MEDS: Calcium Acetate 667 MG CAP PO SCH ×3 (09:04→16:18)
[2018-01-23] MEDS: Metoprolol Tartrate 50 MG TAB PO SCH ×2 (09:05→20:57)
--- NOTE | 2018-01-23 09:12 | PDOC.PN ---
- Subjective Encounter Start Date: 01/23/18 Encounter Start Time: 09:00 Subjective: f/u for sepsis secondary to UTI with Klebsiella spp on Zosyn and Rocephin. -: States feeling better overall. HD this am. - Objective Resuscitation Status: Resuscitation Status FULL:Full Resuscitation MAR Reviewed: Yes Vital Signs & Weight: Vital Signs (12 hours) Temp Pulse Pulse Resp BP BP Pulse Ox 01/23/18 07:25 98.5 F 90 18 95/52 L 99 01/23/18 04:00 98.4 F 91 16 98/57 L 94 L 01/23/18 00:55 97.8 F 85 18 117/60 01/22/18 22:05 98.2 F 86 17 89/53 L 01/22/18 21:55 97.8 F 85 18 117/60 01/22/18 21:49 97.9 F 87 93/54 L Weight Weight 172 lb 9.951 oz I&O: 01/22/18 01/23/18 01/24/18 06:59 06:59 06:59 Intake Total 860 0 Output Total 125 141 Balance 735 -141 Result Diagrams: 01/23/18 05:30 01/23/18 05:30 Additional Labs: Accuchecks 01/22/18 20:42 POC Glucose 125 H Microbiology 01/19/18 07:28 Venous blood - Right Arm Blood Culture - Final Klebsiella pneumoniae ssp pneu 01/19/18 07:20 Venous blood - Right Arm Blood Culture - Final Klebsiella pneumoniae ssp pneu Laboratory Tests 01/19/18 01/19/18 01/19/18 07:20 07:20 07:20 WBC 2.0 L Hgb 5.6 L* Plt Count 11 L* Creatinine 5.34 H Lactic Acid 1.9 01/20/18 01/22/18 03:56 16:26 WBC 2.9 L Hgb 5.9 L* Plt Count 23 L* Creatinine 3.46 H Lactic Acid EKG Reviewed by me: Yes (Tele - SR in 90's) Phys Exam - Physical Examination Constitutional: NAD HEENT: PERRLA, sclera anicteric, oral pharynx no lesions Neck: no nodes, no JVD, supple, full ROM Respiratory: no wheezing, no rales, no rhonchi, clear to auscultation bilateral S1, S2 Cardiovascular: no significant murmur, no rub, gallop, irregular Gastrointestinal: soft, non-tender, no distention, positive bowel sounds Musculoskeletal: no edema, pulses present Neurological: normal sensation, moves all 4 limbs Psychiatric: normal affect Skin: no rash, normal turgor, cap refill <2 seconds Dx/Plan (1) Sepsis Code(s): A41.9 - SEPSIS, UNSPECIFIED ORGANISM Status: Acute Comment: due to UTI and Klebsiella bacteremia, continue Zosyn and add Rocephin 2gm IV daily due to recurrent fevers, continue double-coverage for another 24h then de-escalate to single agent (2) UTI due to Klebsiella species Code(s): N39.0 - URINARY TRACT INFECTION, SITE NOT SPECIFIED; B96.1 - KLEBSIELLA PNEUMONIAE THE CAUSE OF DISEASES CLASSD ELSWHR Status: Acute Comment: Continue Zosyn, add Rocephin for double-coverage, see above (3) Atrial fibrillation with RVR Code(s): I48.91 - UNSPECIFIED ATRIAL FIBRILLATION Status: Acute Comment: A- fib with improved rate, continue Metoprolol 50mg BID (4) ESRD on dialysis Code(s): N18.6 - END STAGE RENAL DISEASE; Z99.2 - DEPENDENCE ON RENAL DIALYSIS Status: Chronic Comment: HD per Nephrology, no current volume overload (5) Pancytopenia Code(s): D61.818 - OTHER PANCYTOPENIA Status: Chronic Comment: 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 (6) Normocytic anemia Code(s): D64.9 - ANEMIA, UNSPECIFIED Status: Chronic Comment: s/p 5u PRBC's total, serial H/H monitoring, no active blood loss noted - Plan continue antibiotics, PT/OT, licensed master social worker, out of bed/ambulate, DVT proph w/ SCDs Stable currrently -: Continue Zosyn and Rocephin another 24h then convert to single agent -: HD per Nephrology today -: Continue Metoprolol 50mg BID -: OOB with PT for mobilization * AM lab: CBC * Likely home in 24h
[2018-01-23] MEDS: traMADol HCl 50 MG TAB PO PRN (09:13)
[2018-01-23] MEDS: Bicalutamide 50 MG TAB PO SCH (10:20)
[2018-01-23] MEDS: cefTRIAXone\\ROCEPHIN 2 GM in Sodium Chloride 0.9% 100 ML IVPB SCH (10:20)
[2018-01-23] MEDS ORDERED: Epoetin 40,000 UNITS/ML VIAL SC SCH (10:30)
--- NOTE | 2018-01-23 10:52 | PRG ---
DATE OF SERVICE: 01/23/2018 SUBJECTIVE: The patient was seen and examined and noted with the following. PHYSICAL EXAMINATION: VITAL SIGNS: Afebrile, temperature 98.5, pulse 90, respiratory rate of 18, O2 sat is 99% on room air , blood pressure 95/52. GENERAL: The patient seems to be feeling a little bit better today. HEENT: Unremarkable with moist oral mucosa. NECK: Supple, no conjunctival injection or icterus. CARDIOVASCULAR SYSTEM: First and second heart sounds were heard. RESPIRATORY SYSTEM: Clear to auscultation. DIGESTIVE SYSTEM: Revealed a benign abdomen with positive bowel sounds. EXTREMITIES: No peripheral edema. SKIN: No new gross rash. LYMPHATICS: No peripheral lymphadenopathy. LABORATORY INVESTIGATIONS: Showed a hemoglobin of 6.4 with a white count of 1.9, platelets [id number]. C hemistry showed a creatinine of 4.26 with BUN of 70, calcium 7.7. IMPRESSION: 1. End-stage renal disease, on hemodialysis. 2. Severe anemia requiring multiple blood transfusions. 3. Severe thrombocytopenia. 4. Pancytopenia, all in the context of metastatic prostatic carcinoma - status post radio chemothera py. PLAN: 1. The patient to be on regular diet. 2. Continue febrile neutropenic precaution with antibiotics treatment. 3. We will likely transfuse this patient during dialysis tomorrow. In this case, patient likely to receive platelets and hemoglobin and red blood cell transfusion. 4. We will resume this patient closely. 5. Further management to be dependent on the clinical course.
[2018-01-23] MEDS ORDERED: metroNIDAZOLE 500 MG TAB PO SCH (18:45)
[2018-01-23] MEDS: Doxazosin 2 MG TAB PO SCH (20:57)
[2018-01-23] MEDS: Gabapentin 300 MG CAP PO SCH (20:57)
[2018-01-23] MEDS: Acetaminophen 325 MG TAB PO PRN (21:03)
[2018-01-23] MEDS: metroNIDAZOLE 500 MG TAB PO SCH (23:14)
[2018-01-24] MEDS: metroNIDAZOLE 500 MG TAB PO SCH ×4 (05:09→23:25)
[2018-01-24 05:50] LABS: Hemoglobin 5.8 g/dL (14.0-18.0); Mean Corpuscular HGB CONC 34.5 g/dL (32.0-36.0); Mean Corpuscular Hemoglobin 30.2 pg (27.0-31.0); Mean Corpuscular Volume 87.5 fl (80.0-94.0); Mean Platelet Volume 11.3 fL (7.4-10.4); Platelet Count 11 thou/uL (130-400); Red Blood Cell (RBC) Count 1.92 mill/uL (4.70-6.10); White Blood Cell (WBC) Count 2.1 thou/uL (4.8-10.8)
[2018-01-24 06:17] LABS: Band 9 % (5-11); Lymphocytes 36 % (21-51); MDiff Complete? YES; Metamyelocyte 1 % (0-0); Monocytes 8 % (0-10); Neutrophil 45 % (42-75); PLT Morphology Comment Appears Decreased; Reactive Lymphocytes 1 % (0-10)
[2018-01-24] MEDS: Piperacillin/Tazobactam 2.25 GM in Sodium Chloride 0.9% 100 ML IVPB SCH (07:27)
[2018-01-24] MEDS: Calcium Acetate 667 MG CAP PO SCH ×3 (10:58→17:03)
[2018-01-24] MEDS: Acetaminophen 325 MG TAB PO PRN ×2 (10:59→15:31)
[2018-01-24] MEDS: cefTRIAXone\\ROCEPHIN 2 GM in Sodium Chloride 0.9% 100 ML IVPB SCH (13:05)
[2018-01-24] MEDS: Bicalutamide 50 MG TAB PO SCH (13:05)
[2018-01-24] MEDS: Metoprolol Tartrate 50 MG TAB PO SCH ×2 (13:06→20:03)
--- NOTE | 2018-01-24 14:39 | PDOC.PN ---
- Subjective Encounter Start Date: 01/24/18 Encounter Start Time: 14:35 Subjective: f/u for sepsis with Klebsiella spp on Rocephin/Zosyn. Developed diarrhea -: 01/23/18 + c. diff antigen starting Flagyl. Minimal loose stool today. No -: fever. Decreased appetite. Received 2u PRBC's with HD. - Objective Resuscitation Status: Resuscitation Status FULL:Full Resuscitation MAR Reviewed: Yes Vital Signs & Weight: Vital Signs (12 hours) Temp Pulse Pulse Resp BP BP Pulse Ox 01/24/18 12:00 99.1 F 113 H 16 104/58 L 99 01/24/18 11:50 99.3 F 126 H 18 105/62 01/24/18 11:17 99.3 F 126 H 18 105/62 01/24/18 11:16 99.2 F 120 H 18 115/50 L 01/24/18 11:15 99.2 F 120 H 18 115/50 L 01/24/18 11:04 99.8 F H 116 H 18 122/56 L 01/24/18 10:45 99.8 F H 130 H 109/57 L 20 L 01/24/18 10:32 99.1 F 120 H 18 112/47 L 01/24/18 10:31 99.1 F 120 H 18 112/47 L 01/24/18 10:15 98.7 F 137 H 18 117/56 L 01/24/18 10:00 98.7 F 120 H 16 96/39 L 01/24/18 08:00 98.7 F 106 H 17 01/24/18 07:17 98.7 F 106 H 17 123/57 L 97 01/24/18 04:00 98.5 F 105 H 12 101/54 L 94 L Weight Weight 171 lb 12.8 oz I&O: 01/23/18 01/24/18 01/25/18 06:59 06:59 06:59 Intake Total 0 1740 1050 Output Total 141 Balance -141 1740 1050 Result Diagrams: 01/24/18 05:31 01/23/18 05:30 Additional Labs: Microbiology 01/23/18 14:33 Stool - Liquid Stool Occult Blood (JUANPABLO) - Final 01/23/18 14:33 Stool C. difficile GDH Antigen & Toxins - Final 01/23/18 14:33 Stool Clostridium difficile Toxin A&B PCR - Final 01/19/18 07:28 Venous blood - Right Arm Blood Culture - Final Klebsiella pneumoniae ssp pneu 01/19/18 07:20 Venous blood - Right Arm Blood Culture - Final Klebsiella pneumoniae ssp pneu Laboratory Tests 01/19/18 01/19/18 01/19/18 07:20 07:20 07:20 WBC 2.0 L Hgb 5.6 L* Plt Count 11 L* Creatinine 5.34 H Lactic Acid 1.9 01/20/18 01/22/18 01/23/18 03:56 16:26 05:30 WBC 2.9 L 1.9 L Hgb 5.9 L* 6.4 L Plt Count 23 L* 16 L* Creatinine 3.46 H Lactic Acid EKG Reviewed by me: Yes (Tele - A-fib in 90's) Phys Exam - Physical Examination Constitutional: NAD alert, responsive HEENT: PERRLA, sclera anicteric, oral pharynx no lesions Neck: no nodes, no JVD, supple, full ROM Respiratory: no wheezing, no rales, no rhonchi, clear to auscultation bilateral S1, S2 Cardiovascular: no significant murmur, no rub, gallop, irregular Gastrointestinal: soft, non-tender, no distention, positive bowel sounds Musculoskeletal: no edema, pulses present Neurological: non-focal, normal sensation, moves all 4 limbs Psychiatric: normal affect, A&O x 3 Skin: no rash, normal turgor, cap refill <2 seconds Dx/Plan (1) Sepsis Code(s): A41.9 - SEPSIS, UNSPECIFIED ORGANISM Status: Acute Comment: Secondary to Klebsiella bacteremia, continue Rocephin and d/c Zosyn (2) UTI due to Klebsiella species Code(s): N39.0 - URINARY TRACT INFECTION, SITE NOT SPECIFIED; B96.1 - KLEBSIELLA PNEUMONIAE THE CAUSE OF DISEASES CLASSD ELSWHR Status: Acute Comment: Suspected, continue Rocephin, d/c Zosyn (3) Atrial fibrillation with RVR Code(s): I48.91 - UNSPECIFIED ATRIAL FIBRILLATION Status: Acute Comment: A- fib with improved rate, continue Metoprolol 50mg BID (4) ESRD on dialysis Code(s): N18.6 - END STAGE RENAL DISEASE; Z99.2 - DEPENDENCE ON RENAL DIALYSIS Status: Chronic Comment: HD per Nephrology, no current volume overload (5) Pancytopenia Code(s): D61.818 - OTHER PANCYTOPENIA Status: Chronic Comment: 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
[2018-01-24] MEDS: Gabapentin 300 MG CAP PO SCH (20:03)
[2018-01-24] MEDS: Doxazosin 2 MG TAB PO SCH (20:03)
[2018-01-25] MEDS: Acetaminophen 325 MG TAB PO PRN ×2 (05:32→09:33)
[2018-01-25] MEDS: metroNIDAZOLE 500 MG TAB PO SCH ×4 (05:32→23:02)
--- NOTE | 2018-01-25 08:18 | CON ---
DATE OF CONSULTATION: 01/24/2018 REFERRING PHYSICIAN: Dr. Scotty Zambrano, [facility]. REASON FOR CONSULTATION: Hematochezia, anemia. HISTORY OF PRESENT ILLNESS: Sharon Beltran is an 82-year-old -[place] male hospitalized mary use of history of altered mental status. He was found to have atrial fibrillation and is being seen by cardiology and his ventricular rate is controlled. Since admission, he has been seen by Dr. Hemalatha peralta for his kidney failure also. The patient has pancytopenia. He has been transfused multiple ti mes. The patient has been having mild rectal bleeding with bowel movements over the last couple of d ays. The bleeding happened this morning, but he has had no more bleeding today. He also had mild bl eeding yesterday. He has no abdominal pain. There is perianal discomfort, tenesmus. No prior histo ry of any hemorrhoids. The patient is severely pancytopenic. His platelet count today is as low as 16 and it was very low at 10 on 11/13/2017. His hemoglobin is 6.4, hematocrit is 17.8, WBC count of 1900. His neutrophil count shows polymorphs of 51, lymphocytes 29, monocytes 13. His chemistry pane l shows sodium 138, potassium 3.6, BUN is 70, creatinine 4.6, glucose is 123. The patient tells me isaías quinonez has had no more bleeding since this morning. Apparently, it has been going on for the last couple of days. He has been transfused multiple times since admission. He has received two more units of p acked red blood cells today. The patient tells me the colonoscopy not too long, but I cannot find a report in the patient inquery. Appears comfortable and he is able to communicate reasonably well. Isaías quinonez also had some stool studies done which came back positive for C. diff antigen, but C. diff toxin is negative. He tells me there has been some liquid stool last couple of days. He has no other releva nt history. MEDICAL ILLNESSES: 1. Metastatic prostate cancer. 2. Chronic kidney disease on dialysis. 3. Atrial fibrillation, positive ventricular rate. 4. Fever and sepsis with Klebsiella, sepsis on antibiotics. 5. Severe pancytopenia with low WBC, platelet count, and hemoglobin. ALLERGIES: None. SOCIAL HISTORY: The patient is . He denies any smoking or any alcohol abuse. SURGICAL HISTORY: Status post AV fistula placement. FAMILY HISTORY: No family history of chronic kidney disease, cancer, or coronary artery disease. MEDICATIONS: Include amlodipine, calcium, Lasix, gabapentin, hydralazine, metoprolol, Vitamin D3, do xepin, Epogen, sodium bicarbonate. He is also on Flagyl and also broad-spectrum antibiotics. REVIEW OF SYSTEMS: Constitutional: History of fever, history of fatigue and tiredness . There is no history of any recent weight loss. Central Nervous System: No history of chronic headache, T IA, seizure disorder. No history of stroke. Respiratory system: No history of chronic cough, hemop tysis, dyspnea. Cardiovascular system: Palpitations is resolved. No dyspnea, orthopnea, or PND. G astrointestinal: No abdominal pain, nausea, vomiting, but did have some loose stools and also hemato chezia. Neuromuscular: No weakness or any syncope. PHYSICAL EXAMINATION: GENERAL: He appears very comfortable. He is awake, alert, and communicative. He is in no distress. VITAL SIGNS: Temperature today 98.9 degrees Fahrenheit, pulse is 91, blood pressure 114/56. HEENT: Conjunctivae clear. NECK: Supple. No adenitis or thyromegaly noted. CARDIOVASCULAR SYSTEM: First and second heart sounds normal. LUNGS: Clear to auscultation. ABDOMEN: Soft to palpate. Abdomen is nondistended. Abdomen is nontender. No organomegaly or darin s. Bowel sounds normal. LABORATORY DATA: From yesterday, sodium 138, potassium 3.6, chloride 101, bicarbonate 26, BUN 70, cr eatinine 4.26, glucose 125, calcium 7.7. Admitting LFTs: Bilirubin 0.7, AST 18, ALT 10, alkaline ph osphatase 114, albumin 3.2. CBC shows severe pancytopenia. WBC count of 1900, polymorphs 51, lympho cytes 29. Hemoglobin 6.4, hematocrit 17.8, MCH 7, platelet count is 16. The stool came back positiv e for C. difficile antigen, but toxin negative. He also has Klebsiella sepsis. OVERALL IMPRESSION: 1. Hematochezia, most likely from mucosal bleeding because of Tarceva thrombocytopenia. The patient has bleeding with bowel movement. He has no symptoms of hemorrhoids. 2. Klebsiella sepsis. 3. Clostridium difficile, positive antigen, but toxin negative. 4. Chronic kidney disease. 5. Atrial fibrillation with rapid ventricular response, controlled. I had a long talk with Devin explaining that a colonoscopy is not possible at the present time mary use of severe thrombocytopenia. Once his thrombocytopenia is corrected may be consider colonoscopy. At the present time, we will transfuse as needed and followup his lab data.
[2018-01-25] MEDS: Calcium Acetate 667 MG CAP PO SCH ×3 (09:32→17:47)
[2018-01-25] MEDS: Bicalutamide 50 MG TAB PO SCH (09:32)
[2018-01-25] MEDS: Saccharomyces boulardii 250 MG CAP PO SCH (09:32)
[2018-01-25] MEDS: Metoprolol Tartrate 50 MG TAB PO SCH ×2 (09:32→19:44)
[2018-01-25] MEDS: cefTRIAXone\\ROCEPHIN 2 GM in Sodium Chloride 0.9% 100 ML IVPB SCH (09:58)
[2018-01-25] MEDS: traMADol HCl 50 MG TAB PO PRN (11:59)
[2018-01-25 12:53] LABS: Band 20 % (5-11); Hemoglobin 7.5 g/dL (14.0-18.0); Lymphocytes 20 % (21-51); MDiff Complete? YES; Mean Corpuscular HGB CONC 34.8 g/dL (32.0-36.0); Mean Corpuscular Hemoglobin 30.9 pg (27.0-31.0); Mean Corpuscular Volume 88.8 fl (80.0-94.0); Mean Platelet Volume 8.6 fL (7.4-10.4); Monocytes 10 % (0-10); Neutrophil 49 % (42-75); PLT Morphology Comment Appears Decreased; Platelet Count 42 thou/uL (130-400); Polychromasia SLIGHT = 2-3 cells (100X) (0-2/hpf); RBC Distribution Width 12.9 % (11.5-14.5); Red Blood Cell (RBC) Count 2.43 mill/uL (4.70-6.10); White Blood Cell (WBC) Count 3.2 thou/uL (4.8-10.8)
--- NOTE | 2018-01-25 13:06 | PDOC.PN ---
- Subjective Encounter Start Date: 01/25/18 Encounter Start Time: 13:00 Subjective: f/u for Klebsiella sepsis on Rocephin. Also with c. diff antigen + on -: Flagyl. Overall feels better. No recurrent diarrhea but had BM this am -: with blood-tinging. - Objective Resuscitation Status: Resuscitation Status FULL:Full Resuscitation MAR Reviewed: Yes Vital Signs & Weight: Vital Signs (12 hours) Temp Pulse Resp BP Pulse Ox 01/25/18 11:55 97.7 F 101 H 18 92/52 L 01/25/18 07:02 99.7 F H 113 H 16 119/59 L 96 01/25/18 04:00 100.1 F H 106 H 19 125/66 100 Weight Weight 174 lb 3.2 oz I&O: 01/24/18 01/25/18 01/26/18 06:59 06:59 06:59 Intake Total 1740 2110 Balance 1740 2110 Result Diagrams: 01/25/18 12:30 01/23/18 05:30 Additional Labs: Microbiology 01/23/18 14:33 Stool - Liquid Stool Occult Blood (JUANPABLO) - Final 01/23/18 14:33 Stool C. difficile GDH Antigen & Toxins - Final 01/23/18 14:33 Stool Clostridium difficile Toxin A&B PCR - Final 01/19/18 07:28 Venous blood - Right Arm Blood Culture - Final Klebsiella pneumoniae ssp pneu 01/19/18 07:20 Venous blood - Right Arm Blood Culture - Final Klebsiella pneumoniae ssp pneu Laboratory Tests 01/19/18 01/19/18 01/19/18 07:20 07:20 07:20 WBC 2.0 L Hgb 5.6 L* Plt Count 11 L* Band Neuts % (Manual) Creatinine 5.34 H Lactic Acid 1.9 01/20/18 01/22/18 01/23/18 03:56 16:26 05:30 WBC 2.9 L 1.9 L Hgb 5.9 L* 6.4 L Plt Count 23 L* 16 L* Band Neuts % (Manual) Creatinine 3.46 H Lactic Acid 01/24/18 01/25/18 05:31 12:30 WBC 2.1 L Hgb 5.8 L* Plt Count 11 L* Band Neuts % (Manual) 9 20 H Creatinine Lactic Acid EKG Reviewed by me: Yes (Tele - A-fib in 's) Phys Exam - Physical Examination Constitutional: NAD HEENT: PERRLA, sclera anicteric, oral pharynx no lesions Neck: no nodes, no JVD, supple, full ROM Respiratory: no wheezing, no rales, no rhonchi, clear to auscultation bilateral tachycardic S1, S2 Cardiovascular: no significant murmur, no rub, gallop, irregular Gastrointestinal: soft, non-tender, no distention, positive bowel sounds Musculoskeletal: no edema, pulses present Neurological: normal sensation, moves all 4 limbs Psychiatric: normal affect, A&O x 3 Skin: no rash, normal turgor, cap refill <2 seconds Dx/Plan (1) Sepsis Code(s): A41.9 - SEPSIS, UNSPECIFIED ORGANISM Status: Acute Comment: Secondary to Klebsiella bacteremia, continue Rocephin and d/c Zosyn (2) UTI due to Klebsiella species Code(s): N39.0 - URINARY TRACT INFECTION, SITE NOT SPECIFIED; B96.1 - KLEBSIELLA PNEUMONIAE THE CAUSE OF DISEASES CLASSD ELSWHR Status: Acute Comment: Suspected, continue Rocephin, d/c Zosyn (3) Atrial fibrillation with RVR Code(s): I48.91 - UNSPECIFIED ATRIAL FIBRILLATION Status: Acute Comment: A- fib with improved rate, continue Metoprolol 50mg BID (4) ESRD on dialysis Code(s): N18.6 - END STAGE RENAL DISEASE; Z99.2 - DEPENDENCE ON RENAL DIALYSIS Status: Chronic Comment: HD per Nephrology, no current volume overload (5) Pancytopenia Code(s): D61.818 - OTHER PANCYTOPENIA Status: Chronic Comment: 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 (6) Normocytic anemia Code(s): D64.9 - ANEMIA, UNSPECIFIED Status: Chronic Comment: s/p total 8u PRBC's total, serial H/H monitoring, conservative mgmt, no endoscopy currently due to thrombocytopenia and risk of further bleeding (7) Clostridium difficile diarrhea Code(s): A04.72 - ENTEROCOLITIS D/T CLOSTRIDIUM DIFFICILE, NOT SPCF RECUR Status: Acute Comment: Change Flagyl 500mg po TID, clinically improved - Plan plan discussed w/ family, continue antibiotics, PT/OT, outreach and education social worker, out of bed/ambulate, DVT proph w/SCDs Stable overall -: Continue Rocephin -: Continue Flagyl 500mg po TID -: OOB/ambulate -: HD per Renal service * AM lab: CBC, BMP
[2018-01-25] MEDS: Doxazosin 2 MG TAB PO SCH (19:44)
[2018-01-25] MEDS: Gabapentin 300 MG CAP PO SCH (19:44)
[2018-01-26] MEDS: Acetaminophen 325 MG TAB PO PRN ×2 (05:05→08:29)
[2018-01-26] MEDS: metroNIDAZOLE 500 MG TAB PO SCH ×4 (05:05→21:28)
--- NOTE | 2018-01-26 07:47 | PRG ---
DATE OF SERVICE: 01/25/2018 SUBJECTIVE: The patient was seen and examined. PHYSICAL EXAMINATION: VITAL SIGNS: Afebrile with temperature 98.9, pulse 112, respiratory rate 16, O2 sat 95% with a blood pressure 115/53. HEENT: Unremarkable with moist oral mucosa. CARDIOVASCULAR: First and second heart sounds were heard. RESPIRATORY: Clear to auscultation. DIGESTIVE: Revealed a benign abdomen. EXTREMITIES: No peripheral edema. SKIN: No new gross rash. LYMPHATICS: No peripheral lymphadenopathy. IMPRESSION: 1. Severe anemia requiring recurrent transfusions. 2. End-stage renal disease on hemodialysis. 3. Gastrointestinal bleed. 4. History of metastatic carcinoma, status post radio chemotherapy. PLAN: 1. The patient has been requiring multiple transfusions. I do believe the patient would benefit fro m comprehensive GI evaluation as the severe anemia is likely multifactorial including but not limited to GI loss and failed bone marrow. 2. Hemodialysis as per patient's schedule. 3. Further management to be dependent per primary team and the GI recommendation. 4. Disposition planning. The patient seems to want to go home.
--- NOTE | 2018-01-26 07:52 | PRG ---
DATE OF SERVICE: 01/26/2018 SUBJECTIVE: The patient was seen and examined. PHYSICAL EXAMINATION: VITAL SIGNS: Febrile with temperature 100.4, pulse 98, respiratory rate of 16, O2 sat 98% with a blo od pressure 99/53. HEENT: Unremarkable. CARDIOVASCULAR: First and second heart sounds were heard. RESPIRATORY: Clear to auscultation. DIGESTIVE: Revealed a benign abdomen. EXTREMITIES: No peripheral edema. SKIN: No new gross rash. IMPRESSION: 1. End-stage renal disease on hemodialysis. 2. Low-grade fever. 3. Bacteremia, on treatment. 4. Severe anemia, status post multiple transfusions. PLAN: 1. The patient continue with regular hemodialysis per schedule. 2. Further management to be dependent on the clinical course as well as further recommendations from the Gastroenterology service and the primary team.
[2018-01-26 08:14] LABS: Hemoglobin 5.8 g/dL (14.0-18.0); Mean Corpuscular HGB CONC 34.9 g/dL (32.0-36.0); Mean Corpuscular Hemoglobin 31.1 pg (27.0-31.0); Mean Corpuscular Volume 89.2 fl (80.0-94.0); Mean Platelet Volume 8.5 fL (7.4-10.4); Platelet Count 16 thou/uL (130-400); Red Blood Cell (RBC) Count 1.85 mill/uL (4.70-6.10); White Blood Cell (WBC) Count 1.9 thou/uL (4.8-10.8)
[2018-01-26] MEDS: Calcium Acetate 667 MG CAP PO SCH ×3 (08:29→18:03)
[2018-01-26] MEDS: Metoprolol Tartrate 50 MG TAB PO SCH ×2 (08:30→20:37)
[2018-01-26 08:37] LABS: Band 21 % (5-11); Lymphocytes 13 % (21-51); MDiff Complete? YES; Monocytes 13 % (0-10); Neutrophil 53 % (42-75); PLT Morphology Comment Appears Decreased
[2018-01-26] MEDS: traMADol HCl 50 MG TAB PO PRN ×2 (10:18→20:37)
[2018-01-26] MEDS: Saccharomyces boulardii 250 MG CAP PO SCH (12:29)
[2018-01-26] MEDS: Bicalutamide 50 MG TAB PO SCH (12:30)
[2018-01-26] MEDS: cefTRIAXone\\ROCEPHIN 2 GM in Sodium Chloride 0.9% 100 ML IVPB SCH ×2 (12:42→12:43)
--- NOTE | 2018-01-26 14:14 | PDOC.PN ---
- Subjective Encounter Start Date: 01/26/18 Encounter Start Time: 14:00 Subjective: f/u for acute/chronic anemia with GI loss and pancytopenia with -: thrombocytopenia. 10 total units PRBC's given during hospital stay. -: No diarrhea but dark stools noted. HD completed today. - Objective Resuscitation Status: Resuscitation Status FULL:Full Resuscitation MAR Reviewed: Yes Vital Signs & Weight: Vital Signs (12 hours) Temp Pulse Resp BP Pulse Ox 01/26/18 12:00 98.2 F 118 H 17 132/70 97 01/26/18 08:35 100.4 F H 98 16 01/26/18 04:00 100.4 F H 98 16 99/53 L 98 Weight Weight 173 lb 5.76 oz I&O: 01/25/18 01/26/18 01/27/18 06:59 06:59 06:59 Intake Total 2110 750 120 Balance 2110 750 120 Result Diagrams: 01/26/18 07:41 01/23/18 05:30 Additional Labs: Microbiology 01/23/18 14:33 Stool - Liquid Stool Occult Blood (JUANPABLO) - Final 01/23/18 14:33 Stool C. difficile GDH Antigen & Toxins - Final 01/23/18 14:33 Stool Clostridium difficile Toxin A&B PCR - Final 01/19/18 07:28 Venous blood - Right Arm Blood Culture - Final Klebsiella pneumoniae ssp pneu 01/19/18 07:20 Venous blood - Right Arm Blood Culture - Final Klebsiella pneumoniae ssp pneu Laboratory Tests 01/19/18 01/19/18 01/19/18 07:20 07:20 07:20 WBC 2.0 L Hgb 5.6 L* Plt Count 11 L* Band Neuts % (Manual) Creatinine 5.34 H Lactic Acid 1.9 01/20/18 01/22/18 01/23/18 03:56 16:26 05:30 WBC 2.9 L 1.9 L Hgb 5.9 L* 6.4 L Plt Count 23 L* 16 L* Band Neuts % (Manual) Creatinine 3.46 H Lactic Acid 01/24/18 01/25/18 05:31 12:30 WBC 2.1 L Hgb 5.8 L* Plt Count 11 L* Band Neuts % (Manual) 9 20 H Creatinine Lactic Acid EKG Reviewed by me: Yes (Tele - A-fib RVR in 110's) Phys Exam - Physical Examination Constitutional: NAD alert, responsive HEENT: PERRLA, sclera anicteric, oral pharynx no lesions Neck: no nodes, no JVD, supple, full ROM Respiratory: no wheezing, no rales, no rhonchi, clear to auscultation bilateral tachycardic S1, S2 Cardiovascular: no significant murmur, no rub, gallop, irregular Gastrointestinal: soft, non-tender, no distention, positive bowel sounds Musculoskeletal: no edema, pulses present Neurological: normal sensation, moves all 4 limbs Psychiatric: normal affect, A&O x 3 Skin: no rash, normal turgor, cap refill <2 seconds Dx/Plan (1) Normocytic anemia Code(s): D64.9 - ANEMIA, UNSPECIFIED Status: Chronic Comment: s/p total 10u PRBC's total, serial H/H monitoring, GI service reluctant for endoscopy due to thrombocytopenia, consult medical oncology (2) Sepsis Code(s): A41.9 - SEPSIS, UNSPECIFIED ORGANISM Status: Acute Comment: Secondary to Klebsiella bacteremia, continue Rocephin and d/c Zosyn (3) UTI due to Klebsiella species Code(s): N39.0 - URINARY TRACT INFECTION, SITE NOT SPECIFIED; B96.1 - KLEBSIELLA PNEUMONIAE THE CAUSE OF DISEASES CLASSD ELSWHR Status: Acute Comment: Suspected, continue Rocephin, d/c Zosyn (4) Atrial fibrillation with RVR Code(s): I48.91 - UNSPECIFIED ATRIAL FIBRILLATION Status: Acute Comment: Rate variable, continue Metoprolol 50mg BID (5) ESRD on dialysis Code(s): N18.6 - END STAGE RENAL DISEASE; Z99.2 - DEPENDENCE ON RENAL DIALYSIS Status: Chronic Comment: HD per Nephrology, no current volume overload (6) Pancytopenia Code(s): D61.818 - OTHER PANCYTOPENIA Status: Chronic Comment: 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, consult medical oncology (7) Clostridium difficile diarrhea Code(s): A04.72 - ENTEROCOLITIS D/T CLOSTRIDIUM DIFFICILE, NOT SPCF RECUR Status: Acute Comment: Change Flagyl 500mg po TID, clinically improved - Plan plan discussed w/ family, continue antibiotics, PT/OT, social worker delinquency prevention, out of bed/ambulate, DVT proph w/SCDs Stable currently -: Consult GI for any further recommendations for work up, continues to -: require PRBC's and platelets with 10 total PRBC's and 3 platelet packs -: Continue Flagyl 500mg TID -: PT for mobilization/ambulation * AM lab: CBC, BMP * Re-submit blood cx x 2
--- NOTE | 2018-01-26 15:55 | PRG ---
DATE OF SERVICE: 01/26/2018 SUBJECTIVE: I am meeting Mr. Beltran for the first time today. He reports the bowel movements are d ark just once per day. He is not having any abdominal pain, nausea, or vomiting. He has continued t o require RBC and platelet transfusions. Currently, this admission, he has received 8 units of RBCs and 1 unit of platelets, currently getting another unit of platelets today. PHYSICAL EXAMINATION: VITAL SIGNS: Temperature 98.2, pulse 118, blood pressure 132/70, 97% oxygen saturation on room air. GENERAL: No acute distress. HEART: Regular, tachycardia. LUNGS: Clear to auscultation bilaterally. ABDOMEN: Soft, nontender. EXTREMITIES: No peripheral edema. LABORATORY STUDIES: WBC 1.9, hemoglobin 5.8, MCV 89.2, platelets down again to 16. Sodium 138, pota ssium 3.6, BUN 70, creatinine 4.26. IMPRESSION AND PLAN: 1. Gastrointestinal bleeding. 2. Pancytopenia, severe. 3. 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 4. Rectal polyp. I spent some time in chart review looking at his prior endoscopic investigations. The patient had a colonoscopy in 07/2017, which showed multiple polyps throughout the colon ranging between 3 and 10 mm in size, which were not removed due to the patient's thrombocytopenia and risk of worsening bleeding . There was a 3 mm arteriovenous malformation with overlying clot in the sigmoid colon at that time and this was treated with argon plasma coagulation. He also has large internal hemorrhoids. The [facility] ient actually underwent EGD and colonoscopy more recently on 12/10/2017. At that time, he was found to have a small oozing arteriovenous malformation in the prepyloric area, which was treated with bipo lar cautery and colonoscopy with poor prep, but an 8-9 mm rectal polyp which was not removed, again d ue to increased risk of worsening bleeding. There was some friability within the rectal mucosa with passage of the colonoscope. The patient has multiple potential bleeding sources from the GI tract, and I would think it is safe t o say he likely has more arteriovenous malformations throughout the small bowel which has not even be en visualized. With such severe thrombocytopenia, obviously this chronic gastrointestinal bleeding i s not surprising. He has other reasons for a significant hemoglobin decline including his end-stage renal disease. I think that if the thrombocytopenia were better controlled and corrected in the long-term, then he would also likely be having less chronic gastrointestinal bleeding. I would agree wit h Dr. Beauchamp's opinion that any endoscopic investigation at this time would likely not be helpful, and was actually likely put him at risk for worsening hemorrhage going forward. I would recommend g [facility] opinion regarding the patient's severe pancytopenia in the context of meta static prostate cancer. Transfuse as needed, particularly platelets. No plan for any endoscopic inv estigation. I discussed this at length with the patient and his family. Please call back with any questions or concerns.
[2018-01-26] MEDS: Gabapentin 300 MG CAP PO SCH (20:37)
[2018-01-26] MEDS: Doxazosin 2 MG TAB PO SCH (20:38)
[2018-01-27] MEDS: Acetaminophen 325 MG TAB PO PRN ×2 (00:42→08:21)
[2018-01-27 05:53] LABS: Anion Gap 12 mmol/L (10-20); BUN (Urea Nitrogen) 49 mg/dL (8.4-25.7); Calc. Creatinine Clearance 20 mL/min (70-130); Calcium 7.9 mg/dL (7.8-10.44); Carbon Dioxide 29 mmol/L (23-31); Chloride 102 mmol/L (98-107); Estimated GFR-MDRD 21; Glucose 105 mg/dL (83-110); Potassium 3.1 mmol/L (3.5-5.1); Sodium 140 mmol/L (136-145)
[2018-01-27] MEDS: traMADol HCl 50 MG TAB PO PRN ×2 (06:00→21:34)
[2018-01-27] MEDS: metroNIDAZOLE 500 MG TAB PO SCH ×3 (06:00→21:43)
[2018-01-27 06:05] LABS: Hemoglobin 7.2 g/dL (14.0-18.0); Lymphocytes 30 % (21-51); MDiff Complete? YES; Mean Corpuscular HGB CONC 35.9 g/dL (32.0-36.0); Mean Platelet Volume 8.1 fL (7.4-10.4); Monocytes 16 % (0-10); Neutrophil 54 % (42-75); PLT Morphology Comment Appears Decreased; Platelet Count 55 thou/uL (130-400); RBC Distribution Width 12.8 % (11.5-14.5); Red Blood Cell (RBC) Count 2.26 mill/uL (4.70-6.10); White Blood Cell (WBC) Count 2.6 thou/uL (4.8-10.8)
[2018-01-27] MEDS: Saccharomyces boulardii 250 MG CAP PO SCH (08:21)
[2018-01-27] MEDS: Calcium Acetate 667 MG CAP PO SCH ×3 (08:21→17:39)
[2018-01-27] MEDS: Metoprolol Tartrate 50 MG TAB PO SCH ×2 (08:21→21:12)
--- NOTE | 2018-01-27 09:16 | PDOC.PN ---
- Subjective Encounter Start Date: 01/27/18 (f/u fever) Encounter Start Time: 09:14 Subjective: Pt c/o persistent hip pain - left > right and from fall prior to admission -: denies cp/sob/n/v/abd pain. Continues to have loose stools - Objective Resuscitation Status: Resuscitation Status FULL:Full Resuscitation Vital Signs & Weight: Vital Signs (12 hours) Temp Pulse Resp BP Pulse Ox 01/27/18 08:00 100.1 F H 119 H 18 140/70 97 01/27/18 04:00 98.5 F 94 16 118/59 L 97 01/27/18 00:08 100 01/27/18 00:00 100.9 F H 84 16 118/57 L 94 L Weight Weight 171 lb 11.2 oz I&O: 01/26/18 01/27/18 01/28/18 06:59 06:59 06:59 Intake Total 750 1150 Output Total 1100 Balance 750 50 Result Diagrams: 01/27/18 05:14 01/27/18 05:14 EKG Reviewed by me: Yes (tele - a fib with rates 110-130's) Phys Exam - Physical Examination Constitutional: NAD HEENT: moist MMs Respiratory: no wheezing, no rales, no rhonchi Cardiovascular: no significant murmur, irregular Gastrointestinal: soft, non-tender, no distention, positive bowel sounds Musculoskeletal: no edema, pulses present 2+ dp pulses, ttp along left proximal femur/trochanteric bursa Neurological: non-focal Psychiatric: normal affect Skin: no rash Dx/Plan (1) Atrial fibrillation with RVR Code(s): I48.91 - UNSPECIFIED ATRIAL FIBRILLATION Status: Acute (2) Bacteremia due to Klebsiella pneumoniae Code(s): R78.81 - BACTEREMIA Status: Acute (3) Clostridium difficile diarrhea Code(s): A04.72 - ENTEROCOLITIS D/T CLOSTRIDIUM DIFFICILE, NOT SPCF RECUR Status: Acute (4) ESRD on dialysis Code(s): N18.6 - END STAGE RENAL DISEASE; Z99.2 - DEPENDENCE ON RENAL DIALYSIS Status: Chronic (5) Pancytopenia Code(s): D61.818 - OTHER PANCYTOPENIA Status: Chronic (6) Prostate cancer metastatic to bone Code(s): C61 - MALIGNANT NEOPLASM OF PROSTATE; C79.51 - SECONDARY MALIGNANT NEOPLASM OF BONE Status: Chronic - Plan * Current fever likely contributing to tachycardia - has received tylenol * Continue fever eval - blood cx from yesterday pending, will order bilateral hip xray. hold on cxr as no breathing sx. And will also order urine culture - if possible to obtain * * continue current meds * current hb and platelets stable - no indication for transfusion now. Appreciate oncology eval * potassium low - will order supplement * * HD per Nephrology * Tachy - address pain and fever and continue metoprolol * * dvt prophy - moderate to severe thrombocytopenia - hold on dvt prophy * gi prophy - not indicated * code status full * * Pt's goal is to return home - will place palliative care consult for assistance with this goal. * * reviewed plan of care with patient, no questions or further needs at end of eval.
--- NOTE | 2018-01-27 11:01 | RAD ---
LEFT HIP 2 VIEWS: Date: 01/27/18 HISTORY: Hip pain. FINDINGS: Bones appear demineralized. Sclerotic bone lesions are consistent with some sclerotic metastatic dise ase. No signs of any pathologic fracture or other findings. IMPRESSION: Sclerotic bone lesions. No acute process. POS: BEN
--- NOTE | 2018-01-27 11:02 | RAD ---
RIGHT HIP 2 VIEWS: Date: 01/27/18 HISTORY: Fall prior to admission. FINDINGS: Sclerotic bone lesions consistent with metastatic change are noted. There are no signs of any fractur e. Bones are demineralized. IMPRESSION: Sclerotic bone lesions highly suspicious for metastatic disease. These had been noted on previous del dy. POS: BEN
[2018-01-27] MEDS: Bicalutamide 50 MG TAB PO SCH (11:44)
[2018-01-27] MEDS: cefTRIAXone\\ROCEPHIN 2 GM in Sodium Chloride 0.9% 100 ML IVPB SCH (11:44)
--- NOTE | 2018-01-27 16:57 | CON ---
DATE OF CONSULTATION: 01/27/2018 REASON FOR CONSULTATION: Pancytopenia. HISTORY OF PRESENT ILLNESS: The patient is a pleasant 82-year-old - [place] male who presented to the emergency room with a GI bleed. Please note , the patient has two medical numbers in [facility], most of his medical records can be seen on his other number [id number]. He was recently discharged from this facility on 01/12/2018 when he was admitted for atrial fibrillation. He fell several days ago and began to have altered mental status after the fall. In the emergency room in [place], he was had a hemoglobin of 5.6 and a platelet count of 11,000. He was transfused and transferred to this facility for further evaluation. Patient has been pancytopenic since 07/2017. He has had multiple admissions including July, September, November and December at which time his platelets were as low as 2000 at one point. He has had intermittent bleeding. He had a colonoscopy in November by Dr. Reyes, which showed rectal polyp and AV malformation. The patient was instructed to follow up with his oncologist for evaluation of his pancytopenia. states she has not seen his oncologist in quite some time. The patient's prostate cancer was initially diagnosed in 2006. He underwent radiation. His states he did receive monthly shots for a while under the care of Dr. Quinteros, but has not received shots in quite some time. Review of patient's medical records reveal that he is on Casodex. She is unaware of what his recent PSA is; however, in 2014, his PSA was 228. The patient has been transfused on this admission, 10 units of packed RBCs and 2 units of platelets. His bleeding has stopped. We were asked to assist with evaluation for his pancytopenia. PAST MEDICAL HISTORY: 1. Metastatic prostate cancer. 2. Hypertension. 3. End-stage renal disease on dialysis. 4. Paroxysmal atrial fibrillation. 5. Gastroesophageal reflux. PAST SURGICAL HISTORY: 1. Laparoscopic cholecystectomy. 2. Fistula placement 3. Back surgery x3. 4. Hernia repair. 5. Colonoscopy and EGD in 11/2017. ALLERGIES: No known drug allergies. HOME MEDICATIONS: 1. Norvasc 5 mg daily. 2. Casodex 50 mg daily. 3. Calcium t.i.d. 4. D3 daily. 5. Diltiazem ER 60 mg b.i.d. 6. Cardura 16 mg daily. 7. Epogen with dialysis. 8. Lasix 40 mg daily. 9. Gabapentin 300 mg daily. 10. Hydralazine 100 mg b.i.d. 11. Metoprolol 500 mg b.i.d. 12. Sodium bicarbonate daily. FAMILY HISTORY: History of breast cancer in his sister. SOCIAL HISTORY: , has 14 children, lives in [place]. No alcohol, tobacco or illicit drug use. REVIEW OF SYSTEMS: Constitutional: Positive for fever and weight loss. Eyes: No blurred or double vision. ENT: No pain, hoarseness, sore throat, dysphagia. Cardiovascular: No chest pain, but positive for palpitations and syncope. Respiratory: Positive for occasional shortness of breath, no cough. Abdomen: No nausea, vomiting, diarrhea, constipation or abdominal pain. Genitourinary: Positive for dysuria, no hematuria. Musculoskeletal: Positive for back and hip pain. Skin: No rash or pruritus. Hematologic: Positive for bleeding, no bruising or clotting. Neurologic: Positive for weakness, no headache, numbness, tingling or seizure activity. Psychiatric: No anxiety or depression. PHYSICAL EXAMINATION: VITAL SIGNS: Temperature is 98.5, pulse is 123, respiratory rate 17, blood pressure is 118/56. He is 98% on room air. GENERAL: Chronically ill-appearing male in no acute distress. HEENT: Normocephalic, atraumatic. Cataract noted in the right eye. NECK: Supple. CARDIOVASCULAR: Irregular rate and rhythm. LUNGS: Clear. ABDOMEN: Soft, nontender, bowel sounds are positive. EXTREMITIES: No clubbing, cyanosis or edema. SKIN: No rash. HEMATOLOGIC: No petechia or purpura. NEUROLOGICAL: Nonfocal. PSYCHIATRIC: The patient is alert and oriented and answering questions. PERTINENT LABORATORY DATA AND X-RAYS: Current WBCs are 2.6, hemoglobin 7.2, hematocrit 20.1, platelet count 55,000. He has 54% neutrophils, 30% lymphocytes , 16% monocytes. Peripheral smear showed no blasts. Sodium is 140, potassium 3.1, chloride 102, CO2 is 29, BUN is 49, creatinine 3.36, calcium is 7.9, total bilirubin is 0.7, AST is 18, ALT is 10, alkaline phosphatase is 114. Troponin 0.033, serum total protein 7.6, albumin 3.2, globulin 4.4. Radiology per HPI. ASSESSMENT: 1. Metastatic prostate cancer. 2. Chronic pancytopenia. 3. Acute gastrointestinal bleed. 4. End-stage renal disease on hemodialysis. 5. Atrial fibrillation. DISCUSSION: Again, please note that the patient has 2 medical record numbers. His history prior to this visit in on [id number]. The patient has been pancytopenic since 07/2017. I do not think he has seen his oncologist, Dr. Quinteros or Dr. Garcia recently. Recommended he follow-up with them for evaluation of the pancytopenia. This may be treatment related or poorly controlled metastatic disease. We will check a PSA at this time and he should be transfused p.r.n.. Continue the Procrit with hemodialysis. I will try to obtain some medical records from his oncologist's office. He may need a bone marrow, but this could be done in the outpatient setting by his oncologist. Thank you for the consult. We will follow his hospital course. HUSAM
[2018-01-27] MEDS: Gabapentin 300 MG CAP PO SCH (21:12)
[2018-01-27] MEDS: Doxazosin 2 MG TAB PO SCH (21:12)
[2018-01-28 06:19] LABS: Band 19 % (5-11); Hemoglobin 6.1 g/dL (14.0-18.0); Lymphocytes 26 % (21-51); MDiff Complete? YES; Mean Corpuscular HGB CONC 34.6 g/dL (32.0-36.0); Mean Corpuscular Hemoglobin 30.7 pg (27.0-31.0); Mean Corpuscular Volume 88.6 fl (80.0-94.0); Mean Platelet Volume 8.5 fL (7.4-10.4); Metamyelocyte 2 % (0-0); Monocytes 10 % (0-10); Neutrophil 43 % (42-75); PLT Morphology Comment Appears Decreased; Platelet Count 33 thou/uL (130-400); RBC Distribution Width 12.7 % (11.5-14.5); Red Blood Cell (RBC) Count 1.98 mill/uL (4.70-6.10); White Blood Cell (WBC) Count 2.3 thou/uL (4.8-10.8)
[2018-01-28] MEDS: Acetaminophen 325 MG TAB PO PRN ×2 (06:23→16:30)
[2018-01-28 06:26] LABS: Anion Gap 13 mmol/L (10-20); BUN (Urea Nitrogen) 74 mg/dL (8.4-25.7); Calc. Creatinine Clearance 14 mL/min (70-130); Calcium 7.5 mg/dL (7.8-10.44); Carbon Dioxide 26 mmol/L (23-31); Chloride 102 mmol/L (98-107); Estimated GFR-MDRD 15; Glucose 104 mg/dL (83-110); Potassium 3.2 mmol/L (3.5-5.1); Sodium 138 mmol/L (136-145)
[2018-01-28] MEDS: metroNIDAZOLE 500 MG TAB PO SCH ×3 (06:46→22:52)
[2018-01-28] MEDS: Calcium Acetate 667 MG CAP PO SCH ×3 (09:17→16:30)
[2018-01-28] MEDS: Bicalutamide 50 MG TAB PO SCH (09:17)
[2018-01-28] MEDS: Saccharomyces boulardii 250 MG CAP PO SCH (09:18)
[2018-01-28] MEDS: Amiodarone 200 MG TAB PO SCH ×2 (09:30→20:38)
[2018-01-28] MEDS: cefTRIAXone\\ROCEPHIN 2 GM in Sodium Chloride 0.9% 100 ML IVPB SCH (13:27)
--- NOTE | 2018-01-28 17:22 | PDOC.PN ---
- Subjective Encounter Start Date: 01/28/18 Encounter Start Time: 17:00 Subjective: f/u for sepsis due to Klebsiella spp and C. diff antigen colitis. Continues -: to spike fevers on Rocephin, Metronidazole. Remains weak and has some bilat -: hip pain with x-rays showing metastatic lesions. - Objective Resuscitation Status: Resuscitation Status FULL:Full Resuscitation MAR Reviewed: Yes Vital Signs & Weight: Vital Signs (12 hours) Temp Pulse Resp BP BP Pulse Ox 01/28/18 16:00 101.9 F H 131 H 20 96/54 L 94 L 01/28/18 12:00 99.6 F 115 H 16 97/53 L 96 01/28/18 09:15 100/54 L 01/28/18 08:00 99.1 F 107 H 18 97 01/28/18 07:34 99.1 F 107 H 18 81/45 L 97 Weight Weight 172 lb 8 oz I&O: 01/27/18 01/28/18 01/29/18 06:59 06:59 06:59 Intake Total 1150 1160 Output Total 1100 50 Balance 50 1110 Result Diagrams: 01/28/18 05:02 01/28/18 05:02 Additional Labs: Microbiology 01/23/18 14:33 Stool - Liquid Stool Occult Blood (JUANPABLO) - Final 01/23/18 14:33 Stool C. difficile GDH Antigen & Toxins - Final 01/23/18 14:33 Stool Clostridium difficile Toxin A&B PCR - Final 01/19/18 07:28 Venous blood - Right Arm Blood Culture - Final Klebsiella pneumoniae ssp pneu 01/19/18 07:20 Venous blood - Right Arm Blood Culture - Final Klebsiella pneumoniae ssp pneu Laboratory Tests 01/19/18 01/19/18 01/19/18 07:20 07:20 07:20 WBC 2.0 L Hgb 5.6 L* Plt Count 11 L* Band Neuts % (Manual) Creatinine 5.34 H Lactic Acid 1.9 01/20/18 01/22/18 01/23/18 03:56 16:26 05:30 WBC 2.9 L 1.9 L Hgb 5.9 L* 6.4 L Plt Count 23 L* 16 L* Band Neuts % (Manual) Creatinine 3.46 H Lactic Acid 06/14/18 06/15/18 05:31 12:30 WBC 2.1 L Hgb 5.8 L* Plt Count 11 L* Band Neuts % (Manual) 9 20 H Creatinine Lactic Acid Radiology Reviewed by me: Yes (L Hip X-ray - metastatic lesions) EKG Reviewed by me: Yes (Tele - A-fib RVR) Phys Exam - Physical Examination weak appearing, responds to questions HEENT: PERRLA, sclera anicteric, oral pharynx no lesions Neck: no nodes, no JVD, supple, full ROM Respiratory: no wheezing, no rales, no rhonchi, clear to auscultation bilateral tachycardic S1, S2 Cardiovascular: no significant murmur, no rub, irregular Gastrointestinal: soft, non-tender, no distention, positive bowel sounds Musculoskeletal: no edema, pulses present Neurological: normal sensation, moves all 4 limbs Psychiatric: normal affect, A&O x 3 Skin: no rash, normal turgor, cap refill <2 seconds Dx/Plan (1) Sepsis Code(s): A41.9 - SEPSIS, UNSPECIFIED ORGANISM Status: Acute Comment: Secondary to Klebsiella bacteremia, continue Rocephin and d/c Zosyn, continues to spike fevers despite abx therapy, Ucx negative and Blood cx neg from 01/26/18 (2) Normocytic anemia Code(s): D64.9 - ANEMIA, UNSPECIFIED Status: Chronic Comment: s/p total 10u PRBC's total, serial H/H monitoring, GI service reluctant for endoscopy due to thrombocytopenia, Medical oncology assistance appreciated, serial H/H monitoring , GI blood loss etiology of recurrent anemia and will continue given severe thrombocytopenia and advanced prostate carcinoma (3) UTI due to Klebsiella species Code(s): N39.0 - URINARY TRACT INFECTION, SITE NOT SPECIFIED; B96.1 - KLEBSIELLA PNEUMONIAE THE CAUSE OF DISEASES CLASSD ELSWHR Status: Acute Comment: Suspected, continue Rocephin, d/c Zosyn (4) Atrial fibrillation with RVR Code(s): I48.91 - UNSPECIFIED ATRIAL FIBRILLATION Status: Acute Comment: Recurrent and exacerbated by fever, Amiodarone 400mg BID, trial IVF's given sepsis and diarrhea, Metoprolol held due to hypotension (5) ESRD on dialysis Code(s): N18.6 - END STAGE RENAL DISEASE; Z99.2 - DEPENDENCE ON RENAL DIALYSIS Status: Chronic Comment: HD planned //Sun (6) Pancytopenia Code(s): D61.818 - OTHER PANCYTOPENIA Status: Chronic Comment: Persistent state, complicating current condition and exacerbating likelihood of persistent infection and GI bleeding (7) Clostridium difficile diarrhea Code(s): A04.72 - ENTEROCOLITIS D/T CLOSTRIDIUM DIFFICILE, NOT SPCF RECUR Status: Acute Comment: Add Vancomycin 125mg po q6h, continue Metronidazole 500mg TID, Florastor daily - Plan plan discussed w/ family, continue antibiotics, [employer] and crm, DVT proph w/ SCDs Continue supportive mgmt -: Discussed at length the current clinical situation with family members and -: persistent clinical decline despite medical therapy, family considering -: Palliative/Hospice care -: Add Vancomycin 125mg po q6h * Start IVF NS 50ml/h * K-Dur 20meq PO BID * AM lab: BMP, CBC
[2018-01-28] MEDS ORDERED: Potassium Chloride 20 MEQ TAB PO SCH (17:30)
--- NOTE | 2018-01-28 17:48 | PDOC.EVN ---
Event Note - Event Note Event Note: ACP Note: Discussed the current clinical situation with patient, his , son and daughter today regarding progressive decline despite optimal medical therapy. Pt's advancing prostate carcinoma leading to severe pancytopenia and ongoing GI blood loss and propensity to infection has outpaced medical management. We discussed goals of care and the symptom manangement. Optimization of medical therapy nearing completion and patient continues declining. Due to co-morbid status and maximal medical therapy but persistent decline the family and patient wishing to consider Hospice options for home care. The patient and family will discuss short term goals today and will continue discussions with palliative care team locally. Family verbalizing understanding and agreement with overall goals of symptom management. Total Time 25min
[2018-01-28] MEDS: Sodium Chloride 0.9% 1,000 ML IV SCH (18:12)
[2018-01-28] MEDS: traMADol HCl 50 MG TAB PO PRN (19:23)
[2018-01-28] MEDS: Vancomycin HCl 25 MG/ML Oral PO SCH ×2 (19:25→22:52)
[2018-01-28] MEDS: Gabapentin 300 MG CAP PO SCH (20:38)
[2018-01-28] MEDS ORDERED: Melatonin 3 MG TAB PO PRN (20:54)
[2018-01-28] MEDS: Doxazosin 2 MG TAB PO SCH (22:03)
[2018-01-29] MEDS: traMADol HCl 50 MG TAB PO PRN (04:13)
[2018-01-29 05:52] LABS: Anion Gap 15 mmol/L (10-20); BUN (Urea Nitrogen) 98 mg/dL (8.4-25.7); Calc. Creatinine Clearance 12 mL/min (70-130); Calcium 7.3 mg/dL (7.8-10.44); Carbon Dioxide 24 mmol/L (23-31); Chloride 104 mmol/L (98-107); Estimated GFR-MDRD 12; Glucose 109 mg/dL (83-110); Hemoglobin 5.1 g/dL (14.0-18.0); INR-International Normal Ratio 1.5; Mean Corpuscular HGB CONC 34.9 g/dL (32.0-36.0); Mean Corpuscular Hemoglobin 31.3 pg (27.0-31.0); Mean Corpuscular Volume 89.8 fl (80.0-94.0); Mean Platelet Volume 9.7 fL (7.4-10.4); PTT 42.2 SEC (22.9-36.1); Platelet Count 19 thou/uL (130-400); Potassium 3.3 mmol/L (3.5-5.1); Prothrombin Time 18.2 SEC (12.0-14.7); RBC Distribution Width 12.7 % (11.5-14.5); Red Blood Cell (RBC) Count 1.63 mill/uL (4.70-6.10); Sodium 140 mmol/L (136-145); White Blood Cell (WBC) Count 2.2 thou/uL (4.8-10.8)
[2018-01-29 05:57] LABS: Band 23 % (5-11); Hypochromia SLIGHT = 6-15 cells (100X) (0-5/hpf); Lymphocytes 29 % (21-51); MDiff Complete? YES; Microcytosis MODERATE=15-30 cells (100X) (0-5/hpf); Monocytes 7 % (0-10); Neutrophil 41 % (42-75); PLT Morphology Comment Appears Decreased
[2018-01-29] MEDS: metroNIDAZOLE 500 MG TAB PO SCH (06:24)
[2018-01-29] MEDS: Vancomycin HCl 25 MG/ML Oral PO SCH ×2 (06:24→12:00)
[2018-01-29 06:26] VITALS: BMI 24.2
[2018-01-29] MEDS ORDERED: Potassium Chloride 20 MEQ TAB PO SCH (08:00)
[2018-01-29] MEDS: Amiodarone 200 MG TAB PO SCH (08:59)
[2018-01-29] MEDS: Bicalutamide 50 MG TAB PO SCH (09:00)
[2018-01-29] MEDS: Saccharomyces boulardii 250 MG CAP PO SCH (09:00)
[2018-01-29] MEDS: Calcium Acetate 667 MG CAP PO SCH ×2 (09:06→13:29)
[2018-01-29 11:18] VITALS: BP 85/45; TEMP 97.7
[2018-01-29] MEDS: cefTRIAXone\\ROCEPHIN 2 GM in Sodium Chloride 0.9% 100 ML IVPB SCH (12:00)
--- NOTE | 2018-01-29 13:08 | DIS ---
DATE OF ADMISSION: 01/19/2018 DATE OF DISCHARGE: 01/29/2018 DISCHARGE DIAGNOSES: 1. Sepsis secondarily to Klebsiella bacteremia, suspected urinary source. 2. Acute on chronic normocytic anemia, status post 10 units of packed red blood cells. 3. Acute blood loss anemia secondarily to gastrointestinal bleed. 4. Urinary tract infection with Klebsiella species. 5. Atrial fibrillation with rapid ventricular response. 6. End-stage renal disease, on hemodialysis. 7. Pancytopenia secondary to metastatic prostate carcinoma. 8. Clostridium difficile antigen, positive diarrhea. 9. Physical deconditioning. CONSULTATIONS: Dr. Zaidi with Nephrology Service. Medical Oncology Service. Dr. Linton and Dr. Beauchamp with GI Service. Dr. Schmidt with Pulmonology Service. PERTINENT LABORATORY AND X-RAY FINDINGS: Potassium ranged between 3.1-4.3, creatinine ranged between 3.46-5.56. Estimated GFR ranged between 10-21. Lactic acid level 1.9, prostate specific antigen 15 4. CBC showed a white blood cell count ranging between 1.9-3.2, hemoglobin ranged between 5.1-8.4, p latelet count ranged between 11-55. Blood cultures x2 from 01/19/2018, positive for Klebsiella pneum onia species, pansensitive. C. difficile antigen positive from 01/23/2018. Stool Hemoccult positive from 01/23/2018. Blood cultures x2 from 01/26/2018, showed no growth at 48 hours. Urine culture da guadalupe 01/28/2018, showed no growth at 12 hours. Portable chest x-ray dated 01/19/2018 showed pulmonary vascular prominence. Two views of the left hip dated 01/19/2018, showed no acute osseous abnormalit y. A 2D transthoracic echocardiogram dated 01/20/2018, showed ejection fraction of 60%-65%. Technic ally limited study. Left atrial with mild dilation. Two views of the right hip dated 01/27/2018, sh owed sclerotic bony lesion suspicious for metastatic process. HOSPITAL COURSE: The patient was initially admitted after presenting with generalized weakness in th e context of multiple metabolic derangements and comorbid status including metastatic prostate carcin viviane. The patient was initially managed for sepsis, suspected urinary source with Klebsiella species in 2 out of 2 blood cultures. The patient was placed on broad spectrum antibiotic therapy including vancomycin and Zosyn, and continued on IV antibiotic therapy throughout the hospital course. The pat ient had a complicated hospital course with clinical decompensation regarding recurrent GI bleeding, requiring a total of 10 units of packed red blood cells during the course of the hospital stay. The patient also required 2 packs of platelets due to severe thrombocytopenia. The patient was evaluated by the GI service; however, due to severe thrombocytopenia and risk for further bleeding, the marcia t was not deemed appropriate or safe candidate for endoscopy. The patient was continually monitored with serial hemoglobins decreasing despite packed red blood cell transfusions. The patient was noted with increasing diarrhea and C. difficile antigen was positive. The patient was placed on Flagyl 50 0 mg t.i.d. as well as vancomycin with some improvement in overall frequency and volume of diarrhea. The patient continued to receive maintenance hemodialysis during the hospital course and was transfu sed packed red blood cells as stated previously during his hemodialysis sessions. The patient also w as noted clinically decompensating in regards to atrial fibrillation with telemetry showing rapid jaren tricular response and associated hypotension. The patient was evaluated by the Cardiology service an d placed on amiodarone therapy due to hypotension and inability to use regular beta blockade therapy and calcium channel blockers. The patient continued to exhibit hypotension despite adjustment to his cardiac medication regimen. The patient was also evaluated for increasing right hip pain with plain radiographs showing evidence of metastatic bony lesions consistent with prostate carcinoma. The rodríguez ient was evaluated by the medical oncology service for any further recommendations; however, no speci fic recommendations for acute intervention were noted and symptomatic and supportive management was c ontinued. Due to patient's multiple comorbid status and progressive clinical decline despite compreh ensive medical therapy and interventions. Family and patient were discussing palliative care measure s and hospice care. The patient was deemed an appropriate hospice candidate after meeting with [facility] agency with wishes to pursue inpatient hospice on discharge. The patient converted to do not resu scitate status and ready for transfer to inpatient hospice on 01/29/2018. I have examined the patien t at the time of discharge and discussed pertinent laboratory and radiographic findings as well as pl ans for followup and hospice care. The patient and family verbalizing understanding and agreement an d wishing to pursue hospice care 01/29/2018. DISCHARGE MEDICATIONS: 1. Amiodarone 400 mg p.o. b.i.d. 2. Casodex 50 mg p.o. daily. 3. Calcium carbonate 667 mg p.o. t.i.d. 4. Vitamin D3 2000 units p.o. daily. 5. Cardura 16 mg p.o. at bedtime. 6. Gabapentin 300 mg p.o. at bedtime. 7. Levaquin 250 mg p.o. q.48 hours. 8. Melatonin 3 mg p.o. at bedtime. 9. Metronidazole 500 mg p.o. t.i.d. 10. K-Dur 20 mEq p.o. b.i.d. 11. Florastor 250 mg p.o. daily. 12. Tramadol 50 mg p.o. every 6 hours p.r.n. 13. Vancomycin 125 mg p.o. q.6 hours. FOLLOWUP: The patient may follow up with [facility] on discharge. The patient may also follow up with her primary care provider Dr. Sly Franz as needed. CONDITION ON DISCHARGE: Guarded. ACTIVITY: ad kendra. DIET: Regular. CODE STATUS: Do not resuscitate, do not intubate. DISPOSITION: Transfer to [facility] unit on 01/29/2018. Total time preparing in coordinating discharge 39 minutes.
[2018-01-29] MEDS: Sodium Chloride 0.9% 1,000 ML IV SCH (13:30)
--- NOTE | 2018-01-30 12:34 | EKG ---
Test Reason : AFIB Blood Pressure : / mmHG Vent. Rate : 135 BPM Atrial Rate : 144 BPM P-R Int : 000 ms QRS Dur : 082 ms QT Int : 328 ms P-R-T Axes : 000 040 106 degrees QTc Int : 492 ms Atrial fibrillation with rapid ventricular response with premature ventricular or aberrantly conducte d complexes Nonspecific ST and T wave abnormality Abnormal ECG Confirmed by FABIO CORTEZ ([id number]), loan expeditor YADIEL HOWARD ([id number]) on 01/30/2018 12:32:37 PM Referred By: Confirmed By:FABIO CORTEZ
== END 2018-01-29 14:55 | disposition hospice, inpatient (51) | DRG 871 ==
LOC: EDBD 06:46 → ERS 06:46 → MERGE 10:09 → IMCU/EMU 10:09 → 2NO 01-21 13:16
PROVIDERS: ADMIT Internal Medicine; ATTEND Internal Medicine
PROC: 5A1D70Z Performance of Urinary Filtration, Intermittent, Less than 6 Hours Per Day (ICD-10-PCS; principal; 2018-01-19)
PROC: 30233R1 Transfusion of Nonautologous Platelets into Peripheral Vein, Percutaneous Approach (ICD-10-PCS; 2018-01-19)
PROC: 30233N1 Transfusion of Nonautologous Red Blood Cells into Peripheral Vein, Percutaneous Approach (ICD-10-PCS; 2018-01-19)
DX: A41.59 Other Gram-negative sepsis (principal); N18.6 End stage renal disease; K55.21 Angiodysplasia of colon with hemorrhage; I12.0 Hypertensive chronic kidney disease with stage 5 chronic kidney disease or end stage renal disease; D61.818 Other pancytopenia; N39.0 Urinary tract infection, site not specified; C79.51 Secondary malignant neoplasm of bone; A04.72 Enterocolitis due to Clostridium difficile, not specified as recurrent; Z99.2 Dependence on renal dialysis; I48.0 Paroxysmal atrial fibrillation; C61 Malignant neoplasm of prostate; M25.552 Pain in left hip; M81.0 Age-related osteoporosis without current pathological fracture; K21.9 Gastro-esophageal reflux disease without esophagitis; Z66 Do not resuscitate; K62.1 Rectal polyp; Z87.19 Personal history of other diseases of the digestive system; Z87.891 Personal history of nicotine dependence; Z92.3 Personal history of irradiation; Z92.21 Personal history of antineoplastic chemotherapy; T45.1X5A Adverse effect of antineoplastic and immunosuppressive drugs, initial encounter; W18.30XA Fall on same level, unspecified, initial encounter; Y92.009 Unspecified place in unspecified non-institutional (private) residence as the place of occurrence of the external cause
CPT/HCPCS: 36415; 36416; 36430; 71045; 72170; 80048; 80053; 80202; 81003; 81015; 82274; 82553; 83605; 84153; 84484; 85007; 85025; 85027; 85060; 85610; 85730; 86850; 86900; 86901; 87040; 87077; 87086; 87149; 87186; 87324; 87340; 87449; 87493; 90935; 93005; 93306; 96365; 96367; 96376; A4216; G0257; G8978-GP-CN; G8979-GP-CK; J0696; J0885; J2270; J2543; J3370; J7050; P9016; P9035